=== PATIENT | female | born 1945 | race Caucasian/White ===

== ENCOUNTER 2016-09-27 11:45 | Emergency (ER) | payer MEDICARE, BC ==
[2016-09-27] MEDS ORDERED: IPRATROPIUM/ALBUTEROL (0.5MG/3MG) NEB INH ONE (11:56)
[2016-09-27] MEDS ORDERED: METHYLPREDNISOLONE PF 125MG/VIAL IVP ONE (11:56)
--- NOTE | 2016-09-27 12:05 | Emergency Department Record ---
History of Present Illness - General Chief Complaint: Difficulty Breathing Stated Complaint: CHIDI Time Seen by Provider: 09/27/16 11:55 Source: Patient, Family Mode of Arrival: Wheelchair Limitations: No limitations - History of Present Illness Initial Comments: 70 yo female presents with cough and wheezing today. She has a history of COPD and prior history of PE. She states over the last few weeks she has had good days and bad days regarding her wheezing. Today she feels wheezing and she is short of breath with activity. No fevers. She is on 2 LNC at home. She was diagnosed with a PE in 2014. She is on Coumadin 4mg daily. PCP is Dr Johnston. Her cough is non productive. No pain in the chest. No leg swelling recently. No hemoptysis. MD Complaint: Shortness of breath Onset/Timin -: Days(s) Radiation: Back Consistency: Constant Improves With: Nothing Worsens With: Exertion Associated Symptoms: Denies other symptoms Treatments Prior to Arrival: Bronchodilator Treatment Prior to Arrival Comment:: home breathing tx. - Related Data Home Medications Medication Instructions Recorded Confirmed Last Taken Albuterol Sulfate 1 ml INH DAILY 12/07/13 09/27/16 09/26/16 Albuterol Sulfate [Proair Hfa] 2 puff INH ASDIR 12/07/13 09/27/16 09/26/16 Brovana 2.5 mg PO DAILY 12/07/13 09/27/16 09/26/16 Calcium Carbonate/Vitamin D3 1 tab PO DAILY 12/07/13 09/27/16 09/26/16 [Calcium 600 + Vit D Tablet] Lutein 20 mg PO DAILY 12/07/13 09/27/16 09/26/16 Tiotropium [place] [Spiriva] 1 puff INH DAILY 12/07/13 09/27/16 09/26/16 Atorvastatin Calcium 40 mg PO DAILY 10/13/14 09/27/16 09/26/16 Levothyroxine Sodium [Synthroid] 25 mcg PO DAILY 10/13/14 09/27/16 09/26/16 Ranitidine HCl [Zantac] 75 mg PO QHS PRN 10/13/14 09/27/16 09/26/16 Alendronate Sodium 1 tab PO WEEKLY 11/23/14 09/27/16 09/26/16 Citalopram Hydrobromide 20 mg PO DAILY 11/23/14 09/27/16 09/27/16 [Citalopram HBr] Warfarin Sodium [Coumadin] 4 mg PO DAILY 09/27/16 09/27/16 09/26/16 Previous Rx's Medication Instructions Recorded Amoxicillin 500 mg PO TID #21 capsule 09/27/16 Prednisone [Prednisone 20Mg] 20 mg PO BID #10 tab 09/27/16 Allergies Allergy/AdvReac Type Severity Reaction Status Date / Time regadenoson [From Lexiscan] AdvReac HYPERSENSIT Verified 11/23/14 01:15 IVITY Travel Screening - Travel/Exposure Within Last 30 Days Have you traveled within the last 30 days?: No - Travel/Exposure Within Last Year Have you traveled outside the [place] in the last year?: No - Additonal Travel Details Have you been exposed to anyone with a communicable illness?: No Review of Systems Constitutional: Denies: Chills, Fever, Weakness Eyes: Denies: Eye discharge ENT: Denies: Congestion, Ear pain, Throat pain Respiratory: Reports: Cough, Dyspnea, Wheezes Cardiovascular: Denies: Chest pain, Palpitations, Syncope Endocrine: Denies: Fatigue, Polydipsia, Polyuria Gastrointestinal: Denies: Abdominal pain, Diarrhea, Nausea, Vomiting Genitourinary: Denies: Dysuria, Urgency Musculoskeletal: Denies: Arthralgia, Back pain, Joint swelling, Myalgia, Neck pain Skin: Denies: Bruising, Change in color, Rash Neurological: Denies: Headache, Numbness, Vertigo, Weakness Psychiatric: Denies: Anxiety Hematological/Lymphatic: Denies: Blood Clots, Easy bleeding, Easy bruising, Swollen glands Past Medical History - SOCIAL HISTORY Smoking Status: Former smoker Alcohol Use: None Drug Use: None - RESPIRATORY Hx Respiratory Disorders: Yes Hx Asthma: Yes Hx COPD: Yes Comment:: 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 - CARDIOVASCULAR Hx Cardio Disorders: No - NEURO Hx Neuro Disorders: No - GI Hx GI Disorders: No Hx Obstructive Bowel: Yes - Hx Genitourinary Disorders: No Hx Bladder Problem: Yes - ENDOCRINE Hx Endocrine Disorders: No Hx Diabetes: No Hx Thyroid Disease: Yes - MUSCULOSKELETAL Hx Musculoskeletal Disorders: Yes Hx Arthritis: Yes Hx Osteoporosis: Yes Comment:: leg fx - PSYCH Hx Psych Problems: No - HEMATOLOGY/ONCOLOGY Hx Hematology/Oncology Disorders: Yes Hx Cancer: Yes (Lung) Hx Chemotherapy: Yes Hx Radiation Therapy: Yes Comment:: prophylactic radiation to brain Family Medical History Any Significant Family History?: No Hx Dementia: Grandparents Hx Depression: Mother Hx Heart Disease: Father, Mother, Brother/Sister Hx HTN: Brother/Sister Hx Resp Disorders: Mother Physical Exam - General General Appearance: Alert, Oriented x3, Cooperative, No acute distress - Head Head exam: Atraumatic, Normal inspection - Eye Eye exam: Normal appearance, PERRL. negative: Conjunctival injection, Periorbital swelling - ENT ENT exam: Normal exam, Mucous membranes moist Ear exam: Normal external inspection Nasal Exam: Normal inspection Mouth exam: Normal external inspection Teeth exam: Normal inspection Throat exam: Normal inspection - Neck Neck exam: Normal inspection, Full ROM. negative: Tenderness - Respiratory Respiratory exam: Accessory muscle use, Decreased breath sounds, Prolonged expiratory, Wheezes. negative: Normal lung sounds bilaterally - Cardiovascular Cardiovascular Exam: Normal rhythm, Tachycardia - GI/Abdominal GI/Abdominal exam: Soft. negative: Tenderness - Rectal Rectal exam: Deferred - exam: Deferred - Extremities Extremities exam: Normal inspection, Full ROM, Normal capillary refill. negative: Pedal edema, Tenderness - Back Back exam: Reports: Normal inspection, Full ROM. Denies: Muscle spasm, Rash noted, Tenderness - Neurological Neurological exam: Alert, Normal gait, Oriented X3, Reflexes normal - Psychiatric Psychiatric exam: Normal affect, Normal mood - Skin Skin exam: Dry, Intact, Normal color, Warm Course Vital Signs 09/27/16 11:47 Temperature 98.4 F Pulse Rate 107 H Respiratory 24 Rate Blood Pressure 143/83 Pulse Ox 97 - Reevaluation(s) Reevaluation #1: EKG 11:48am sinus tachycardia at 103, intervals normal, axis normal, ST NS ST depression RT in the room for a breathing treatment 09/27/16 11:59 Reevaluation #2: The labs were reviewed. No acute changes with normal Troponin,BNP, and D-Dimer She is therapeutic on her Coumadin She is feeling greatly improved at this time. 09/27/16 12:53 On examination she is speaking in full sentences, moving air very well. Only minimal residual wheeze. 09/27/16 13:10 09/27/16 13:18 Reevaluation #3: The patient continues to do very well. She feels like she is close to baseline and ready to go home. I encourage longer observation and recheck. CXR is pending. She ambulated to the bathroom well without difficulty 09/27/16 13:56 Reevaluation #4: Repeat enzymes are negative The patient remains very comfortable on her baseline requirements DC home stable. 09/27/16 15:17 Medical Decision Making - Lab Data Result diagrams: 09/27/16 12:05 09/27/16 12:05 Disposition Disposition: Discharge Clinical Impression: COPD exacerbation Disposition: Home, Self-Care Condition: (1) Good Instructions: COPD Exacerbation, Vaccine Specialist (GEN) Additional Instructions: Take the Prednisone twice daily for the next 5 days Take the Amoxicillin three times daily Return if you have fever, short of breath, or any new concerns Antibiotics can effect your Coumadin. You will need to have your levels checked more frequently. Prescriptions: Amoxicillin 500 mg PO TID #21 capsule Prednisone [Prednisone 20Mg] 20 mg PO BID #10 tab Forms: Patient Portal Access Time of Disposition: 15:18
[2016-09-27 12:11] LABS: BASO % 0.6 % (0-6); EOS % 1.9 % (0-6); GRAN % 70.8 % (47-80); HEMATOCRIT 39.1 % (35.0-47.0); HEMOGLOBIN 12.1 gm/dl (11.6-16.0); LYMPH % 15.7 % (16-45); MEAN CELL VOLUME 87.5 fl (81-97); MEAN CORPUSCULAR HEMOGLOBIN 27.1 pg (27-33); MEAN CORPUSCULAR HGB CONC 30.9 g/dl (32-36); MEAN PLATELET VOLUME 9.9 fl (7.4-10.4); PLATELET COUNT 330 K/uL (130-400); RED BLOOD COUNT 4.47 M/uL (3.80-5.40); RED CELL DISTRIBUTION WIDTH 13.9 % (11.5-14.5); WHITE BLOOD COUNT W/O DIFF 6.8 K/uL (4.2-12.2)
[2016-09-27 12:23] LABS: ALB/GLOB RATIO 1.4 (1.1-1.8); ALBUMIN 4.3 gm/dL (3.5-5.0); ALKALINE PHOSPHATASE 99 U/L (38-126); ALT/SGPT 24 U/L (9-52); ANION GAP 6.3 (7-16); AST/SGOT 22 U/L (14-36); BILIRUBIN,TOTAL 0.53 mg/dL (0.2-1.3); BLOOD UREA NITROGEN 10 mg/dL (7-17); CARBON DIOXIDE 27.7 mmol/L (22-30); CREATININE 0.8 mg/dL (0.52-1.04); EST GLOMERULAR FILTRATION RATE > 60 ml/min; GLUCOSE,RANDOM 99 mg/dL (70-110); TOTAL PROTEIN 7.4 gm/dL (6.3-8.2)
[2016-09-27 12:32] LABS: D-DIMER < 0.19 mg/L FEU (0-0.59); INR 3.22; PROTHROMBIN TIME (PATIENT) 36.4 SECONDS (9.5-12.1)
[2016-09-27 12:35] LABS: TROPONIN I < 0.012 ng/mL (0.00-0.034)
[2016-09-27] MEDS ORDERED: AMOXICILLIN 500MG CAPSULE PO ONE (13:58)
--- NOTE | 2016-09-27 15:24 | Emergency Department Record ---
History of Present Illness - General Chief Complaint: Difficulty Breathing Stated Complaint: CHIDI Time Seen by Provider: 09/27/16 11:55 Source: Patient, Family Mode of Arrival: Wheelchair Limitations: No limitations - History of Present Illness Onset/Timin -: Days(s) Radiation: Back Consistency: Constant Improves With: Nothing Worsens With: Exertion Associated Symptoms: Denies other symptoms Treatments Prior to Arrival: Bronchodilator Treatment Prior to Arrival Comment:: home breathing tx. - Related Data Home Medications Medication Instructions Recorded Confirmed Last Taken Albuterol Sulfate 1 ml INH DAILY 12/07/13 09/27/16 09/26/16 Albuterol Sulfate [Proair Hfa] 2 puff INH ASDIR 12/07/13 09/27/16 09/26/16 Brovana 2.5 mg PO DAILY 12/07/13 09/27/16 09/26/16 Calcium Carbonate/Vitamin D3 1 tab PO DAILY 12/07/13 09/27/16 09/26/16 [Calcium 600 + Vit D Tablet] Lutein 20 mg PO DAILY 12/07/13 09/27/16 09/26/16 Tiotropium [place] [Spiriva] 1 puff INH DAILY 12/07/13 09/27/16 09/26/16 Atorvastatin Calcium 40 mg PO DAILY 10/13/14 09/27/16 09/26/16 Levothyroxine Sodium [Synthroid] 25 mcg PO DAILY 10/13/14 09/27/16 09/26/16 Ranitidine HCl [Zantac] 75 mg PO QHS PRN 10/13/14 09/27/16 09/26/16 Alendronate Sodium 1 tab PO WEEKLY 11/23/14 09/27/16 09/26/16 Citalopram Hydrobromide 20 mg PO DAILY 11/23/14 09/27/16 09/27/16 [Citalopram HBr] Warfarin Sodium [Coumadin] 4 mg PO DAILY 09/27/16 09/27/16 09/26/16 Previous Rx's Medication Instructions Recorded Amoxicillin 500 mg PO TID #21 capsule 09/27/16 Amoxicillin 500 mg PO TID #21 capsule 09/27/16 Prednisone [Prednisone 20Mg] 20 mg PO BID #10 tab 09/27/16 Prednisone [Prednisone 20Mg] 20 mg PO BID #10 tab 09/27/16 Allergies Allergy/AdvReac Type Severity Reaction Status Date / Time regadenoson [From Lexiscan] AdvReac HYPERSENSIT Verified 11/23/14 01:15 IVITY Travel Screening - Travel/Exposure Within Last 30 Days Have you traveled within the last 30 days?: No - Travel/Exposure Within Last Year Have you traveled outside the [place] in the last year?: No - Additonal Travel Details Have you been exposed to anyone with a communicable illness?: No Review of Systems Constitutional: Denies: Chills, Fever, Weakness Eyes: Denies: Eye discharge ENT: Denies: Congestion, Ear pain, Throat pain Respiratory: Reports: Cough, Dyspnea, Wheezes Cardiovascular: Denies: Chest pain, Palpitations, Syncope Endocrine: Denies: Fatigue, Polydipsia, Polyuria Gastrointestinal: Denies: Abdominal pain, Diarrhea, Nausea, Vomiting Genitourinary: Denies: Dysuria, Urgency Musculoskeletal: Denies: Arthralgia, Back pain, Joint swelling, Myalgia, Neck pain Skin: Denies: Bruising, Change in color, Rash Neurological: Denies: Headache, Numbness, Vertigo, Weakness Psychiatric: Denies: Anxiety Hematological/Lymphatic: Denies: Blood Clots, Easy bleeding, Easy bruising, Swollen glands Past Medical History - SOCIAL HISTORY Smoking Status: Former smoker Alcohol Use: None Drug Use: None - RESPIRATORY Hx Respiratory Disorders: Yes Hx Asthma: Yes Hx COPD: Yes Comment:: 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 - CARDIOVASCULAR Hx Cardio Disorders: No - NEURO Hx Neuro Disorders: No - GI Hx GI Disorders: No Hx Obstructive Bowel: Yes - Hx Genitourinary Disorders: No Hx Bladder Problem: Yes - ENDOCRINE Hx Endocrine Disorders: No Hx Diabetes: No Hx Thyroid Disease: Yes - MUSCULOSKELETAL Hx Musculoskeletal Disorders: Yes Hx Arthritis: Yes Hx Osteoporosis: Yes Comment:: leg fx - PSYCH Hx Psych Problems: No - HEMATOLOGY/ONCOLOGY Hx Hematology/Oncology Disorders: Yes Hx Cancer: Yes (Lung) Hx Chemotherapy: Yes Hx Radiation Therapy: Yes Comment:: prophylactic radiation to brain Family Medical History Any Significant Family History?: No Hx Dementia: Grandparents Hx Depression: Mother Hx Heart Disease: Father, Mother, Brother/Sister Hx HTN: Brother/Sister Hx Resp Disorders: Mother Physical Exam - General Limitations: No limitations Course Vital Signs 09/27/16 09/27/16 09/27/16 11:47 12:02 12:10 Temperature 98.4 F Pulse Rate 107 H 98 H Pulse Rate [ 91 H Pulse Ox Probe] Respiratory 24 20 20 Rate Blood Pressure 143/83 Blood Pressure 110/66 [Right Arm] Pulse Ox 97 98 98 09/27/16 09/27/16 13:34 14:14 Temperature Pulse Rate Pulse Rate [ 92 H 88 Pulse Ox Probe] Respiratory 16 16 Rate Blood Pressure Blood Pressure 129/82 128/82 [Right Arm] Pulse Ox 98 98 Medical Decision Making - Lab Data Result diagrams: 09/27/16 12:05 09/27/16 12:05 Lab Results 09/27/16 09/27/16 09/27/16 Range/Units 12:05 12:05 12:05 WBC 6.8 (4.2-12.2) K/uL RBC 4.47 (3.80-5.40) M/uL Hgb 12.1 (11.6-16.0) gm/dl Hct 39.1 (35.0-47.0) % MCV 87.5 (81-97) fl MCH 27.1 (27-33) pg MCHC 30.9 L (32-36) g/dl RDW 13.9 (11.5-14.5) % Plt Count 330 (130-400) K/uL MPV 9.9 (7.4-10.4) fl Gran % 70.8 (47-80) % Lymphocytes % 15.7 L (16-45) % Monocytes % 11.0 H (0-9) % Eosinophils % 1.9 (0-6) % Basophils % 0.6 (0-6) % PT 36.4 H (9.5-12.1) SECONDS INR 3.22 APTT 43.30 H (24.5-39.1) SECONDS D-Dimer < 0.19 (0-0.59) mg/L FEU Sodium 137 (136-145) mmol/L Potassium 4.3 (3.5-5.1) mmol/L Chloride 103 (98-107) mmol/L Carbon Dioxide 27.7 (22-30) mmol/L Anion Gap 6.3 L (7-16) BUN 10 (7-17) mg/dL Creatinine 0.8 (0.52-1.04) mg/dL Estimated GFR > 60 ml/min Random Glucose 99 (70-110) mg/dL Calcium 8.9 (8.5-10.1) mg/dL Total Bilirubin 0.53 (0.2-1.3) mg/dL AST 22 (14-36) U/L ALT 24 (9-52) U/L Alkaline Phosphatase 99 (38-126) U/L Troponin I < 0.012 (0.00-0.034) ng/mL NT-Pro-B Natriuret Pep 117.00 (<125) pg/mL Total Protein 7.4 (6.3-8.2) gm/dL Albumin 4.3 (3.5-5.0) gm/dL Globulin 3.1 (1.4-4.8) gm/dL Albumin/Globulin Ratio 1.4 (1.1-1.8) /05/04 Range/Units 14:49 WBC (4.2-12.2) K/uL RBC (3.80-5.40) M/uL Hgb (11.6-16.0) gm/dl Hct (35.0-47.0) % MCV (81-97) fl MCH (27-33) pg MCHC (32-36) g/dl RDW (11.5-14.5) % Plt Count (130-400) K/uL MPV (7.4-10.4) fl Gran % (47-80) % Lymphocytes % (16-45) % Monocytes % (0-9) % Eosinophils % (0-6) % Basophils % (0-6) % PT (9.5-12.1) SECONDS INR APTT (24.5-39.1) SECONDS D-Dimer (0-0.59) mg/L FEU Sodium (136-145) mmol/L Potassium (3.5-5.1) mmol/L Chloride (98-107) mmol/L Carbon Dioxide (22-30) mmol/L Anion Gap (7-16) BUN (7-17) mg/dL Creatinine (0.52-1.04) mg/dL Estimated GFR ml/min Random Glucose (70-110) mg/dL Calcium (8.5-10.1) mg/dL Total Bilirubin (0.2-1.3) mg/dL AST (14-36) U/L ALT (9-52) U/L Alkaline Phosphatase (38-126) U/L Troponin I < 0.012 (0.00-0.034) ng/mL NT-Pro-B Natriuret Pep (<125) pg/mL Total Protein (6.3-8.2) gm/dL Albumin (3.5-5.0) gm/dL Globulin (1.4-4.8) gm/dL Albumin/Globulin Ratio (1.1-1.8) Disposition Disposition: Discharge Clinical Impression: COPD exacerbation Disposition: Home, Self-Care Condition: (1) Good Instructions: COPD Exacerbation, Cheese Supervisor (GEN) Additional Instructions: Take the Prednisone twice daily for the next 5 days Take the Amoxicillin three times daily Return if you have fever, short of breath, or any new concerns Antibiotics can effect your Coumadin. You will need to have your levels checked more frequently. Prescriptions: Amoxicillin 500 mg PO TID #21 capsule Amoxicillin 500 mg PO TID #21 capsule Prednisone [Prednisone 20Mg] 20 mg PO BID #10 tab Prednisone [Prednisone 20Mg] 20 mg PO BID #10 tab Forms: Patient Portal Access
[2016-09-27 15:53] LABS: URINE APPEARANCE CLEAR; URINE BILIRUBIN NEGATIVE (NEGATIVE); URINE BLOOD TRACE-I (NEGATIVE); URINE COLOR YELLOW; URINE GLUCOSE (UA) NEGATIVE (NEGATIVE); URINE KETONE NEGATIVE (NEGATIVE); URINE LEUKOCYTE ESTERASE NEGATIVE (NEGATIVE); URINE NITRITE NEGATIVE (NEGATIVE); URINE PROTEIN NEGATIVE (NEGATIVE); URINE UROBILINOGEN 0.2 E.U./dL (0.20 - 1.00)
[2016-09-27 15:59] LABS: URINE WBC NONE SEEN (0-2/hpf)
[2016-09-27 16:00] LABS: URINE BACTERIA NONE SEEN
== END 2016-09-27 15:54 | disposition home or self-care (01) ==
LOC: ER 11:45
DX: J44.1 Chronic obstructive pulmonary disease with (acute) exacerbation (principal); Z87.891 Personal history of nicotine dependence
CPT/HCPCS: 71020; 80053; 81001; 83880; 84484; 85025; 85379; 85610; 85730; 93005; 93010; 94640; 96374; 99284; J2930

== ENCOUNTER 2016-11-14 21:15 | Emergency (ER) | payer MEDICARE, BC ==
[2016-11-14] MEDS ORDERED: ALBUTEROL SULFATE (0.083%) 2.5 MG/3 ML NEB INH ONE (21:20)
[2016-11-14] MEDS ORDERED: METHYLPREDNISOLONE PF 125MG/VIAL IVP ONE (21:20)
--- NOTE | 2016-11-14 21:25 | Emergency Department Record ---
History of Present Illness - General Chief Complaint: Shortness of breath Stated Complaint: SOB Time Seen by Provider: 11/14/16 21:19 Source: Patient, EMS - History of Present Illness Initial Comments: EMS reports that the patient has had CHIDI for several days. Today she has worsened CHIDI with CHIDI just ambulating in her home. She denies a change in her sputum color, which has remained white. She denies f,c, vomiting, AP, or leg pains/swelling. She has a history of lung cancer, scarring from the radiation to her lungs, COPD, PE. She says, "the usually give me a shot of steroids and antibiotics and send me home." She is on blood thinners. MD Complaint: Shortness of breath - Related Data Home Medications Medication Instructions Recorded Confirmed Last Taken Albuterol Sulfate [Proair Hfa] 2 puff INH ASDIR 12/07/13 11/14/16 09/26/16 Brovana 2.5 mg PO DAILY 12/07/13 11/14/16 09/26/16 Calcium Carbonate/Vitamin D3 1 tab PO DAILY 12/07/13 11/14/16 09/26/16 [Calcium 600 + Vit D Tablet] Lutein 20 mg PO DAILY 12/07/13 11/14/16 09/26/16 Tiotropium [place] [Spiriva] 1 puff INH DAILY 12/07/13 11/14/16 09/26/16 Atorvastatin Calcium 40 mg PO DAILY 10/13/14 11/14/16 09/26/16 Levothyroxine Sodium [Synthroid] 25 mcg PO DAILY 10/13/14 11/14/16 09/26/16 Ranitidine HCl [Zantac] 75 mg PO QHS PRN 10/13/14 11/14/16 09/26/16 Alendronate Sodium 1 tab PO WEEKLY 11/23/14 11/14/16 09/26/16 Citalopram Hydrobromide 20 mg PO DAILY 11/23/14 11/14/16 09/27/16 [Citalopram HBr] Warfarin Sodium [Coumadin] 4 mg PO DAILY 09/27/16 11/14/16 09/26/16 Allergies Allergy/AdvReac Type Severity Reaction Status Date / Time regadenoson [From Lexiscan] AdvReac HYPERSENSIT Verified 07/08/15 01:15 IVITY Review of Systems Reviewed: No additional complaints except as noted below Constitutional: Reports: As per HPI. Denies: Chills, Fever, Malaise, Night sweats, Weakness, Weight change Eyes: Reports: As per HPI. Denies: Eye discharge, Eye pain, Photophobia, Vision change ENT: Reports: As per HPI. Denies: Congestion, Dental pain, Ear pain, Epistaxis , Hearing loss, Throat pain Respiratory: Reports: As per HPI. Denies: Cough, Dyspnea, Hemoptysis, Stridor, Wheezes Cardiovascular: Reports: As per HPI. Denies: Arrhythmia, Chest pain, Dyspnea on exertion, Edema, Murmurs, Orthopnea, Palpitations, Paroxysmal nocturnal dyspnea, Rheumatic Fever, Syncope Endocrine: Reports: As per HPI. Denies: Fatigue, Heat or cold intolerance, Polydipsia, Polyuria Gastrointestinal: Reports: As per HPI. Denies: Abdominal pain, Constipation, Diarrhea, Hematemesis, Hematochezia, Melena, Nausea, Vomiting Genitourinary: Reports: As per HPI. Denies: Abnormal menses, Discharge, Dyspareunia, Dysuria, Frequency, Hematuria, Incontinence, Retention, Urgency Musculoskeletal: Reports: As per HPI. Denies: Arthralgia, Back pain, Gout, Joint swelling, Myalgia, Neck pain Skin: Reports: As per HPI. Denies: Bruising, Change in color, Change in hair/ nails, Lesions, Pruritus, Rash Neurological: Reports: As per HPI. Denies: Abnormal gait, Confusion, Headache, Numbness, Paresthesias, Seizure, Tingling, Tremors, Vertigo, Weakness Psychiatric: Reports: As per HPI. Denies: Anxiety, Auditory hallucinations, Depression, Homicidal thoughts, Suicidal thoughts, Visual hallucinations Hematological/Lymphatic: Reports: As per HPI. 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 - CARDIOVASCULAR Hx Cardio Disorders: No - NEURO Hx Neuro Disorders: No - GI Hx GI Disorders: No Hx Obstructive Bowel: Yes - Hx Genitourinary Disorders: No Hx Bladder Problem: Yes - ENDOCRINE Hx Endocrine Disorders: No Hx Diabetes: No Hx Thyroid Disease: Yes - MUSCULOSKELETAL Hx Musculoskeletal Disorders: Yes Hx Arthritis: Yes Hx Osteoporosis: Yes Comment:: leg fx - PSYCH Hx Psych Problems: No - HEMATOLOGY/ONCOLOGY Hx Hematology/Oncology Disorders: Yes Hx Cancer: Yes (Lung) Hx Chemotherapy: Yes Hx Radiation Therapy: Yes Comment:: prophylactic radiation to brain Family Medical History Hx Dementia: Grandparents Hx Depression: Mother Hx Heart Disease: Father, Mother, Brother/Sister Hx HTN: Brother/Sister Hx Resp Disorders: Mother Physical Exam - General General Appearance: Alert, Oriented x3, Cooperative, Mild distress (speaks full sentences with a trace of breathlessness) - Head Head exam: Normal inspection - Eye Eye exam: Normal appearance, PERRL Pupils: Normal accommodation - ENT ENT exam: Normal exam, Mucous membranes moist, Normal external ear exam, Normal orophraynx, TM's normal bilaterally Ear exam: Normal external inspection. negative: External canal tenderness Nasal Exam: Normal inspection. negative: Discharge, Sinus tenderness Mouth exam: Normal external inspection, Tongue normal Teeth exam: Normal inspection. negative: Dental caries Throat exam: Normal inspection. negative: Tonsillar erythema, Tonsillar exudate - Neck Neck exam: Normal inspection, Full ROM. negative: Lymphadenopathy, Meningismus , Tenderness - Respiratory Respiratory exam: Decreased breath sounds, Prolonged expiratory, Wheezes ( expiratory wheezes bilaterally. ). negative: Respiratory distress - Cardiovascular Cardiovascular Exam: Regular rate, Normal rhythm, Normal heart sounds - GI/Abdominal GI/Abdominal exam: Soft, Normal bowel sounds. negative: Distended, Guarding, Tenderness - Rectal Rectal exam: Deferred - exam: Deferred - Extremities Extremities exam: Normal inspection, Full ROM, Normal capillary refill. negative: Calf tenderness, Pedal edema, Tenderness - Back Back exam: Reports: Normal inspection, Full ROM. Denies: Muscle spasm, Rash noted, Tenderness - Neurological Neurological exam: Alert, Normal gait, Oriented X3, Reflexes normal - Psychiatric Psychiatric exam: Normal affect, Normal mood - Skin Skin exam: Dry, Intact, Normal color, Warm Course - Reevaluation(s) Reevaluation #1: Feeling improved after her albuterol nebulizer here. Awaiting results. Patient is conversing comfortably with her sister. 11/14/16 23:30 Reevaluation #2: Patient states her breathing is better although it is never normal. She states she does NOT want admission but wants to go home. She sent her sister to get her oxygen tank and she will be right back to drive her home. She is requesting a GI cocktail to settle her stomach and then wants to go home. She has oxygen, nebulizers, and medications at home. 11/14/16 23:40 11/14/16 23:41 Medical Decision Making - Management Options MDM Management: No Additional Work-up Planned - Data Complexity MDM Data: Labs Ordered and/or Reviewed, X-Ray Ordered and/or Reviewed (CXR two view: Hyperinflation consistent with COPD, chronic scarring expecially over left hilar region as before, stable changes from August 2016. Per radiologist.), EKG Ordered and/or Reviewed - Lab Data Result diagrams: 11/14/16 21:02 11/14/16 21:02 - EKG Data -: EKG Interpreted by Me EKG: No Acute Changes, Unchanged From Previous (previous of 09-27-16) Disposition Disposition: Discharge Clinical Impression: COPD exacerbation Disposition: Home, Self-Care Condition: (2) Stable Additional Instructions: Home with sister. Continue present meds. Follow up with Dr. Johnston next week as needed. Return if you are worsened before that. Forms: Patient Portal Access
[2016-11-14 21:36] LABS: BASO % 0.4 % (0-6); EOS % 1.1 % (0-6); GRAN % 69.2 % (47-80); HEMATOCRIT 38.2 % (35.0-47.0); LYMPH % 18.5 % (16-45); MEAN CORPUSCULAR HEMOGLOBIN 27.6 pg (27-33); MEAN CORPUSCULAR HGB CONC 31.4 g/dl (32-36); MEAN PLATELET VOLUME 10.3 fl (7.4-10.4); MONO % 10.8 % (0-9); PLATELET COUNT 354 K/uL (130-400); RED BLOOD COUNT 4.34 M/uL (3.80-5.40); RED CELL DISTRIBUTION WIDTH 14.1 % (11.5-14.5); WHITE BLOOD COUNT W/O DIFF 10.3 K/uL (4.2-12.2)
[2016-11-14 21:44] LABS: ANION GAP 6.1 (7-16); BLOOD UREA NITROGEN 10 mg/dL (7-17); CARBON DIOXIDE 28.9 mmol/L (22-30); CREATININE 0.8 mg/dL (0.52-1.04); EST GLOMERULAR FILTRATION RATE > 60 ml/min; GLUCOSE,RANDOM 101 mg/dL (70-110)
[2016-11-14 21:48] LABS: D-DIMER < 0.19 mg/L FEU (0-0.59); INR 3.45
[2016-11-14 21:57] LABS: TROPONIN I < 0.012 ng/mL (0.00-0.034)
[2016-11-14 22:36] LABS: URINE APPEARANCE CLEAR; URINE BILIRUBIN NEGATIVE (NEGATIVE); URINE BLOOD TRACE-I (NEGATIVE); URINE COLOR YELLOW; URINE GLUCOSE (UA) NEGATIVE (NEGATIVE); URINE KETONE NEGATIVE (NEGATIVE); URINE LEUKOCYTE ESTERASE NEGATIVE (NEGATIVE); URINE NITRITE NEGATIVE (NEGATIVE); URINE PROTEIN NEGATIVE (NEGATIVE); URINE UROBILINOGEN 0.2 E.U./dL (0.20 - 1.00)
[2016-11-14 22:49] LABS: URINE EPITHELIAL CELLS 0 - 2 (FEW); URINE WBC 0 - 2 (0-2/hpf)
[2016-11-14] MEDS ORDERED: ONDANSETRON HCL IV 4 MG/2 ML VIAL IVP ONE (22:55)
[2016-11-14] MEDS ORDERED: MAGNESIUM HYDROXIDE/AL HYDROX 30 ML, LIDOCAINE VISC 2% 200 MG PO ONE ×2 (23:39)
--- NOTE | 2016-11-16 15:37 | RADIOLOGY REPORT ---
DATE: 11/14/2016 at 22:06. EXAM: CHEST, TWO VIEWS HISTORY: Shortness of breath. Productive cough. Lung cancer history. TECHNIQUE: Upright PA and lateral views of the chest. COMPARISON: Two-view chest radiographic examination dated 09/27/2016. FINDINGS: The heart is not enlarged. No pulmonary venous hypertension is seen. Prominence of the left hilum is again identified, stable. No new lung parenchymal opacity is seen; nor is there costophrenic angle blunting or pneumothorax. A prominent left pericardial fat pad is again suggested. The lungs are hyperinflated consistent with COPD. There are degenerative changes scattered within the visualized spine and shoulder girdles. IMPRESSION: 1. STABLE RADIOGRAPHIC APPEARANCE OF THE CHEST GIVEN DIFFERENCES IN TECHNIQUE SINCE 09/27/2016. 2. HYPERINFLATION OF THE LUNGS IS REDEMONSTRATED CONSISTENT WITH COPD. REDEMONSTRATION OF MILD PROMINENCE OF THE LEFT HILUM WITH ELEVATION LIKELY RELATING TO SCARRING. JOB NUMBER: [id number] MTDD
== END 2016-11-15 00:01 | disposition home or self-care (01) ==
LOC: ER 21:15
DX: J44.1 Chronic obstructive pulmonary disease with (acute) exacerbation (principal); Z99.81 Dependence on supplemental oxygen; Z87.891 Personal history of nicotine dependence; Z85.118 Personal history of other malignant neoplasm of bronchus and lung
CPT/HCPCS: 99284 ×2; 96374; 96375; 85025; 85730; 85610; 84484; 80048; 81001; 85379; 83880; 71020; 94640; 93005; 93010; J2405; J2930; J7613

== ENCOUNTER 2017-01-02 11:51 | Inpatient (IN) | payer MEDICARE, BC ==
--- NOTE | 2017-01-02 12:22 | Emergency Department Record ---
History of Present Illness - General Chief Complaint: Dizziness Stated Complaint: VOMITING/NOT FELLING WELL Time Seen by Provider: 01/02/17 12:07 Source: Patient Mode of Arrival: Wheelchair Limitations: No limitations - History of Present Illness Initial Comments: 71 yo female presents to ED with a CC of dizziness, nausea, and generalized weakness which began 2 days ago, dizziness improved today where she reports that she was able to ambulate. Patient reports that yesterday she was unable to get out of bed due to her dizziness and weakness symptoms resulting in incontinence in the bed. Patient denies fevers, chills, or recent illness symptoms. Patient also denies focal weakness or change in speech on examination. Patient does report a significant history of COPD that is oxygen dependent, recently stopped prednisone for her symptoms. Onset/Timin -: Days(s) Timing: Unsure Description: Difficulty walking, Off-balance History of Same: No History of Trauma: No Severity: Mild Improves With: Nothing Worsens With: Movement Associated Symptoms: Cough - Best Coma Scale Eye Response: (4) Open spontaneously Motor Response: (6) Obeys commands Verbal Response: (5) Oriented Best Total: 15 - Related Data Home Medications Medication Instructions Recorded Confirmed Last Taken Albuterol Sulfate [Proair Hfa] 2 puff INH ASDIR 12/07/13 01/02/17 09/26/16 Brovana 150 mcg PO DAILY 12/07/13 01/02/17 09/26/16 Calcium Carbonate/Vitamin D3 1 tab PO DAILY 12/07/13 01/02/17 09/26/16 [Calcium 600 + Vit D Tablet] Tiotropium [place] [Spiriva] 1 puff INH DAILY 12/07/13 01/02/17 09/26/16 Atorvastatin Calcium 40 mg PO DAILY 10/13/14 01/02/17 09/26/16 Levothyroxine Sodium [Synthroid] 25 mcg PO DAILY 10/13/14 01/02/17 09/26/16 Ranitidine HCl [Zantac] 75 mg PO QHS PRN 10/13/14 01/02/17 09/26/16 Alendronate Sodium 1 tab PO WEEKLY 11/23/14 01/02/17 09/26/16 Citalopram Hydrobromide 20 mg PO DAILY 11/23/14 01/02/17 09/27/16 [Citalopram HBr] Warfarin Sodium [Coumadin] 4 mg PO DAILY 09/27/16 01/02/17 09/26/16 Acetaminophen 500 mg PO ASDIR 01/02/17 01/02/17 Unknown Albuterol Sulfate 0.083% [Neb] 3 ml NEB .EVERY 4-6 HOURS PRN 01/02/17 01/02/17 Unknown Baclofen 10 mg PO ASDIR 01/02/17 01/02/17 Unknown Solifenacin Succinate [Vesicare] 10 mg PO DAILY 01/02/17 01/02/17 Unknown Tramadol HCl [Ultram] 50 mg PO ASDIR 01/02/17 01/02/17 Unknown Allergies Allergy/AdvReac Type Severity Reaction Status Date / Time regadenoson [From Lexiscan] AdvReac HYPERSENSIT Verified 11/23/14 01:15 IVITY Travel Screening - Travel/Exposure Within Last 30 Days Have you traveled within the last 30 days?: No Review of Systems Constitutional: Denies: Chills, Fever, Malaise, Night sweats Eyes: Denies: Eye discharge, Eye pain ENT: Denies: Congestion, Ear pain, Epistaxis Respiratory: Denies: Cough, Dyspnea Cardiovascular: Denies: Chest pain, Dyspnea on exertion Endocrine: Denies: Fatigue, Heat or cold intolerance Gastrointestinal: Reports: Nausea, Vomiting (x 1). Denies: Abdominal pain Genitourinary: Reports: Incontinence. Denies: Retention Musculoskeletal: Denies: Arthralgia, Back pain, Gout, Joint swelling Skin: Denies: Bruising, Change in color Neurological: Reports: Vertigo. Denies: Abnormal gait, Confusion, Headache, Numbness Psychiatric: Denies: Anxiety Hematological/Lymphatic: Reports: Blood Clots. 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, emphysema - CARDIOVASCULAR Hx Cardio Disorders: Yes Hx Hypertension: Yes Comment:: high cholesterol - NEURO Hx Neuro Disorders: No - GI Hx GI Disorders: No Hx Obstructive Bowel: Yes - Hx Genitourinary Disorders: No Hx Bladder Problem: Yes - ENDOCRINE Hx Endocrine Disorders: No Hx Diabetes: No Hx Thyroid Disease: Yes - MUSCULOSKELETAL Hx Musculoskeletal Disorders: Yes Hx Arthritis: Yes Hx Osteoporosis: Yes - PSYCH Hx Psych Problems: No - HEMATOLOGY/ONCOLOGY Hx Hematology/Oncology Disorders: Yes Hx Cancer: Yes (Lung) Hx Chemotherapy: Yes Hx Radiation Therapy: Yes Comment:: prophylactic radiation to brain Family Medical History Any Significant Family History?: Yes Hx Dementia: Grandparents Hx Depression: Mother Hx Heart Disease: Father, Mother, Brother/Sister Hx HTN: Brother/Sister Hx Resp Disorders: Mother Physical Exam - General General Appearance: Alert, Oriented x3, Cooperative Limitations: No limitations - Head Head exam: Atraumatic, Normocephalic, Normal inspection Head exam detail: negative: Abrasion, Contusion, Huitron's sign, General tenderness, Hematoma, Laceration - Eye Eye exam: Normal appearance. negative: Conjunctival injection, Periorbital swelling, Periorbital tenderness, Scleral icterus - ENT ENT exam: Mucous membranes dry Ear exam: negative: Auricular hematoma, Auricular trauma Nasal Exam: negative: Active bleeding, Discharge, Dried blood, Foreign body Mouth exam: negative: Drooling, Laceration, Muffled voice, Tongue elevation - Neck Neck exam: Normal inspection. negative: Meningismus, Tenderness - Respiratory Respiratory exam: Decreased breath sounds, Wheezes. negative: Respiratory distress, Rhonchi, Stridor - Cardiovascular Cardiovascular Exam: Regular rate, Normal rhythm, Normal heart sounds - GI/Abdominal GI/Abdominal exam: Soft. negative: Rebound, Rigid, Tenderness - Rectal Rectal exam: Deferred - exam: Deferred - Extremities Extremities exam: negative: Calf tenderness, Pedal edema, Tenderness - Back Back exam: Denies: CVA tenderness (R), CVA tenderness (L), Rash noted - Neurological Neurological exam: Alert, CN II-XII intact, Oriented X3. negative: Motor sensory deficit - Psychiatric Psychiatric exam: Normal affect, Normal mood - Skin Skin exam: Normal color. negative: Abrasion Type of lesion: negative: abrasion Course Vital Signs 01/02/17 11:56 Temperature 99.0 F Pulse Rate 95 H Respiratory 22 Rate Blood Pressure 143/77 Pulse Ox 94 L - Reevaluation(s) Reevaluation #1: 01/02/17 12:36 Bladder scan performed, approximately 12 mL retained currently. Given the patient's clinical dehydration, will initiate IVFs in ED and encourage PO fluids to obtain UA sample. Reevaluation #2: 01/02/17 13:14 Labs reviewed, INR 2.80, labs are otherwise grossly unremarkable for an acute process. UA pending. Reevaluation #3: 01/02/17 13:43 CT Brain: Nothing acute, small vessel ischemic change present, 1.0 cm oval lucency to the right parietal bone, recommend outpatient bone scan for further evaluation. NOTE: This finding was discussed with the patient as well as follow-up with bone scan as an outpatient. Patient verbalizes understanding of these instructions. CXR: COPD, chronic changes, nothing acute. 01/02/17 13:57 Reevaluation #4: 01/02/17 13:53 EKG: NSR 65 Normal axis, normal intervals No acute ST-T wave changes No significant change from 11/14/16 Reevaluation #5: 01/02/17 14:35 UA reviewed and appears negative for infection. Patient is eating and drinking fluids currently, symptoms appear improved on re-examination. Will perform ambulation trial to determine her disposition. Bone scan as an outpatient was discussed with both the patient (again) as well as the patient's daughter at the bedside. 01/02/17 14:53 Patient reassessed following ambulation trial, reports that she is more short of breath than usual however her nausea/vomiting/dizziness symptoms are improved. Will admit for observation for COPD exacerbation, solumedrol loading dose given in ED as well. 01/02/17 15:00 Case was discussed with Mariaa ZAMUDIO, will accept patient for admission. Medical Decision Making - Lab Data Result diagrams: 01/02/17 12:32 01/02/17 12:15 Disposition Disposition: Admit Clinical Impression: Vertigo, COPD exacerbation Nausea & vomiting Qualifiers: Vomiting type: unspecified Vomiting Intractability: non-intractable Qualified Code(s): R11.2 - Nausea with vomiting, unspecified Disposition: Still a Patient at [facility] Decision to Admit: Admit from ER Decision to Admit Date: 01/02/17 Decision to Admit Time: 14:54 Condition: (2) Stable Time of Disposition: 14:55 Quality - Quality Measures Quality Measures: N/A - Blood Pressure Screening Does Patient Have Any of the Following: Active Dx of HTN Blood Pressure Classification: Hypertensive Reading Systolic Measurement: 143 Diastolic Measurement: 77 Screening for High Blood Pressure: Patient Exclusion, Hx of HTN [[id number]] First Hypertensive Follow-up Interventions: Referral to alternative/primary care provider.
[2017-01-02 12:41] LABS: HEMATOCRIT 34.9 % (35.0-47.0); HEMOGLOBIN 11.3 gm/dl (11.6-16.0); MEAN CELL VOLUME 88.8 fl (81-97); MEAN CORPUSCULAR HGB CONC 32.4 g/dl (32-36); MEAN PLATELET VOLUME 10.1 fl (7.4-10.4); PLATELET COUNT 237 K/uL (130-400); RED BLOOD COUNT 3.93 M/uL (3.80-5.40); RED CELL DISTRIBUTION WIDTH 13.7 % (11.5-14.5); WHITE BLOOD COUNT W/O DIFF 9.3 K/uL (4.2-12.2)
[2017-01-02 12:44] LABS: MEAN CORPUSCULAR HEMOGLOBIN 28.7 pg (27-33)
[2017-01-02] MEDS ORDERED: 0.9 % SODIUM CHLORIDE 1000ML 500 ML IV SCH (12:45)
[2017-01-02 12:54] LABS: INR 2.8; PROTHROMBIN TIME (PATIENT) 30.6 SECONDS (9.5-12.1)
[2017-01-02 12:55] LABS: LACTIC ACID 0.8 mmol/L (0.7-2.1)
[2017-01-02 13:11] LABS: BLOOD UREA NITROGEN 10 mg/dL (7-17); CREATININE 0.8 mg/dL (0.52-1.04); EST GLOMERULAR FILTRATION RATE > 60 ml/min; GLUCOSE,RANDOM 95 mg/dL (70-110)
[2017-01-02 13:12] LABS: ALB/GLOB RATIO 1.3 (1.1-1.8); ALBUMIN 3.9 gm/dL (3.5-5.0); ALKALINE PHOSPHATASE 68 U/L (38-126); ALT/SGPT 36 U/L (9-52); AST/SGOT 20 U/L (14-36); CREATINE PHOSPHOKINASE 88 U/L (30-135); TOTAL PROTEIN 6.9 gm/dL (6.3-8.2)
[2017-01-02 13:13] LABS: TROPONIN I < 0.012 ng/mL (0.00-0.034)
[2017-01-02 14:11] LABS: URINE APPEARANCE CLEAR; URINE BILIRUBIN NEGATIVE (NEGATIVE); URINE BLOOD MODERATE (NEGATIVE); URINE COLOR YELLOW; URINE GLUCOSE (UA) NEGATIVE (NEGATIVE); URINE KETONE TRACE (NEGATIVE); URINE LEUKOCYTE ESTERASE NEGATIVE (NEGATIVE); URINE NITRITE NEGATIVE (NEGATIVE); URINE PROTEIN NEGATIVE (NEGATIVE); URINE UROBILINOGEN 0.2 E.U./dL (0.20 - 1.00)
[2017-01-02 14:23] LABS: URINE WBC 0 - 2 (0-2/hpf)
[2017-01-02] MEDS ORDERED: METHYLPREDNISOLONE PF 125MG/VIAL IVP ONE (14:52)
[2017-01-02] MEDS ORDERED: ACETAMINOPHEN 500 MG TABLET PO PRN (14:56)
[2017-01-02] MEDS ORDERED: ALBUTEROL SULFATE (0.083%) 2.5 MG/3 ML NEB INH PRN (14:56)
[2017-01-02] MEDS ORDERED: 0.9 % SODIUM CHLORIDE 1000ML 1,000 ML IV PRN (14:56)
[2017-01-02] MEDS ORDERED: ONDANSETRON HCL IV 4 MG/2 ML VIAL IVP PRN (15:00)
[2017-01-02] MEDS: IPRATROPIUM/ALBUTEROL (0.5MG/3MG) NEB INH SCH ×2 (17:09→21:40)
[2017-01-02] MEDS: LEVOFLOXACIN/D5W 750 MG/150 ML BAG IVPB SCH (17:58)
[2017-01-02] MEDS: BROVANA 15 MCG/2 ML INH SCH (23:06)
[2017-01-02] MEDS: DIPHENHYDRAMINE HCL 25 MG CAPSULE PO PRN (23:49)
[2017-01-02] MEDS: ATORVASTATIN 20 MG TABLET PO SCH (23:50)
[2017-01-02] MEDS ORDERED: WARFARIN 1 MG TABLET PO SCH (23:58)
[2017-01-02] MEDS: METHYLPREDNISOLONE SOD 40MG/VIAL IVP SCH (23:59)
[2017-01-03] MEDS: IPRATROPIUM/ALBUTEROL (0.5MG/3MG) NEB INH SCH ×5 (06:08→21:45)
[2017-01-03 06:17] LABS: HEMATOCRIT 31.7 % (35.0-47.0); HEMOGLOBIN 10.2 gm/dl (11.6-16.0); MEAN CELL VOLUME 87.8 fl (81-97); MEAN CORPUSCULAR HGB CONC 32.2 g/dl (32-36); MEAN PLATELET VOLUME 10.2 fl (7.4-10.4); PLATELET COUNT 235 K/uL (130-400); RED BLOOD COUNT 3.61 M/uL (3.80-5.40); RED CELL DISTRIBUTION WIDTH 13.7 % (11.5-14.5); WHITE BLOOD COUNT W/O DIFF 6.6 K/uL (4.2-12.2)
[2017-01-03 06:20] LABS: MEAN CORPUSCULAR HEMOGLOBIN 28.2 pg (27-33)
[2017-01-03] MEDS: METHYLPREDNISOLONE SOD 40MG/VIAL IVP SCH ×3 (06:24→18:24)
[2017-01-03] MEDS: LEVOTHYROXINE SODIUM 25 MCG TABLET PO SCH (06:25)
[2017-01-03 06:26] LABS: INR 2.51; PROTHROMBIN TIME (PATIENT) 27.4 SECONDS (9.5-12.1)
[2017-01-03 06:28] LABS: PLATELET ESTIMATE NORMAL (NORMAL)
--- NOTE | 2017-01-03 07:23 | CT SCAN REPORT ---
EXAM: EMERGENCY HEAD CT HISTORY: WEAKNESS, VERTIGO. TECHNIQUE: Axial CT scan of the head was performed without IV contrast. Comparison: None. Hand dominance: Right. FINDINGS: No definite acute intracranial hemorrhage identified. No focal mass effect or midline shift apparent. No definite acute infarct or intracranial mass lesion is seen. There is moderate generalized atrophy present and there is diffuse deep white matter low attenuation evident, nonspecific, but likely representing some chronic small vessel deep white matter ischemic disease. Moderate membrane thickening in the ethmoids bilaterally and in the right side of the sphenoid sinus. There is opacification of several right mastoid air cells particularly inferiorly as well. There is also a single approximately 9.5 mm oval radiolucent lesion in the right parietal calvarium that appears excentrically to involve the outer table. This does not appear typical for a simple venous ma and is nonspecific. Total body bone scan suggested for further evaluation. IMPRESSION: 1. NO DEFINITE ACUTE INTRACRANIAL HEMORRHAGE OR FOCAL MASS EFFECT EVIDENT. 2. GENERALIZED ATROPHY WITH CHRONIC APPEARING DEEP WHITE MATTER CHANGES. 3. SOME MEMBRANE THICKENING IN THE ETHMOIDS BILATERALLY AND IN THE RIGHT SPHENOID SINUS. OPACIFICATION OF SEVERAL RIGHT MASTOID AIR CELLS WELL. 4. NONSPECIFIC 9.5 MM OVAL RADIOLUCENCY IN THE RIGHT PARIETAL BONE. FOLLOW-UP TOTAL BODY BONE SCAN SUGGESTED. JOB NUMBER: [id number] [facility]
--- NOTE | 2017-01-03 07:31 | RADIOLOGY REPORT ---
EXAM: CHEST, TWO VIEWS HISTORY: SMALL CELL LUNG CANCER. TECHNIQUE: PA and lateral views of the chest were obtained. Comparison: Two view chest 11/14/16. FINDINGS: The heart size is stable. The lungs again appear hyperinflated suggesting COPD. Some upward retraction of the left hilum as before. No definite acute infiltrate is seen and no pleural effusion or pneumothorax evident. Hypertrophic spurring in the spine. IMPRESSION: 1. HYPERINFLATION CONSISTENT WITH COPD BEFORE. 2. UPWARD RETRACTION OF THE LEFT HILUM BEFORE. 3. PROMINENT SPURRING IN THE SPINE AGAIN EVIDENT. JOB NUMBER: [id number] [facility]
[2017-01-03] MEDS ORDERED: METHYLPREDNISOLONE PF 125MG/VIAL IVP SCH (10:00)
[2017-01-03] MEDS ORDERED: PATIENT OWN MED: PO SCH (10:00)
[2017-01-03] MEDS: BROVANA 15 MCG/2 ML INH SCH ×2 (10:07→21:47)
--- NOTE | 2017-01-03 10:30 | History & Physical ---
History of Present Illness - Date of Service Date of Service for History & Physical: 01/03/17 - History of Present Illness Admitting Diagnosis: COPD exacerbation. Vertigo. [place]/vomiting History of Present Illness: 71 y/o female with CC dizziness, nausea and weakness admitted for COPD exacerbation and vertigo. Past medical history includes former smoker, asthma, COPD, PE, emphysema, lung cancer in remission since 2008, high cholesterol, obstructive bowel, hypothyroidism, osteoporosis, arthritis. Patient reports progressive problems with balance and memory problems for the past 2 months. She had not seen PCP for this. For the past 2 days had dizziness , weakness, nausea. Fell twice, was unwitnessed with patient report of LOC at the time. Wears home O2 continuously. One fall incident was associated with urine incontinence and significant weakness that prevented her from being able to change her clothes or get cleaned up for several hours. Denies recent fever, chills, dysuria, previous hx incontinence. Denies chest pain, palpitations. Denies any focal weakness or speech difficulty. She recently stopped steroids due to COPD, unsure if she had been taking antibiotics. 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 Has seen pulmonolgist in the past but not for many years, is unable to recall who she saw. Daughter is in process of getting her established in [place]. Reports PCP had ordered stress test in the past, unsure of when or what the results were. No known cardiac history except for high cholesterol. No known hx CVA or TIA. While in the ED VSS, SPO2 97% on 2L, was afebrile. CMP unremarkable. WBC normal with 86% neutrophils. Cardiac enzymes negative. INR 2.8. TSH 1.0. U/A with moderate blood and trace ketones. She was given a fluid bolus for clinical dehydration with improvement in dizziness. Ambulated to without issue. CXR- COPD, no active process. CT head- no acute intracranial hemorrhage or focal mass effect, generalized atrophy with chronic deep white matter changes, nonspecific 9.5mm oval lucency in the right parietal bone with total body bone scan recommended as outpatient. She was admitted for overnight observation for vertigo and exacerbation COPD. 01/03/17- resting in bed comfortably, + conversational dyspnea which she reports is baseline for her. Has remained afebrile, VSS. Denies B/B dysfunction or further bladder incontinence. Continue to feel weak and is concerned regarding her memory loss. PT has already evaluated and reporting concerns with impaired balance and weakness and right foot drop. PCP: Dr Johnston Travel Screening - Travel/Exposure Within Last 30 Days Have you traveled within the last 30 days?: No - Travel/Exposure Within Last Year Have you traveled outside the [place] in the last year?: No - Additonal Travel Details Have you been exposed to anyone with a communicable illness?: No - Travel Symptoms Symptom Screening: None Review of Systems Constitutional: Denies: Chills, Fever, Malaise, Night sweats Eyes: Denies: Eye discharge, Eye pain ENT: Denies: Congestion, Ear pain, Epistaxis Respiratory: Denies: Cough, Dyspnea Cardiovascular: Denies: Chest pain, Dyspnea on exertion Endocrine: Denies: Fatigue, Heat or cold intolerance Gastrointestinal: Reports: Nausea, Vomiting (x 1). Denies: Abdominal pain Genitourinary: Reports: Incontinence. Denies: Retention Musculoskeletal: Denies: Arthralgia, Back pain, Gout, Joint swelling Skin: Denies: Bruising, Change in color Neurological: Reports: Vertigo. Denies: Abnormal gait, Confusion, Headache, Numbness Psychiatric: Denies: Anxiety Hematological/Lymphatic: Reports: Blood Clots. 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, emphysema - CARDIOVASCULAR Hx Cardio Disorders: Yes Hx Hypertension: Yes Comment:: high cholesterol - NEURO Hx Neuro Disorders: No - GI Hx GI Disorders: No Hx Obstructive Bowel: Yes - Hx Genitourinary Disorders: No Hx Bladder Problem: Yes - ENDOCRINE Hx Endocrine Disorders: No Hx Diabetes: No Hx Thyroid Disease: Yes - MUSCULOSKELETAL Hx Musculoskeletal Disorders: Yes Hx Arthritis: Yes Hx Osteoporosis: Yes - PSYCH Hx Psych Problems: No - HEMATOLOGY/ONCOLOGY Hx Hematology/Oncology Disorders: Yes Hx Cancer: Yes (Lung) Hx Chemotherapy: Yes Hx Radiation Therapy: Yes Comment:: prophylactic radiation to brain Family Medical History Any Significant Family History?: Yes Hx Dementia: Grandparents Hx Depression: Mother Hx Heart Disease: Father, Mother, Brother/Sister Hx HTN: Brother/Sister Hx Resp Disorders: Mother H&P Meds/Allergies - Allergies Allergies: Allergies Allergy/AdvReac Type Severity Reaction Status Date / Time regadenoson [From Lexiscan] AdvReac HYPERSENSIT Verified 01/02/17 17:27 IVITY - Home Medications Home Medications Medication Instructions Recorded Confirmed Last Taken Albuterol Sulfate [Proair Hfa] 2 puff INH ASDIR 12/07/13 01/02/17 09/26/16 Brovana 150 mcg PO DAILY 12/07/13 01/02/17 09/26/16 Calcium Carbonate/Vitamin D3 1 tab PO DAILY 12/07/13 01/02/17 09/26/16 [Calcium 600 + Vit D Tablet] Tiotropium [place] [Spiriva] 1 puff INH DAILY 12/07/13 01/02/17 09/26/16 Atorvastatin Calcium 40 mg PO DAILY 10/13/14 01/02/17 09/26/16 Levothyroxine Sodium [Synthroid] 25 mcg PO DAILY 10/13/14 01/02/17 09/26/16 Ranitidine HCl [Zantac] 75 mg PO QHS PRN 10/13/14 01/02/17 09/26/16 Alendronate Sodium 1 tab PO WEEKLY 11/23/14 01/02/17 09/26/16 Citalopram Hydrobromide 20 mg PO DAILY 11/23/14 01/02/17 09/27/16 [Citalopram HBr] Warfarin Sodium [Coumadin] 4 mg PO DAILY 09/27/16 01/02/17 09/26/16 Acetaminophen 500 mg PO Q8H PRN 01/02/17 01/02/17 Unknown Albuterol Sulfate 0.083% [Neb] 3 ml NEB .EVERY 4-6 HOURS PRN 01/02/17 01/02/17 Unknown Baclofen 10 mg PO ASDIR 01/02/17 01/02/17 Unknown Solifenacin Succinate [Vesicare] 10 mg PO DAILY 01/02/17 01/02/17 Unknown Tramadol HCl [Ultram] 50 mg PO ASDIR 01/02/17 01/02/17 Unknown - Active Medications Active Medications: Current Medications Acetaminophen (Tylenol 500mg Tab) 1,000 mg PO Q6H PRN PRN Reason: PAIN/TEMP Albuterol Sulfate () 2.5 mg INH RESP.Q4H PRN PRN Reason: DIFFICULTY IN BREATHING Albuterol/Ipratropium (Duoneb) 3 ml INH RESP.Q4H.WA [facility] Last Admin: 01/03/17 10:06 Dose: 3 ml Atorvastatin Calcium (Lipitor) 40 mg PO QHS [facility] Last Admin: 01/02/17 23:50 Dose: 40 mg Citalopram Hydrobromide (Celexa) 20 mg PO DAILY ESTRELLA Diphenhydramine HCl (Benadryl Capsule) 50 mg PO QHS PRN PRN Reason: INSOMNIA Last Admin: 01/02/17 23:49 Dose: 50 mg Sodium Chloride () 500 mls @ 0 mls/hr IV .Q0M ESTRELLA PRN Reason: Wide Open Last Infusion: 01/02/17 13:34 Dose: Infused Sodium Chloride () 1,000 mls @ 100 mls/hr IV .Q10H PRN PRN Reason: LARGE VOLUME IV Levofloxacin/Dextrose (Levaquin 750mg Ivpb) 750 mg in 150 mls @ 125 mls/hr IVPB Q24H [facility] Stop: 01/07/17 17:01 Last Infusion: 01/02/17 19:30 Dose: Infused Levothyroxine Sodium (Synthroid) 25 mcg PO DAILYTHY [facility] Last Admin: 01/03/17 06:25 Dose: 25 mcg Methylprednisolone Sodium Succinate (Solu-Medrol) 24 mg IVP Q6HR [facility] Last Admin: 01/03/17 06:24 Dose: 24 mg Ondansetron HCl (Zofran) 4 mg IVP Q6H PRN PRN Reason: NAUSEA Patient Own Med: (Brovana 15 Mcg/2 Ml) 1 each INH BID [facility] Last Admin: 01/03/17 10:07 Dose: 1 each Physical Exam - Vital Signs Vital Signs: Vital Signs - Last 24 Hrs Temp Pulse Pulse Pulse Resp BP Pulse Ox 01/03/17 06:08 56 L 20 97 01/03/17 06:00 99.0 F 56 L 18 112/60 97 01/02/17 23:06 68 20 01/02/17 23:00 99.0 F 72 20 120/58 97 01/02/17 21:40 61 20 97 01/02/17 17:15 93 L 01/02/17 17:13 81 97 H 95 01/02/17 17:09 88 26 H 01/02/17 16:30 79 20 127/59 98 01/02/17 16:26 98.8 F 85 16 142/59 97 - General General Appearance: Alert, Oriented x3, Cooperative Limitations: No limitations - Head Head exam: Atraumatic, Normocephalic, Normal inspection Head exam detail: negative: Abrasion, Contusion, Huitron's sign, General tenderness, Hematoma, Laceration - Eye Eye exam: Normal appearance. negative: Conjunctival injection, Periorbital swelling, Periorbital tenderness, Scleral icterus - ENT ENT exam: Normal exam, Mucous membranes moist Ear exam: negative: Auricular hematoma, Auricular trauma Nasal Exam: negative: Active bleeding, Discharge, Dried blood, Foreign body Mouth exam: negative: Drooling, Laceration, Muffled voice, Tongue elevation - Neck Neck exam: Normal inspection. negative: Meningismus, Tenderness - Respiratory Respiratory exam: Decreased breath sounds, Respiratory distress (conversational) , Rhonchi, Wheezes, Other (multiphonic lung sounds throughout). negative: Stridor - Cardiovascular Cardiovascular Exam: Regular rate, Normal rhythm, Normal heart sounds - GI/Abdominal GI/Abdominal exam: Soft, Normal bowel sounds. negative: Rebound, Rigid, Tenderness - Rectal Rectal exam: Deferred - exam: Deferred - Extremities Extremities exam: negative: Calf tenderness, Pedal edema, Tenderness - Back Back exam: Denies: CVA tenderness (R), CVA tenderness (L), Rash noted - Neurological Neurological exam: Alert, CN II-XII intact, Oriented X3. negative: Motor sensory deficit - Psychiatric Psychiatric exam: Normal affect, Normal mood - Skin Skin exam: Normal color. negative: Abrasion Type of lesion: negative: abrasion Results - Labs Result Diagrams: 01/03/17 06:08 01/02/17 12:15 Labs Last 24 Hours: Laboratory Results - last 24 hr 01/03/17 01/03/17 06:08 06:08 WBC 6.6 RBC 3.61 L Hgb 10.2 L Hct 31.7 L MCV 87.8 MCH 28.2 MCHC 32.2 RDW 13.7 Plt Count 235 MPV 10.2 Neutrophils % 93.0 H Eosinophils % Not Reportable Basophils % Not Reportable Lymphocytes 6.0 L Monocytes 1.0 Platelet Estimate Normal RBC Morphology Normal PT 27.4 H INR 2.51 - Imaging and Cardiology CT scan - head Status: Report reviewed (o acute intracranial hemorrhage or focal mass effect, generalized atrophy with chronic deep white matter changes, nonspecific 9.5mm oval lucency in the right parietal bone with total body bone scan recommended as outpatient) VTE H&P Assessment - Risk for VTE Risk for VTE: Yes Risk Level: Moderate Risk Assessment Date: 01/03/17 Risk Assessment Time: 10:52 VTE Orders Placed or Will Be Placed: Yes Plan - Detailed Diagnosis and Plan (1) COPD exacerbation Current Visit: Yes Status: Acute Base Code: J44.1 - CHRONIC OBSTRUCTIVE PULMONARY DISEASE W (ACUTE) EXACERBATION Comment: 01/03/17- 71 y/o female admitted for 2 day history dizzniess, nausea, generalized weakness. ER work up unremarkable, WBC normal with exception of neutrophils 86% -> 93% this am. CXR, head CT negative for acute process. Was short of breath with ambulation in ED. Cardiac enzymes negative. BNP 807. D-Dimer 0.35. TSH 1.0. VS have remained stable. - urine sent for culture r/o UTI - COPD pathway initiated - Duo NEb q 4 hrs WA and albuterol q 2 hrs PRN - IV solumedrol 5mg/kg QID - Levaquin 500mg QD - PT/OT eval for weakness and falling - Carotid doppler and echo pending - Case management to perform MMSE and/or MOCA, PHQ-9 for cognitive eval - Family and patient concern with her returning home alone due to recent falls and concerns of memory impairment, completing ADLs. (2) Vertigo Current Visit: Yes Status: Acute Base Code: R42 - DIZZINESS AND GIDDINESS Comment: 01/03/17- clinically dehydrated upon arrival to ED. Significant improvement after fluid bolus - continue encouraging PO fluid intake - carotid doppler and echo (3) Nausea & vomiting Current Visit: Yes Status: Acute Qualifiers: Vomiting type: unspecified Vomiting Intractability: non-intractable Qualified Code(s): R11.2 - Nausea with vomiting, unspecified Base Code: R11.2 - NAUSEA WITH VOMITING, UNSPECIFIED Comment: 01/03/17- resolved (4) DVT prophylaxis Current Visit: Yes Status: Acute Base Code: [id number] - Comment: 01/03/17- on Coumadin therapy for hx biat PE, daily INR, pharmD to follow (5) DNR (do not resuscitate) Current Visit: Yes Status: Acute Base Code: Z66 - DO NOT RESUSCITATE Comment: 01/03/17 will remain DNR during this hospitalization Mini mental exam performed at bedside with no obvious cognitive deficits noted. Affect appropriate, STM relatively intact
[2017-01-03] MEDS: CITALOPRAM 20 MG TABLET PO SCH (10:43)
[2017-01-03 11:14] LABS: LDL CHOLESTEROL/MEASURED 92.3 mg/dL (0-100)
--- NOTE | 2017-01-03 12:53 | Rehab Evaluation ---
Patient Information - Patient Information Diagnosis: dizziness,nausea, generalized weakness Ordered Treatment: PT Evaluate and Treat Status: Initial Evaluation History: Detail (The patient present to ED on 01/02/17 with complaints of dizziness, nause and generalized weakness. The patient also had complaints of progressive memory problem over the past 2 months. 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, emphysema PMH - Cardiovascular Hx Cardiovascular Disorders Yes Hx Abnormal EKG No Hx Cardiac Catheterization No Hx Chest Pain No Hx Congestive Heart Failure No Hx Deep Vein Thrombosis No Hx Edema No Hx Heart Attack No Hx Hypertension Yes Hx Hypotension No Hx Irregular Heartbeat No Hx Palpitations No Hx Pacemaker/Defibrillator No Hx Vascular Disease No Comment: high cholesterol PMH - Neuro Hx Neurological Disorders No PMH - GI Hx Gastrointestinal Disorders No Hx Abdominal Pain No Hx Celiac Disease No Hx Crohn's Disease No Hx Diverticulitis No Hx Gastrointestinal Bleed No Hx Gastroesophageal Reflux No Hx Hepatitis/Jaundice No Hx Hiatal Hernia No Hx Irritable Bowel No Hx Liver Disease No Hx Nausea/Vomiting No Hx Obstructive Bowel Yes Hx Pancreatitis No Hx Rectal Bleeding No Hx Ulcer No Hx Weight Loss/Weight Gain No PMH - Hx Genitourinary Disorders No Patient No Hx Bladder Problem Yes Hx Dialysis No Hx Kidney Stones No Hx Renal Disease No Hx Urinary Tract Infection No PMH - Endocrine Hx Endocrine Disorders No Hx Diabetes No Hx Thyroid Disease Yes PMH - Musculoskeletal Hx Musculoskeletal Disorders Yes Hx Arthritis Yes Hx Back Injury No Hx Fibromyalgia No Hx Gout No Hx Musculoskeletal Disease No Hx Osteoporosis Yes PMH - Psych Hx Psychiatric Problems No Hx Anxiety Yes Hx Behavior Problems No Hx Depression Yes Hx Emotional Abuse No Hx Sexual Abuse No Hx Suicide Attempt No PMH - Hematology/Oncology Hx Hematology/Oncology Yes Disorders Hx Anemia No Hx Blood Disorders No Hx Bruising No Hx Cancer Yes: Lung Hx Chemotherapy Yes Hx Radiation Therapy Yes Hx Clotting Problems Yes: PE Hx Sickle Cell Disease No Hx Unexplained Bleeding No Hx Blood Transfusion Reaction No Comment: prophylactic radiation to brain Premorbid Status: Detail (The patient reports she was independent with ambulation without device, completing all housework and ADL's independently.) Social History: Detail (The patient lives alone in a one story home with 3 steps with to a deck and one additional step to enter the house. The stairs on the deck have one railing. The patient's bathroom is a regular tub/shower combination and a standard toilet. The patient's bathroom does not have grab bars. The patient reports she takes a shower on her good days. The patient has no medical equipment.) Precautions: [place], Fall - Time With Patient Total Time Spent With Patient (Min): 35 Treatment Procedures: Detail (Initial Evaluation.) Subjective Information - Subjective Information Per Patient (The patient denies pain but states she is anxious over recent memory loss and difficulty in completing her financial tasks. The patient reports she has fallen recently and does not recall why she fell.) Objective Data - Mental Status Patient Orientation: Oriented x3 (The patient was oriented and followed simple commands.) - Visual Perception Appears within normal limits for therapeutic activities - ROM Not within normal limits (The patient had limited L LE dorsiflexion to aproximately -25 degrees, (limitation is from an old injury per her report). All other LE AROM is WFL. Refer to OT evaluation for UE AROM.) - Strength/Tone Not within normal limits (The patient's L LE strength is 0/5 in dorsiflexors ( no active dorsiflexion is noted), plantar flexors 3+/5, hamstrings 4-/5, quadriceps 4/5, hip flexors 4-/5, hip abductors and adductors 4/5. The patient' s R LE strength throughout is generally 4 to 4+/5. Refer to OT note for UE strength.) - Bed Mobility Independent (The patient was independent with supine to and from sit transfer.) - Transfers Independent (The patient was independent/supervision with sit to stand transfer. Supervision due to balance deficits.) - Balance Balance Sitting: Good Balance Standing: Poor (The patient scored 17/28 using the Tinetti Balance Assessment Tool which is in the high risk for fallig category. The patient exhibited increased postural sway with Romberg position and decreased posterior equilibrium responses.) - Gait Detail (The patient ambulated without device with CG of 1 for safety and 2 L of O2 a distance of 22 feet x 1. The patient's gait pattern was characterized by L foot drop, decreased heel strike L LE, decreased LE push off and decreased stride length on the left. The patient ambulated with slow careful steps bilaterally.) Therapy Assessment - Therapy Assessment Detail (The patient exhibits decreased balance, decreased LE strength, contact gaurding with ambulation due to balance deficits and numerous gait deviations due to L foot drop and L ankle ROM deficits. The patient refused to use an assistive device when PT recommended a walker. The patient was also reluctant to participate in ongoing PT stating " all they had me do before in PT was ride a bike and that did not help." PT emphasized the importance of ongoing rehab services to improve balance and safety of gait. Feel the patient is a good candidate for Home Health OT and PT or subacute rehabilitation to improve balance and strength, improve safety with mobility and OT to assess cognitive deficits and ADL safety as well as equipment needs.) Problem List - Problem List Physical Therapy Problem List: Detail (1)Decreased balance as measured by the Tinetti Balance Assessment Tool. 2) Decreased LE strength. 3) Numerous gait deviations due to L foot drop and balance deficits. 4) L ankle ROM decifits 5) CG /supervision with mobility 6) Numerous recent falls) Goals - Goals Physical Therapy Goals: 1) Improve the patient's balance as measured using Tinetti Balance Tool by 3 to 4 points. 2) The patient will ambulate independently with appropriate assistive device community distances. 3) Increase LE strength 1/3 muscle grade. 4) Improve L dorsiflexion by 5 to 10 degrees Prognosis - Prognosis Good Plan - Plan Physical Therapy Plan: PT 1 to 2 times a day M- until discharge from [facility] for gait training, balance and LE strengthening exercises.
--- NOTE | 2017-01-03 15:33 | Rehab Evaluation ---
Patient Information - Patient Information Diagnosis: dizziness,nausea, generalized weakness Ordered Treatment: OT Evaluate and Treat Status: Initial Evaluation History: Detail (The patient presented to ED on 01/02/17 with complaints of dizziness, nausea and generalized weakness. The patient also had complaints of progressive memory problem over the past 2 months. 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, emphysema PMH - Cardiovascular Hx Cardiovascular Disorders Yes Hx Abnormal EKG No Hx Cardiac Catheterization No Hx Chest Pain No Hx Congestive Heart Failure No Hx Deep Vein Thrombosis No Hx Edema No Hx Heart Attack No Hx Hypertension Yes Hx Hypotension No Hx Irregular Heartbeat No Hx Palpitations No Hx Pacemaker/Defibrillator No Hx Vascular Disease No Comment: high cholesterol PMH - Neuro Hx Neurological Disorders No PMH - GI Hx Gastrointestinal Disorders No Hx Abdominal Pain No Hx Celiac Disease No Hx Crohn's Disease No Hx Diverticulitis No Hx Gastrointestinal Bleed No Hx Gastroesophageal Reflux No Hx Hepatitis/Jaundice No Hx Hiatal Hernia No Hx Irritable Bowel No Hx Liver Disease No Hx Nausea/Vomiting No Hx Obstructive Bowel Yes Hx Pancreatitis No Hx Rectal Bleeding No Hx Ulcer No Hx Weight Loss/Weight Gain No PMH - Hx Genitourinary Disorders No Patient No Hx Bladder Problem Yes Hx Dialysis No Hx Kidney Stones No Hx Renal Disease No Hx Urinary Tract Infection No PMH - Endocrine Hx Endocrine Disorders No Hx Diabetes No Hx Thyroid Disease Yes PMH - Musculoskeletal Hx Musculoskeletal Disorders Yes Hx Arthritis Yes Hx Back Injury No Hx Fibromyalgia No Hx Gout No Hx Musculoskeletal Disease No Hx Osteoporosis Yes PMH - Psych Hx Psychiatric Problems No Hx Anxiety Yes Hx Behavior Problems No Hx Depression Yes Hx Emotional Abuse No Hx Sexual Abuse No Hx Suicide Attempt No PMH - Hematology/Oncology Hx Hematology/Oncology Yes Disorders Hx Anemia No Hx Blood Disorders No Hx Bruising No Hx Cancer Yes: Lung Hx Chemotherapy Yes Hx Radiation Therapy Yes Hx Clotting Problems Yes: PE Hx Sickle Cell Disease No Hx Unexplained Bleeding No Hx Blood Transfusion Reaction No Comment: prophylactic radiation to brain Premorbid Status: Detail (The patient reports she was independent with ambulation without device, completing all housework and ADL's independently.) Social History: Detail (The patient lives alone in a one story home with 3 steps from a deck and one additional step to enter the house. The stairs on the deck have one railing. The patient's bathroom is a regular tub/shower combination with curtain enclosure and fixed shower head. Pt has a standard toilet. The patient's bathroom does not have grab bars and she's been using towel rack to hold onto while in shower. The patient reports she takes a shower on her "good days." Other then the occassional "good day" pt washes hair in kitchen sink and sponge bathes. She would like to shower but is fearful. She has no tub bench. The patient has no medical equipment. Pt has supportive daughter and granddaughter but both do not live close. Daughter lives in [place] and granddaughter lives in [place].) Precautions: [place], Fall - Time With Patient Total Time Spent With Patient (Min): 30 (PT present during eval) Treatment Procedures: Detail (Eval low OT) Objective Data - Mental Status Patient Orientation: Oriented x3 (Pt did think she was 69 and was suprised to learn she was 71 years old.) - Visual Perception Appears within normal limits for therapeutic activities - ROM Within normal limits (BUE's. Pt does report that LUE is painful when initiating movements but able to achieve WNL ROM.) - Strength/Tone Within normal limits (Pt is grossly 4 to 4+/5 BUE shld flex, ext, abd, add; elbow flex and ext.) - Coordination Appears within normal limits for therapeutic activities - Bed Mobility Independent - Balance Balance Sitting: Good - Sensation Intact - ADL's/IADL's Detail (Pt reports she was Ind w/ all ADLs [employer]. She was ind. w/ grocery shopping and driving although she does not drive at night. Laundry is on the first floor. Pt has portable O2 tank and is currently on 2L O2. Pt would really like to shower but is practicing unsafe techniques by using towel rack for support in shower. She amb w/in room without device. Up with nsg to BR.) Therapy Assessment - Therapy Assessment Detail (Feel Pt would benefit from further OT services to address decreased safety at home with showering. She would benefit from tub bench, hand held shower head, and grab bars in shower for increased safety while showering. Pt needs further education on OT equipment and home modifications. Further OT at sub acute rehab or home OT recommended.) Patient Education - Patient Education Barriers To Learning: None Problem List - Problem List Physical Therapy Problem List: Detail (1)Decreased balance as measured by the Tinetti Balance Assessment Tool. 2) Decreased LE strength. 3) Numerous gait deviations due to L foot drop and balance deficits. 4) L ankle ROM decifits 5) CG /supervision with mobility 6) Numerous recent falls) Occupational Therapy Problem List: Detail (1. Decreased knowledge of home modifications and equipment 2. Decreased ind. with ADLs such as showering 3. Decreased balance and safety with showering) Goals - Goals Physical Therapy Goals: 1) Improve the patient's balance as measured using Tinetti Balance Tool by 3 to 4 points. 2) The patient will ambulate independently with appropriate assistive device community distances. 3) Increase LE strength 1/3 muscle grade. 4) Improve L dorsiflexion by 5 to 10 degrees Occupational Therapy Goals: 1. Pt to be ind w/ showering. 2. Pt to verbalize 2 home modifications to increase safety with showering Prognosis - Prognosis Good Plan - Plan Physical Therapy Plan: PT 1 to 2 times a day M-F until discharge from [facility] for gait training, balance and LE strengthening exercises. Occupational Therapy Plan: Recommend sub acute rehab or home OT. OT to treat 2- 4x a week M-F while pt remains at [facility] for equipment education and BUE strengthening ex's.
--- NOTE | 2017-01-03 16:00 | Rehab Evaluation ---
Patient Information - Patient Information Diagnosis: dizziness,nausea, generalized weakness Ordered Treatment: OT Evaluate and Treat Status: Initial Evaluation History: Detail (The patient presented to ED on 01/02/17 with complaints of dizziness, nausea and generalized weakness. The patient also had complaints of progressive memory problem over the past 2 months. 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, emphysema PMH - Cardiovascular Hx Cardiovascular Disorders Yes Hx Abnormal EKG No Hx Cardiac Catheterization No Hx Chest Pain No Hx Congestive Heart Failure No Hx Deep Vein Thrombosis No Hx Edema No Hx Heart Attack No Hx Hypertension Yes Hx Hypotension No Hx Irregular Heartbeat No Hx Palpitations No Hx Pacemaker/Defibrillator No Hx Vascular Disease No Comment: high cholesterol PMH - Neuro Hx Neurological Disorders No PMH - GI Hx Gastrointestinal Disorders No Hx Abdominal Pain No Hx Celiac Disease No Hx Crohn's Disease No Hx Diverticulitis No Hx Gastrointestinal Bleed No Hx Gastroesophageal Reflux No Hx Hepatitis/Jaundice No Hx Hiatal Hernia No Hx Irritable Bowel No Hx Liver Disease No Hx Nausea/Vomiting No Hx Obstructive Bowel Yes Hx Pancreatitis No Hx Rectal Bleeding No Hx Ulcer No Hx Weight Loss/Weight Gain No PMH - Hx Genitourinary Disorders No Patient No Hx Bladder Problem Yes Hx Dialysis No Hx Kidney Stones No Hx Renal Disease No Hx Urinary Tract Infection No PMH - Endocrine Hx Endocrine Disorders No Hx Diabetes No Hx Thyroid Disease Yes PMH - Musculoskeletal Hx Musculoskeletal Disorders Yes Hx Arthritis Yes Hx Back Injury No Hx Fibromyalgia No Hx Gout No Hx Musculoskeletal Disease No Hx Osteoporosis Yes PMH - Psych Hx Psychiatric Problems No Hx Anxiety Yes Hx Behavior Problems No Hx Depression Yes Hx Emotional Abuse No Hx Sexual Abuse No Hx Suicide Attempt No PMH - Hematology/Oncology Hx Hematology/Oncology Yes Disorders Hx Anemia No Hx Blood Disorders No Hx Bruising No Hx Cancer Yes: Lung Hx Chemotherapy Yes Hx Radiation Therapy Yes Hx Clotting Problems Yes: PE Hx Sickle Cell Disease No Hx Unexplained Bleeding No Hx Blood Transfusion Reaction No Comment: prophylactic radiation to brain Premorbid Status: Detail (The patient reports she was independent with ambulation without device, completing all housework and ADL's independently.) Social History: Detail (The patient lives alone in a one story home with 3 steps from a deck and one additional step to enter the house. The stairs on the deck have one railing. The patient's bathroom is a regular tub/shower combination with curtain enclosure and fixed shower head. Pt has a standard toilet. The patient's bathroom does not have grab bars and she's been using towel rack to hold onto while in shower. The patient reports she takes a shower on her "good days." Other then the occassional "good day" pt washes hair in kitchen sink and sponge bathes. She would like to shower but is fearful. She has no tub bench. The patient has no medical equipment. Pt has supportive daughter and granddaughter but both do not live close. Daughter lives in [place] and granddaughter lives in [place].) Precautions: [place], Fall - Time With Patient Total Time Spent With Patient (Min): 30 Treatment Procedures: Detail (OT Eval low) Objective Data - Mental Status Patient Orientation: Oriented x3 - Visual Perception Appears within normal limits for therapeutic activities - ROM Within normal limits (BUE's. Pt does report that LUE is painful when initiating movements but able to achieve WNL ROM.) - Strength/Tone Within normal limits (Pt is grossly 4 to 4+/5 BUE shld flex, ext, abd, add; elbow flex and ext.) - Coordination Appears within normal limits for therapeutic activities - Bed Mobility Independent - Balance Balance Sitting: Good - Sensation Intact - ADL's/IADL's Detail (Pt reports she was Ind w/ all ADLs [employer]. She was ind. w/ grocery shopping and driving although she does not drive at night. Laundry is on the first floor. Pt has portable O2 tank and is currently on 2L O2. Pt would really like to shower but is practicing unsafe techniques by using towel rack for support in shower. She amb w/in room without device. Up with nsg to BR.) Therapy Assessment - Therapy Assessment Detail (Feel Pt would benefit from further OT services to address decreased safety at home with showering. She would benefit from tub bench, hand held shower head, and grab bars in shower for increased safety while showering. Pt needs further education on OT equipment and home modifications. Further OT at sub acute rehab or home OT recommended.)) Problem List - Problem List Physical Therapy Problem List: Detail (1)Decreased balance as measured by the Tinetti Balance Assessment Tool. 2) Decreased LE strength. 3) Numerous gait deviations due to L foot drop and balance deficits. 4) L ankle ROM decifits 5) CG /supervision with mobility 6) Numerous recent falls) Occupational Therapy Problem List: Detail (1. Decreased knowledge of home modifications and equipment 2. Decreased ind. with ADLs such as showering 3. Decreased balance and safety with showering) Goals - Goals Physical Therapy Goals: 1) Improve the patient's balance as measured using Tinetti Balance Tool by 3 to 4 points. 2) The patient will ambulate independently with appropriate assistive device community distances. 3) Increase LE strength 1/3 muscle grade. 4) Improve L dorsiflexion by 5 to 10 degrees Occupational Therapy Goals: 1. Pt to be ind w/ showering. 2. Pt to verbalize 2 home modifications to increase safety with showering Prognosis - Prognosis Good Plan - Plan Physical Therapy Plan: PT 1 to 2 times a day M-F until discharge from [facility] for gait training, balance and LE strengthening exercises. Occupational Therapy Plan: Recommend sub acute rehab or home OT. OT to treat 2- 4x a week M-F while pt remains at [facility] for equipment education and BUE strengthening ex's.
[2017-01-03] MEDS: LEVOFLOXACIN/D5W 750 MG/150 ML BAG IVPB SCH (18:24)
[2017-01-03] MEDS: ATORVASTATIN 20 MG TABLET PO SCH (21:38)
[2017-01-03] MEDS: DIPHENHYDRAMINE HCL 25 MG CAPSULE PO PRN (22:20)
[2017-01-04] MEDS: METHYLPREDNISOLONE SOD 40MG/VIAL IVP SCH ×3 (00:17→21:18)
[2017-01-04] MEDS: IPRATROPIUM/ALBUTEROL (0.5MG/3MG) NEB INH SCH ×5 (05:50→21:50)
[2017-01-04] MEDS: LEVOTHYROXINE SODIUM 25 MCG TABLET PO SCH (06:13)
[2017-01-04 06:31] LABS: HEMATOCRIT 33.6 % (35.0-47.0); HEMOGLOBIN 10.9 gm/dl (11.6-16.0); MEAN CELL VOLUME 88.7 fl (81-97); MEAN CORPUSCULAR HGB CONC 32.4 g/dl (32-36); MEAN PLATELET VOLUME 10.4 fl (7.4-10.4); PLATELET COUNT 262 K/uL (130-400); RED BLOOD COUNT 3.79 M/uL (3.80-5.40); RED CELL DISTRIBUTION WIDTH 14.1 % (11.5-14.5); WHITE BLOOD COUNT W/O DIFF 14.1 K/uL (4.2-12.2)
[2017-01-04 06:39] LABS: MEAN CORPUSCULAR HEMOGLOBIN 28.7 pg (27-33); PROTHROMBIN TIME (PATIENT) 32.8 SECONDS (9.5-12.1)
[2017-01-04 06:41] LABS: ALB/GLOB RATIO 1.2 (1.1-1.8); ALBUMIN 3.5 gm/dL (3.5-5.0); ALKALINE PHOSPHATASE 55 U/L (38-126); ALT/SGPT 31 U/L (9-52); ANION GAP 6.5 (7-16); AST/SGOT 21 U/L (14-36); BILIRUBIN,TOTAL 0.47 mg/dL (0.2-1.3); BLOOD UREA NITROGEN 12 mg/dL (7-17); CARBON DIOXIDE 23.5 mmol/L (22-30); CREATININE 0.7 mg/dL (0.52-1.04); EST GLOMERULAR FILTRATION RATE > 60 ml/min; GLUCOSE,RANDOM 132 mg/dL (70-110); TOTAL PROTEIN 6.5 gm/dL (6.3-8.2)
[2017-01-04 06:50] LABS: HYPOCHROMIA 1+; PLATELET ESTIMATE NORMAL (NORMAL)
[2017-01-04] MEDS: CITALOPRAM 20 MG TABLET PO SCH (09:02)
[2017-01-04] MEDS: BROVANA 15 MCG/2 ML INH SCH ×2 (09:33→21:50)
[2017-01-04] MEDS: VESICARE PO SCH (11:05)
--- NOTE | 2017-01-04 11:07 | Physician Progress Note ---
Subjective - Date Date of Physician Progress Note: 01/04/17 - Subjective Subjective Comment: No new nursing concerns. Patient continues to report balance impairment, feels weak. Respiratory status at baseline per patient. Has remained afebile. Denies dysuria, chills. Tolerating antibiotics without issue. No incontinence episodes. Family meeting with Nohemi Jiang, and patient who agree her discharging home alone at this point is unsafe due to balance issues and acute onset of falling with weakness prior to admit. Daughter reports monthly visits to ED for pumonary issues for the past 3 months with a notable decline in her overall health since September of this year. Objective - Vital Signs Vital Signs: Vital Signs - Last 24 Hrs Temp Pulse Pulse Pulse Resp BP Pulse Ox 01/04/17 09:34 83 17 95 01/04/17 06:00 98.8 F 76 20 115/58 98 01/04/17 05:50 67 20 99 01/03/17 21:45 93 H 22 97 01/03/17 21:30 99.5 F 78 24 115/58 98 01/03/17 21:00 78 22 01/03/17 18:13 74 21 99 01/03/17 14:29 75 17 99 01/03/17 13:14 71 105/50 97 - General General Appearance: Alert, Oriented x3, Cooperative Limitations: No limitations - Head Head exam: Atraumatic, Normocephalic, Normal inspection Head exam detail: negative: Abrasion, Contusion, Huitron's sign, General tenderness, Hematoma, Laceration - Eye Eye exam: Normal appearance. negative: Conjunctival injection, Periorbital swelling, Periorbital tenderness, Scleral icterus - ENT ENT exam: Normal exam, Mucous membranes moist Ear exam: negative: Auricular hematoma, Auricular trauma Nasal Exam: negative: Active bleeding, Discharge, Dried blood, Foreign body Mouth exam: negative: Drooling, Laceration, Muffled voice, Tongue elevation - Neck Neck exam: Normal inspection. negative: Meningismus, Tenderness - Respiratory Respiratory exam: Decreased breath sounds, Respiratory distress (conversational) , Rhonchi, Wheezes, Other (multiphonic lung sounds throughout). negative: Stridor - Cardiovascular Cardiovascular Exam: Regular rate, Normal rhythm, Normal heart sounds - GI/Abdominal GI/Abdominal exam: Soft, Normal bowel sounds. negative: Rebound, Rigid, Tenderness - Rectal Rectal exam: Deferred - exam: Deferred - Extremities Extremities exam: Other (left foot drop). negative: Calf tenderness, Pedal edema, Tenderness - Back Back exam: Denies: CVA tenderness (R), CVA tenderness (L), Rash noted - Neurological Neurological exam: Alert, CN II-XII intact, Oriented X3. negative: Motor sensory deficit - Psychiatric Psychiatric exam: Normal affect, Normal mood - Skin Skin exam: Normal color. negative: Abrasion Type of lesion: negative: abrasion Assessment and Plan - Assessment and Plan (1) COPD exacerbation Current Visit: Yes Status: Acute Base Code: J44.1 - CHRONIC OBSTRUCTIVE PULMONARY DISEASE W (ACUTE) EXACERBATION Comment: 01/04/17- 71 y/o female admitted for 2 day history dizzniess, nausea, generalized weakness. ER work up unremarkable, WBC normal with exception of neutrophils 86% -> 93% this am. CXR, head CT negative for acute process. Was short of breath with ambulation in ED. Cardiac enzymes negative. BNP 807. D-Dimer 0.35. TSH 1.0. VS have remained stable. Likely etiology infectious vs. progessive COPD with overall decline in health and increasing frequency of ER visits for pulmonary issues over the past 3 months - urine sent for culture r/o UTI (pending) - COPD pathway initiated - Duo NEb q 4 hrs WA and albuterol q 2 hrs PRN - IV solumedrol 5mg/kg QID- will initiate wean. 24mg BID x 2 days, then QD x 2 days, then DC. Patient reports intolerance of oral steroids - Levaquin 500mg QD- will transition to oral for remainder of course - PT/OT eval for weakness and falling - Carotid doppler negative for significant stenosis bilat - echo complete with results pending - Family and patient concern with her returning home alone due to recent falls and concerns of memory impairment, completing ADLs. - will benefit from continue PT/OT towards goal of a safe discharge (2) Vertigo Current Visit: Yes Status: Acute Base Code: R42 - DIZZINESS AND GIDDINESS Comment: 01/04/17- clinically dehydrated upon arrival to ED. Significant improvement after fluid bolus. No further complaint - continue encouraging PO fluid intake - carotid doppler and echo (3) Nausea & vomiting Current Visit: Yes Status: Acute Qualifiers: Vomiting type: unspecified Vomiting Intractability: non-intractable Qualified Code(s): R11.2 - Nausea with vomiting, unspecified Base Code: R11.2 - NAUSEA WITH VOMITING, UNSPECIFIED Comment: 01/03/17- resolved (4) Depression Current Visit: Yes Status: Acute Base Code: F32.9 - MAJOR DEPRESSIVE DISORDER, SINGLE EPISODE, UNSPECIFIED Comment: 01/04/19- PHQ-9 complete 01/03, results . Will benefit from increase Celexa dose as soon as Levaquin course is complete as potential QT interval prologation with concomittent use (5) DVT prophylaxis Current Visit: Yes Status: Acute Base Code: [id number] - Comment: 01/04/17- on Coumadin therapy for hx biat PE, daily INR, pharmD to follow (6) DNR (do not resuscitate) Current Visit: Yes Status: Acute Base Code: Z66 - DO NOT RESUSCITATE Comment: 01/04/17 will remain DNR during this hospitalization Mini mental exam performed at bedside with no obvious cognitive deficits noted. Affect appropriate, STM relatively intact Results - Labs Result Diagrams: 01/04/17 06:15 01/04/17 06:15 Labs Last 24 Hours: Laboratory Results - last 24 hr 01/03/17 01/04/17 01/04/17 06:05 06:15 06:15 WBC 14.1 H RBC 3.79 L Hgb 10.9 L Hct 33.6 L MCV 88.7 MCH 28.7 MCHC 32.4 RDW 14.1 Plt Count 262 MPV 10.4 Neutrophils % 95.0 H Band Neutrophils % 2.0 Eosinophils % Not Reportable Basophils % Not Reportable Lymphocytes 2.0 L Monocytes 1.0 Platelet Estimate Normal Hypochromasia 1+ PT 32.8 H INR 3.00 Sodium Potassium Chloride Carbon Dioxide Anion Gap BUN Creatinine Estimated GFR Random Glucose Calcium Total Bilirubin AST ALT Alkaline Phosphatase Total Protein Albumin Globulin Albumin/Globulin Ratio Triglycerides 57 Cholesterol 176 LDL Cholesterol Measurd 92.3 VLDL Cholesterol 11 HDL Cholesterol 56 01/04/17 06:15 WBC RBC Hgb Hct MCV MCH MCHC RDW Plt Count MPV Neutrophils % Band Neutrophils % Eosinophils % Basophils % Lymphocytes Monocytes Platelet Estimate Hypochromasia PT INR Sodium 138 Potassium 3.9 Chloride 108 H Carbon Dioxide 23.5 Anion Gap 6.5 L BUN 12 Creatinine 0.7 Estimated GFR > 60 Random Glucose 132 H Calcium 8.5 Total Bilirubin 0.47 AST 21 ALT 31 Alkaline Phosphatase 55 Total Protein 6.5 Albumin 3.5 Globulin 3.0 Albumin/Globulin Ratio 1.2 Triglycerides Cholesterol LDL Cholesterol Measurd VLDL Cholesterol HDL Cholesterol DVT/PE Assessment - Risk for VTE Risk for VTE: No Risk Level: Moderate Risk Assessment Date: 01/03/17 Risk Assessment Time: 10:52 VTE Orders Placed or Will Be Placed: Yes - Active Medicaitons Current Medications: Current Medications Acetaminophen (Tylenol 500mg Tab) 1,000 mg PO Q6H PRN PRN Reason: PAIN/TEMP Albuterol Sulfate () 2.5 mg INH RESP.Q4H PRN PRN Reason: DIFFICULTY IN BREATHING Albuterol/Ipratropium (Duoneb) 3 ml INH RESP.Q4H.[facility] Last Admin: 01/04/17 09:32 Dose: 3 ml Atorvastatin Calcium (Lipitor) 40 mg PO QHS [facility] Last Admin: 01/03/17 21:38 Dose: 40 mg Citalopram Hydrobromide (Celexa) 20 mg PO DAILY [facility] Last Admin: 01/04/17 09:02 Dose: 20 mg Diphenhydramine HCl (Benadryl Capsule) 50 mg PO QHS PRN PRN Reason: INSOMNIA Last Admin: 01/03/17 22:20 Dose: 50 mg Sodium Chloride () 500 mls @ 0 mls/hr IV .Q0M [facility] PRN Reason: Wide Open Last Infusion: 01/02/17 13:34 Dose: Infused Levofloxacin/Dextrose (Levaquin 750mg Ivpb) 750 mg in 150 mls @ 125 mls/hr IVPB Q24H [facility] Stop: 01/07/17 17:01 Last Infusion: 01/03/17 20:17 Dose: Infused Levothyroxine Sodium (Synthroid) 25 mcg PO DAILYTHY [facility] Last Admin: 01/04/17 06:13 Dose: 25 mcg Methylprednisolone Sodium Succinate (Solu-Medrol) 24 mg IVP Q6HR [facility] Last Admin: 01/04/17 06:13 Dose: 24 mg Non-Formulary (Vesicare) 10 PO DAILY [facility] Ondansetron HCl (Zofran) 4 mg IVP Q6H PRN PRN Reason: NAUSEA Patient Own Med: (Brovana 15 Mcg/2 Ml) 1 each INH BID [facility] Last Admin: 01/04/17 09:33 Dose: 1 each AMI Plan - Labs Result Diagrams: 01/04/17 06:15 01/04/17 06:15
[2017-01-04] MEDS: ATORVASTATIN 20 MG TABLET PO SCH (21:18)
[2017-01-04] MEDS: DIPHENHYDRAMINE HCL 25 MG CAPSULE PO PRN (21:46)
[2017-01-05] MEDS: IPRATROPIUM/ALBUTEROL (0.5MG/3MG) NEB INH SCH ×5 (06:00→22:23)
[2017-01-05] MEDS: LEVOFLOXACIN 500 MG TABLET PO SCH (06:10)
[2017-01-05] MEDS: LEVOTHYROXINE SODIUM 25 MCG TABLET PO SCH (06:10)
[2017-01-05 06:18] LABS: INR 2.5; PROTHROMBIN TIME (PATIENT) 27.2 SECONDS (9.5-12.1)
[2017-01-05] MEDS: VESICARE PO SCH (09:38)
[2017-01-05] MEDS: METHYLPREDNISOLONE SOD 40MG/VIAL IVP SCH ×2 (09:40→21:36)
[2017-01-05] MEDS: CITALOPRAM 20 MG TABLET PO SCH ×2 (09:42→17:26)
[2017-01-05] MEDS: BROVANA 15 MCG/2 ML INH SCH ×2 (09:53→22:23)
--- NOTE | 2017-01-05 15:28 | Physician Progress Note ---
Subjective - Date Date of Physician Progress Note: 01/05/17 - Subjective Subjective Comment: No new nursing concerns. Patient did have a shower today. Balance still a concern Objective - Vital Signs Vital Signs: Vital Signs - Last 24 Hrs Temp Pulse Pulse Pulse Resp BP Pulse Ox 01/05/17 14:29 95 01/05/17 14:00 91 H 21 93 L 01/05/17 13:13 98 F 96 H 18 139/71 97 01/05/17 09:55 91 H 19 97 01/05/17 06:00 98.5 F 79 75 18 124/78 97 01/04/17 21:50 77 22 96 01/04/17 21:39 98.4 F 80 18 136/67 97 01/04/17 21:00 80 18 01/04/17 17:44 87 17 95 - General General Appearance: Alert, Oriented x3, Cooperative Limitations: No limitations - Head Head exam: Atraumatic, Normocephalic, Normal inspection Head exam detail: negative: Abrasion, Contusion, Huitron's sign, General tenderness, Hematoma, Laceration - Eye Eye exam: Normal appearance. negative: Conjunctival injection, Periorbital swelling, Periorbital tenderness, Scleral icterus - ENT ENT exam: Normal exam, Mucous membranes moist Ear exam: negative: Auricular hematoma, Auricular trauma Nasal Exam: negative: Active bleeding, Discharge, Dried blood, Foreign body Mouth exam: negative: Drooling, Laceration, Muffled voice, Tongue elevation - Neck Neck exam: Normal inspection. negative: Meningismus, Tenderness - Respiratory Respiratory exam: Decreased breath sounds, Respiratory distress (conversational) , Rhonchi, Wheezes, Other (multiphonic lung sounds throughout). negative: Stridor - Cardiovascular Cardiovascular Exam: Regular rate, Normal rhythm, Normal heart sounds - GI/Abdominal GI/Abdominal exam: Soft, Normal bowel sounds. negative: Rebound, Rigid, Tenderness - Rectal Rectal exam: Deferred - exam: Deferred - Extremities Extremities exam: Other (left foot drop). negative: Calf tenderness, Pedal edema, Tenderness - Back Back exam: Denies: CVA tenderness (R), CVA tenderness (L), Rash noted - Neurological Neurological exam: Alert, CN II-XII intact, Oriented X3. negative: Motor sensory deficit - Psychiatric Psychiatric exam: Normal affect, Normal mood - Skin Skin exam: Normal color. negative: Abrasion Type of lesion: negative: abrasion Assessment and Plan - Assessment and Plan (1) COPD exacerbation Current Visit: Yes Status: Acute Base Code: J44.1 - CHRONIC OBSTRUCTIVE PULMONARY DISEASE W (ACUTE) EXACERBATION Comment: - 71 y/o female admitted for 2 day history dizzniess, nausea, generalized weakness. ER work up unremarkable, WBC normal with exception of neutrophils 86% -> 93% this am. CXR, head CT negative for acute process. Was short of breath with ambulation in ED. Cardiac enzymes negative. BNP 807. D-Dimer 0.35. TSH 1.0. VS have remained stable. Likely etiology infectious vs. progessive COPD with overall decline in health and increasing frequency of ER visits for pulmonary issues over the past 3 months - urine sent for culture r/o UTI (pending) - COPD pathway initiated - Duo NEb q 4 hrs WA and albuterol q 2 hrs PRN - IV solumedrol 5mg/kg QID- will initiate wean. 24mg BID x 2 days, then QD x 2 days, then DC. Patient reports intolerance of oral steroids - Levaquin 500mg QD- will transition to oral for remainder of course - PT/OT eval for weakness and falling - Carotid doppler negative for significant stenosis bilat - echo complete with results pending - Family and patient concern with her returning home alone due to recent falls and concerns of memory impairment, completing ADLs. - will benefit from continue PT/OT towards goal of a safe discharge (2) Vertigo Current Visit: Yes Status: Acute Base Code: R42 - DIZZINESS AND GIDDINESS Comment: 01/05/17- clinically dehydrated upon arrival to ED. Significant improvement after fluid bolus. No further complaint - continue encouraging PO fluid intake - carotid doppler and echo (3) Nausea & vomiting Current Visit: Yes Status: Acute Qualifiers: Vomiting type: unspecified Vomiting Intractability: non-intractable Qualified Code(s): R11.2 - Nausea with vomiting, unspecified Base Code: R11.2 - NAUSEA WITH VOMITING, UNSPECIFIED Comment: 01/05/17- resolved (4) Depression Current Visit: Yes Status: Acute Base Code: F32.9 - MAJOR DEPRESSIVE DISORDER, SINGLE EPISODE, UNSPECIFIED Comment: 01/05/19- PHQ-9 complete 01/03, results . Will benefit from increase Celexa dose as soon as Levaquin course is complete as potential QT interval prologation with concomittent use (5) DVT prophylaxis Current Visit: Yes Status: Acute Base Code: [id number] - Comment: 01/05/17- on Coumadin therapy for hx biat PE, daily INR, pharmD to follow (6) DNR (do not resuscitate) Current Visit: Yes Status: Acute Base Code: Z66 - DO NOT RESUSCITATE Comment: 01/05/17 will remain DNR during this hospitalization Mini mental exam performed at bedside with no obvious cognitive deficits noted. Affect appropriate, STM relatively intact Results - Labs Result Diagrams: 01/04/17 06:15 01/04/17 06:15 Labs Last 24 Hours: Laboratory Results - last 24 hr 01/05/17 05:55 PT 27.2 H INR 2.50 DVT/PE Assessment - Risk for VTE Risk for VTE: No Risk Level: Moderate Risk Assessment Date: 01/03/17 Risk Assessment Time: 10:52 VTE Orders Placed or Will Be Placed: Yes - Active Medicaitons Current Medications: Current Medications Acetaminophen (Tylenol 500mg Tab) 1,000 mg PO Q6H PRN PRN Reason: PAIN/TEMP Albuterol Sulfate () 2.5 mg INH RESP.Q4H PRN PRN Reason: DIFFICULTY IN BREATHING Albuterol/Ipratropium (Duoneb) 3 ml INH RESP.Q4H.[facility] Last Admin: 01/05/17 14:18 Dose: 3 ml Atorvastatin Calcium (Lipitor) 40 mg PO QHS [facility] Last Admin: 01/04/17 21:18 Dose: 40 mg Citalopram Hydrobromide (Celexa) 20 mg PO DAILY [facility] Last Admin: 01/05/17 09:42 Dose: 20 mg Diphenhydramine HCl (Benadryl Capsule) 50 mg PO QHS PRN PRN Reason: INSOMNIA Last Admin: 01/04/17 21:46 Dose: 50 mg Sodium Chloride () 500 mls @ 0 mls/hr IV .Q0M [facility] PRN Reason: Wide Open Last Infusion: 01/02/17 13:34 Dose: [facility]: 01/10/17 06:00 Last Admin: 01/05/17 06:10 Dose: 500 mg Levothyroxine Sodium (Synthroid) 25 mcg PO DAILYTHY [facility] Last Admin: 01/05/17 06:10 Dose: 25 mcg Methylprednisolone Sodium Succinate (Solu-Medrol) 24 mg IVP BID [facility] Last Admin: 01/05/17 09:40 Dose: 24 mg Non-Formulary (Vesicare) 10 PO DAILY [facility] Last Admin: 01/05/17 09:38 Dose: Not Given Ondansetron HCl (Zofran) 4 mg IVP Q6H PRN PRN Reason: NAUSEA Patient Own Med: (Brovana 15 Mcg/2 Ml) 1 each INH BID [facility] Last Admin: 01/05/17 09:53 Dose: 1 each AMI Plan - Labs Result Diagrams: 01/04/17 06:15 01/04/17 06:15
[2017-01-05] MEDS: ATORVASTATIN 20 MG TABLET PO SCH (21:36)
[2017-01-05] MEDS: DIPHENHYDRAMINE HCL 25 MG CAPSULE PO PRN (21:37)
[2017-01-06] MEDS: IPRATROPIUM/ALBUTEROL (0.5MG/3MG) NEB INH SCH ×2 (06:10→10:20)
[2017-01-06] MEDS: LEVOTHYROXINE SODIUM 25 MCG TABLET PO SCH (06:19)
[2017-01-06] MEDS: LEVOFLOXACIN 500 MG TABLET PO SCH (06:19)
[2017-01-06 07:12] LABS: INR 2.18; PROTHROMBIN TIME (PATIENT) 23.7 SECONDS (9.5-12.1)
--- NOTE | 2017-01-06 08:14 | US CAROTID DOPPLER REPORT ---
EXAM: EMERGENCY BILATERAL CAROTID DOPPLER ULTRASOUND OF THE NECK HISTORY: DIZZINESS, WEAKNESS, FALLING. TECHNIQUE: Hope scale, color Doppler and spectral analysis Doppler evaluation of the bilateral carotid arteries was performed. Comparison: None. FINDINGS: 3 Vessel Right Peak Systolic/ End Diastolic Velocities Left Peak Systolic/ End Diastolic Velocities Proximal Common Carotid Artery 89.2 cm/s/11.5 cm/s 95.7 cm/s/8.9 cm/s Mid Common Carotid Artery 64.7 cm/s/12.0 cm/s 81.4 cm/s/11.5 cm/s Distal Common Carotid Artery 50.5 cm/s/8.6 cm/s 65.8 cm/s/10.9 cm/s Proximal Internal Carotid Artery 46.2 cm/s/6.9 cm/s 72.4 cm/s/9.8 cm/s Mid Internal Carotid Artery 51.7 cm/s/9.5 cm/s 64.7 cm/s/10.9 cm/s Distal Internal Carotid Artery 72.4 cm/s/16.4 cm/s 79.0 cm/s/19.7 cm/s Carotid Bulb 49.8 cm/s/8.5 cm/s 51.4 cm/s/10.4 cm/s Proximal External Carotid Artery 122.6 cm/s/11.1 cm/s 117.7 cm/s/7.9 cm/s d d d Right Flow Left Flow Vertebral Artery Antegrade Antegrade The right ICA/CCA peak systolic velocity ratio is 1.1. The left ICA/CCA peak systolic velocity ratio is 1.0. On review of the images themselves, there is some mild calcified plaque seen in the region of the distal common carotid and at the bulb extending into the proximal right ICA. No appreciable significant stenosis identified associated with this. On the left, slightly more prominent calcified plaque is seen in the distal common carotid extending into the bulb and along the proximal aspect of both the ICA and ECA, but again no significant stenosis identified associated with this. IMPRESSION: 1. SOME ATHEROMATOUS PLAQUE SEEN BILATERALLY, LEFT GREATER THAN RIGHT, BUT NO APPRECIABLE ASSOCIATED SIGNIFICANT STENOSIS EVIDENT. 2. PEAK SYSTOLIC WELL END DIASTOLIC VELOCITIES AND PEAKS SYSTOLIC RATIOS BILATERALLY WERE ALL NON-ELEVATED. ANTEGRADE FLOW IN BOTH VERTEBRALS. JOB [facility]BER: [id number] [facility]
[2017-01-06] MEDS: BROVANA 15 MCG/2 ML INH SCH (10:20)
[2017-01-06] MEDS: METHYLPREDNISOLONE SOD 40MG/VIAL IVP SCH (10:32)
[2017-01-06] MEDS: VESICARE PO SCH ×2 (10:36→10:38)
[2017-01-06] MEDS: CITALOPRAM 20 MG TABLET PO SCH (10:36)
--- NOTE | 2017-01-06 11:53 | Physical Therapy Tx Note ---
Physical Therapy Tx Note - Treatment Note Tolerated: Good Total Time Spent With Patient: 45 Physical Therapy Tx Note: Detail (The patient was sitting in a chair without O2 when PT arrived. The patient stated she felt great and was anxious to get out of her room. The patient put on pajama pants independently in a seated position and stood without support to pull pants up. The patient put on sock and shoes independently. The patient ambulated without device 300 feet plus x 2 with 2 L of O2 with supervision for safety. The patient's gait pattern was steady with occasional foot drop. The patient completed the following LE strengthening exercises : seated hip marching, LAQ, hip adductor squeezes and ankle pumps all x 10 reps, red theraband hip abduction x 10 reps, passive calf stretch x 2 reps x 20 seconds, balance exercises: standing with varying bases of support and standing on blue cushion. The patient was independent with toilet transfers. The patient ambulated 50 feet without O2 per her request. O2 sat dropped to 87 and returned to 92 within 30 seconds with pursed lip breathing techniques. The patient's physical status has improved greatly since 01/03/17.) Physical Therapy Problem List: Detail (1)Decreased balance as measured by the Tinetti Balance Assessment Tool. 2) Decreased LE strength. 3) Numerous gait deviations due to L foot drop and balance deficits. 4) L ankle ROM decifits 5) CG /supervision with mobility 6) Numerous recent falls) Physical Therapy Goals: 1) Improve the patient's balance as measured using Tinetti Balance Tool by 3 to 4 points. 2) The patient will ambulate independently with appropriate assistive device community distances. 3) Increase LE strength 1/3 muscle grade. 4) Improve L dorsiflexion by 5 to 10 degrees Physical Therapy Plan: PT 1 to 2 times a day M- until discharge from [facility] for gait training, balance and LE strengthening exercises.
--- NOTE | 2017-01-06 11:59 | Discharge Summary ---
Providers Discharge Summary Date: 01/06/17 Date of admission: 01/02/17 16:01 Expected Date of Discharge: 01/06/17 Attending physician: SHIRLENE ZALDIVAR Primary care physician: EDSON SKINNER D.O. Physical Exam - Vital Signs Vital Signs: Vital Signs - Last 24 Hrs Temp Pulse Pulse Pulse Resp BP Pulse Ox 01/06/17 10:22 87 20 96 01/06/17 06:10 65 20 95 01/06/17 06:00 99.0 F 78 20 124/64 95 01/05/17 22:23 71 20 97 01/05/17 21:00 96 H 24 01/05/17 20:11 98.5 F 96 H 24 150/74 97 01/05/17 18:06 85 21 95 01/05/17 14:29 95 01/05/17 14:00 91 H 21 93 L 01/05/17 13:13 98 F 96 H 18 139/71 97 - General General Appearance: Alert, Oriented x3, Cooperative Limitations: No limitations - Head Head exam: Atraumatic, Normocephalic, Normal inspection Head exam detail: negative: Abrasion, Contusion, Huitron's sign, General tenderness, Hematoma, Laceration - Eye Eye exam: Normal appearance. negative: Conjunctival injection, Periorbital swelling, Periorbital tenderness, Scleral icterus - ENT ENT exam: Normal exam, Mucous membranes moist Ear exam: negative: Auricular hematoma, Auricular trauma Nasal Exam: negative: Active bleeding, Discharge, Dried blood, Foreign body Mouth exam: negative: Drooling, Laceration, Muffled voice, Tongue elevation - Neck Neck exam: Normal inspection. negative: Meningismus, Tenderness - Respiratory Respiratory exam: Decreased breath sounds, Respiratory distress (conversational) , Rhonchi, Wheezes, Other (multiphonic lung sounds throughout). negative: Stridor - Cardiovascular Cardiovascular Exam: Regular rate, Normal rhythm, Normal heart sounds - GI/Abdominal GI/Abdominal exam: Soft, Normal bowel sounds. negative: Rebound, Rigid, Tenderness - Rectal Rectal exam: Deferred - exam: Deferred - Extremities Extremities exam: Other (left foot drop). negative: Calf tenderness, Pedal edema, Tenderness - Back Back exam: Denies: CVA tenderness (R), CVA tenderness (L), Rash noted - Neurological Neurological exam: Alert, CN II-XII intact, Oriented X3. negative: Motor sensory deficit - Psychiatric Psychiatric exam: Normal affect, Normal mood - Skin Skin exam: Normal color. negative: Abrasion Type of lesion: negative: abrasion Hospitalization - Hospitalization Admission Diagnosis: COPD exacerbation. Vertigo. [place]asea/vomiting - Problem List/Discharge Diagnosis (1) COPD exacerbation Current Visit: Yes Status: Acute Base Code: J44.1 - CHRONIC OBSTRUCTIVE PULMONARY DISEASE W (ACUTE) EXACERBATION Comment: 01/06/17- 71 y/o female admitted for 2 day history dizzniess, nausea, generalized weakness. ER work up unremarkable, WBC normal with exception of neutrophils 86% -> 93% this am. CXR, head CT negative for acute process. Was short of breath with ambulation in ED. Cardiac enzymes negative. BNP 807. D-Dimer 0.35. TSH 1.0. VS have remained stable. Likely etiology infectious vs. progessive COPD with overall decline in health and increasing frequency of ER visits for pulmonary issues over the past 3 months. Urine culture still pending but is continuing on PO Levaquin for COPD exacerbation. Hospital course uncomplicated. Carotid dopplers negative for significant plaques or stenosis bilat. Will benefit from Swing Bed admission for further PT/OT for strength and balance training for same discharge home to [facility] - IV solumedrol 5mg/kg QID- will initiate wean. 24mg BID x 2 days, then QD x 2 days, then DC. Patient reports intolerance of oral steroids - Levaquin 500mg QD- will transition to oral for remainder of course - PT/OT eval for weakness and fallingt - echo complete with results pending (2) Vertigo Current Visit: Yes Status: Acute Base Code: R42 - DIZZINESS AND GIDDINESS Comment: - clinically dehydrated upon arrival to ED. Significant improvement after fluid bolus. No further complaint - continue encouraging PO fluid intake (3) Nausea & vomiting Current Visit: Yes Status: Acute Discharge Diagnosis: Vomiting type: unspecified Vomiting Intractability: non-intractable Qualified Code(s): R11.2 - Nausea with vomiting, unspecified Base Code: R11.2 - NAUSEA WITH VOMITING, UNSPECIFIED Comment: 01/06/17- resolved (4) Depression Current Visit: Yes Status: Acute Base Code: F32.9 - MAJOR DEPRESSIVE DISORDER, SINGLE EPISODE, UNSPECIFIED Comment: 01/06/19- PHQ-9 complete 01/03, results . Will benefit from increase Celexa dose as soon as Levaquin course is complete as potential QT interval prologation with concomittent use (5) DVT prophylaxis Current Visit: Yes Status: Acute Base Code: [id number] - Comment: 01/05/17- on Coumadin therapy for hx biat PE, daily INR, pharmD to follow (6) DNR (do not resuscitate) Current Visit: Yes Status: Acute Base Code: Z66 - DO NOT RESUSCITATE Comment: 01/06/17 will remain DNR during this hospitalization Mini mental exam performed at bedside with no obvious cognitive deficits noted. Affect appropriate, STM relatively intact - Hospitalization Course Disposition: Moved to Swing Bed Hospital Course: 71 y/o female with CC dizziness, nausea and weakness admitted for COPD exacerbation and vertigo. Past medical history includes former smoker, asthma, COPD, PE, emphysema, lung cancer in remission since 2008, high cholesterol, obstructive bowel, hypothyroidism, osteoporosis, arthritis. Patient reports progressive problems with balance and memory problems for the past 2 months. She had not seen PCP for this. For the past 2 days had dizziness , weakness, nausea. Fell twice, was unwitnessed with patient report of LOC at the time. Wears home O2 continuously. One fall incident was associated with urine incontinence and significant weakness that prevented her from being able to change her clothes or get cleaned up for several hours. Denies recent fever, chills, dysuria, previous hx incontinence. Denies chest pain, palpitations. Denies any focal weakness or speech difficulty. She recently stopped steroids due to COPD, unsure if she had been taking antibiotics. No known psychology fellow. Has seen pulmonolgist in the past but not for many years, is unable to recall who she saw. Daughter is in process of getting her established in [place]. Reports PCP had ordered stress test in the past, unsure of when or what the results were. No known cardiac history except for high cholesterol. No known hx CVA or TIA. While in the ED VSS, SPO2 97% on 2L, was afebrile. CMP unremarkable. WBC normal with 86% neutrophils. Cardiac enzymes negative. INR 2.8. TSH 1.0. U/A with moderate blood and trace ketones. She was given a fluid bolus for clinical dehydration with improvement in dizziness. Ambulated to without issue. CXR- COPD, no active process. CT head- no acute intracranial hemorrhage or focal mass effect, generalized atrophy with chronic deep white matter changes, nonspecific 9.5mm oval lucency in the right parietal bone with total body bone scan recommended as outpatient. She was admitted for overnight observation for vertigo and exacerbation COPD. 01/03/17- resting in bed comfortably, + conversational dyspnea which she reports is baseline for her. Has remained afebrile, VSS. Denies B/B dysfunction or further bladder incontinence. Continue to feel weak and is concerned regarding her memory loss. PT has already evaluated and reporting concerns with impaired balance and weakness and right foot drop. PCP: Dr Skinner Procedures: Imaging and X-Rays 01/03/17 10:16 ARTERIAL DOPPLER CAROTID LOREN [US] Stat Cardiology Procedures 01/03/17 10:16 Echo W/CF & Cardiac Doppler NOW Abnormal Labs: Abnormal Lab Results 01/03/17 01/03/17 01/04/17 Range/Units 06:08 06:08 06:15 WBC (4.2-12.2) K/uL RBC 3.61 L (3.80-5.40) M/uL Hgb 10.2 L (11.6-16.0) gm/dl Hct 31.7 L (35.0-47.0) % Neutrophils % 93.0 H (47-80) % Lymphocytes 6.0 L (16-45) % PT 27.4 H 32.8 H (9.5-12.1) SECONDS Chloride (98-107) mmol/L Anion Gap (7-16) Random Glucose (70-110) mg/dL 01/04/17 01/04/17 01/05/17 Range/Units 06:15 06:15 05:55 WBC 14.1 H (4.2-12.2) K/uL RBC 3.79 L (3.80-5.40) M/uL Hgb 10.9 L (11.6-16.0) gm/dl Hct 33.6 L (35.0-47.0) % Neutrophils % 95.0 H (47-80) % Lymphocytes 2.0 L (16-45) % PT 27.2 H (9.5-12.1) SECONDS Chloride 108 H (98-107) mmol/L Anion Gap 6.5 L (7-16) Random Glucose 132 H (70-110) mg/dL 01/06/17 Range/Units 06:57 WBC (4.2-12.2) K/uL RBC (3.80-5.40) M/uL Hgb (11.6-16.0) gm/dl Hct (35.0-47.0) % Neutrophils % (47-80) % Lymphocytes (16-45) % PT 23.7 H (9.5-12.1) SECONDS Chloride (98-107) mmol/L Anion Gap (7-16) Random Glucose (70-110) mg/dL Condition at Discharge: (2) Stable Discharge Medications - Discharge Medications Home Medications: Ambulatory Orders Albuterol Sulfate [Proair Hfa] 2 puff INH ASDIR 12/07/13 [Last Taken 09/26/16] Brovana 150 mcg PO DAILY 12/07/13 [Last Taken 09/26/16] Calcium Carbonate/Vitamin D3 [Calcium 600 + Vit D Tablet] 1 tab PO DAILY [Last Taken 09/26/16] Tiotropium [place] [Spiriva] 1 puff INH DAILY 12/07/13 [Last Taken 09/26/16] Atorvastatin Calcium 40 mg PO DAILY 10/13/14 [Last Taken 09/26/16] Levothyroxine Sodium [Synthroid] 25 mcg PO DAILY 10/13/14 [Last Taken 09/26/16] Ranitidine HCl [Zantac] 75 mg PO QHS PRN 10/13/14 [Last Taken 09/26/16] Alendronate Sodium 1 tab PO WEEKLY 11/23/14 [Last Taken 09/26/16] Citalopram Hydrobromide [Citalopram HBr] 20 mg PO DAILY 11/23/14 [Last Taken 05/04] Warfarin Sodium [Coumadin] 4 mg PO DAILY 09/27/16 [Last Taken 09/26/16] Acetaminophen 500 mg PO Q8H PRN 01/02/17 [Last Taken Unknown] Albuterol Sulfate 0.083% [Neb] 3 ml NEB .EVERY 4-6 HOURS PRN 01/02/17 [Last Taken Unknown] Baclofen 10 mg PO ASDIR 01/02/17 [Last Taken Unknown] Solifenacin Succinate [Vesicare] 10 mg PO DAILY 01/02/17 [Last Taken Unknown] Tramadol HCl [Ultram] 50 mg PO ASDIR 01/02/17 [Last Taken Unknown] Acetaminophen [Tylenol 500Mg Tab] 1,000 mg PO Q6H PRN 01/06/17 [Last Taken Unknown] Albuterol Sulfate 0.083% [Neb] 2.5 mg INH RESP.Q4H PRN neb 01/06/17 [Last Taken Unknown] Citalopram Hydrobromide [Celexa] 20 mg PO DAILY 01/06/17 [Last Taken Unknown] Levofloxacin [Levaquin] 500 mg PO DAILYFLUOR #5 01/06/17 [Last Taken Unknown] Levothyroxine Sodium [Synthroid] 25 mcg PO DAILYTHY tab 01/06/17 [Last Taken Unknown] Discharge Plan - Discharge Instructions Activity at Discharge: As Per Physical Therapy Diet at Discharge: Regular Diet
[2017-01-06] MEDS ORDERED: RANITIDINE HCL 150 MG TABLET PO PRN (13:05)
[2017-01-06] MEDS ORDERED: BACLOFEN 10 MG TABLET PO PRN (13:08)
[2017-01-06] MEDS ORDERED: PATIENT OWN MED: MC SCH (13:15)
[2017-01-06] MEDS ORDERED: WARFARIN 1 MG TABLET PO SCH (16:00)
[2017-01-07] MEDS ORDERED: TIOTROPIUM BROMIDE 5 CAPSULES INH SCH (06:00)
[2017-01-07] MEDS ORDERED: METHYLPREDNISOLONE SOD 40MG/VIAL IVP SCH (10:00)
[2017-01-07] MEDS ORDERED: CALCIUM CARB/VITAMIN D 500MG/200IU PO SCH (10:00)
--- NOTE | 2017-01-13 14:36 | Physician Progress Note ---
Subjective - Date Date of Progress Note: 01/13/17 - Admitting Diagnosis Diagnosis: COPD exacerbation. Vertigo. [place]/vomiting - Subjective Nursing Care Plan Problem List Activity Intolerance Start: 01/02/17 17: 06 Freq: Status: Discharge Created 01/02/17 17:06 ANAYELI (Rec: 01/02/17 17:06 ANAYELI [id number]) Edit Status 01/06/17 15:17 SAF (Rec: 01/06/17 15:17 SAF [id number]) Active=>Discharge Knowledge Deficit Start: 01/02/17 17: 06 Freq: Status: Discharge Created 01/02/17 17:06 ANAYELI (Rec: 01/02/17 17:06 ANAYELI [id number]) Edit Status 01/06/17 15:17 SAF (Rec: 01/06/17 15:17 SAF [id number]) Active=>Discharge Knowledge Deficit: COPD Start: 01/02/17 17: 08 Freq: Status: Discharge Created 01/02/17 17:08 ANAYELI (Rec: 01/02/17 17:08 ANAYELI [id number]) Edit Status 01/06/17 15:17 SAF (Rec: 01/06/17 15:17 SAF [id number]) Active=>Discharge Pain Start: 01/02/17 17: 06 Freq: Status: Discharge Created 01/02/17 17:06 ANAYELI (Rec: 01/02/17 17:06 ANAYELI [id number]) Edit Status 01/06/17 15:17 SAF (Rec: 01/06/17 15:17 SAF [id number]) Active=>Discharge Subjective: 01/13/17- Patient states she feels her breathing has been better like she is back to her baseline. Says the oxygen with activity seems to be the biggest difference. She says she has some cough and wheezing but feels like this is at her baseline. Overall she has been doing very well in PT/OT. Independent with most ADL's now. She is scheduled for bone scan tomorrow at [facility] for the parietal lucency found on CT head while inpatient. Feels like she might be ready to discharge to her daughter's house this week. also, last night she used nare on her legs to remove leg hair and didn't do a good job washing it off. now has rash on b/l lower extremities. does not itch or burn. General - Continence Bowel Pattern: Normal for Patient Bladder Pattern: Frequency Urinary Incontinence: Urge Meds/Allergies - Allergies Allergies Allergy/AdvReac Type Severity Reaction Status Date / Time regadenoson [From Lexiscan] AdvReac HYPERSENSIT Verified 01/02/17 17:27 IVITY Objective - General General Appearance: Alert, Oriented x3, Cooperative Limitations: No limitations - Head Head exam: Normal inspection Head exam detail: negative: Abrasion, Contusion, Huitron's sign, General tenderness, Hematoma, Laceration - Eye Eye exam: Normal appearance - ENT ENT exam: Normal exam, Mucous membranes moist Ear exam: negative: Auricular hematoma, Auricular trauma Nasal Exam: negative: Active bleeding, Discharge, Dried blood, Foreign body Mouth exam: negative: Drooling, Laceration, Muffled voice, Tongue elevation - Neck Neck exam: Normal inspection - Respiratory Respiratory exam: Other (multiphonic lung sounds) - Cardiovascular Cardiovascular Exam: Regular rate, Normal rhythm, Normal heart sounds - GI/Abdominal GI/Abdominal exam: Soft, Normal bowel sounds. negative: Tenderness - Rectal Rectal exam: Deferred - exam: Deferred - Extremities Extremities exam: Normal inspection. negative: Calf tenderness, Pedal edema - Back Back exam: Reports: Normal inspection - Neurological Neurological exam: Alert, CN II-XII intact, Oriented X3. negative: Motor sensory deficit - Psychiatric Psychiatric exam: Normal affect, Normal mood - Skin Skin exam: Normal color, Rash (chemical dermatitis b/l lower extremities). negative: Abrasion Type of lesion: negative: abrasion H&P Results - Labs Result Diagrams: 01/04/17 06:15 01/04/17 06:15 Plan - Swing Bed Certification Initial Certification Due: 01/03/17 14 Day Re-Cert Due: 01/17/17 44 Day Re-Cert Due: 02/16/17 74 Day Re-Cert Due: 03/18/17 - Detailed Diagnosis and Plan (1) Generalized weakness Status: Acute Base Code: R53.1 - WEAKNESS Comment: 01/13/17-improving. patient was deconditioned due to hospitalization for COPD exacerbation. she is back to baseline for COPD. doing well on supplemental oxygen. -will have her continue to work with PT/OT m-f -SW to help with discharge planning. may consider home health that offers pulmonary rehab. (2) Bone lesion Status: Acute Base Code: M89.9 - DISORDER OF BONE, UNSPECIFIED Comment: 01/13- CT head done while in patient noted a lucency of the parietal bone and recommended total body bone scan. SHe has remote history of lung cancer -total body bone scan ordered and will be completed 01/14/17 at [facility] (3) Hypoxemia requiring supplemental oxygen Status: Acute Base Code: R09.02 - HYPOXEMIA; Z99.81 - DEPENDENCE ON SUPPLEMENTAL OXYGEN Comment: 01/13/17- stable -doing well with supplemental oxygen with activity. (4) DNR (do not resuscitate) Status: Acute Base Code: Z66 - DO NOT RESUSCITATE Comment: 01/13/17- will remain DNR during this hospitalization
== END 2017-01-06 12:15 | disposition swing bed (61) | DRG 192 ==
LOC: ER 11:51 → MEDSURG 16:01 → OBSVTOIN 01-03 18:30 → INTOOBSV 01-03 18:30
PROVIDERS: ADMIT Family Medicine; ATTEND Family Medicine
DX: J44.1 Chronic obstructive pulmonary disease with (acute) exacerbation (principal); R42 Dizziness and giddiness; R11.2 Nausea with vomiting, unspecified; Z66 Do not resuscitate; Z85.118 Personal history of other malignant neoplasm of bronchus and lung; E78.00 Pure hypercholesterolemia, unspecified; M81.0 Age-related osteoporosis without current pathological fracture; F32.9 Major depressive disorder, single episode, unspecified; E03.9 Hypothyroidism, unspecified
CPT/HCPCS: 99285 ×2; 96374; 96361; 82550; 83605; 85610 ×2; 82553; 84484; 80053; 81001; 84443; 80061; 85379; 85027 ×2; 83880; 71020; 93880; 70450; 94640 ×4; 94761 ×2; 93005; 93306; 93010; G0378 ×8; J1956 ×2; G8990; G8991; G8987; G8988; G8989; 94760; 97110; 97165; 97530; 99223; 99233; 99239; J2920; J2930; J7030

== ENCOUNTER 2017-01-06 12:17 | Inpatient (IN) | payer MEDICARE, BC ==
--- NOTE | 2017-01-06 12:37 | History & Physical ---
History of Present Illness - Date Date of Service for History & Physical: 02/03/17 - History of Present Illness Admitting Diagnosis: COPD exacerbation. Vertigo. Nuasea/vomiting History of Present Illness: 71 y/o female admitted to [facility] 01/02-01/06 for COPD exacerbation, acute onset weakness, falling, LOC. Past medical history includes former smoker, asthma, COPD, PE, emphysema, lung cancer in remission since 2008, high cholesterol, obstructive bowel, hypothyroidism, osteoporosis, arthritis. Hospital course relatively uncomplicated. Treated empirically for COPD exacerbation and pyruia. VS remained stable during admission. Had carotid dopplers and echocardiogram done due to falling and dizziness with patient complaint of progressive memory problems for the past 2 months. Carotid dopplers negative for significant stenosis or plaques. Echo complete, awaiting results. CT head in ED showed lucency on skull with recommendations to complete bone scan as an outpatient, Patient requests this be done during Swing admission due to concerns of imbalance, history of dizziness and history of lung cancer. Case management completed mini mental and PHQ-9. No cognitive deficits noted but did score high on depression scale (19/30). Lives alone in a 1 story home. Will benefit from 1-2 hours of therapy in hopes of continuing recovery at daughter's house at time of discharge after goals are met. Laboratory Results WBC 14.1 K/uL (4.2-12.2) H 01/04/17 06:15 RBC 3.79 M/uL (3.80-5.40) L 01/04/17 06:15 Hgb 10.9 gm/dl (11.6-16.0) L 01/04/17 06:15 Hct 33.6 % (35.0-47.0) L 01/04/17 06:15 MCV 88.7 fl (81-97) 01/04/17 06:15 MCH 28.7 pg (27-33) 01/04/17 06:15 MCHC 32.4 g/dl (32-36) 01/04/17 06:15 RDW 14.1 % (11.5-14.5) 01/04/17 06:15 Plt Count 262 K/uL (130-400) 01/04/17 06:15 MPV 10.4 fl (7.4-10.4) 01/04/17 06:15 Neutrophils % 95.0 % (47-80) H 01/04/17 06:15 Band Neutrophils % 2.0 % (0-5) 01/04/17 06:15 Eosinophils % Not Reportable 01/04/17 06:15 Basophils % Not Reportable 01/04/17 06:15 Lymphocytes 2.0 % (16-45) L 01/04/17 06:15 Monocytes 1.0 % (0-9) 01/04/17 06:15 Platelet Estimate Normal (NORMAL) 01/04/17 06:15 RBC Morphology Normal 01/03/17 06:08 Hypochromasia 1+ 01/04/17 06:15 PT 23.7 SECONDS (9.5-12.1) H 01/06/17 06:57 INR 2.18 01/06/17 06:57 D-Dimer 0.35 mg/L FEU (0-0.59) 01/02/17 13:15 Sodium 138 mmol/L (136-145) 01/04/17 06:15 Potassium 3.9 mmol/L (3.5-5.1) 01/04/17 06:15 Chloride 108 mmol/L (98-107) H 01/04/17 06:15 Carbon Dioxide 23.5 mmol/L (22-30) 01/04/17 06:15 Anion Gap 6.5 (7-16) L 01/04/17 06:15 BUN 12 mg/dL (7-17) 01/04/17 06:15 Creatinine 0.7 mg/dL (0.52-1.04) 01/04/17 06:15 Estimated GFR > 60 ml/min 01/04/17 06:15 Random Glucose 132 mg/dL (70-110) H 01/04/17 06:15 Lactic Acid 0.8 mmol/L (0.7-2.1) 01/02/17 12:15 Calcium 8.5 mg/dL (8.5-10.1) 01/04/17 06:15 Total Bilirubin 0.47 mg/dL (0.2-1.3) 01/04/17 06:15 AST 21 U/L (14-36) 01/04/17 06:15 ALT 31 U/L (9-52) 01/04/17 06:15 Alkaline Phosphatase 55 U/L (38-126) 01/04/17 06:15 Creatine Kinase 88 U/L (30-135) 01/02/17 12:15 CK-MB (CK-2) 1.0 ug/L (0-6) 01/02/17 12:15 Troponin I < 0.012 ng/mL (0.00-0.034) 01/02/17 12:15 NT-Pro-B Natriuret Pep 807.00 pg/mL (<125) H 01/02/17 13:15 Total Protein 6.5 gm/dL (6.3-8.2) 01/04/17 06:15 Albumin 3.5 gm/dL (3.5-5.0) 01/04/17 06:15 Globulin 3.0 gm/dL (1.4-4.8) 01/04/17 06:15 Albumin/Globulin Ratio 1.2 (1.1-1.8) 01/04/17 06:15 Triglycerides 57 mg/dL (30-200) 01/03/17 06:05 Cholesterol 176 mg/dL (0-200) 01/03/17 06:05 LDL Cholesterol [place] 92.3 mg/dL (0-100) 01/03/17 06:05 VLDL Cholesterol 11 mg/dL (10.00-40.00) 01/03/17 06:05 HDL Cholesterol 56 mg/dL (40-60) 01/03/17 06:05 TSH 1.00 uIU/ml (0.465-4.68) 01/02/17 12:32 Urine Color Yellow 01/02/17 12:20 Urine Appearance Clear 01/02/17 12:20 Urine pH 6.0 (5.0-8.0) 01/02/17 12:20 Ur Specific [place] 1.025 (1.002-1.030) 01/02/17 12:20 Urine Protein Negative (NEGATIVE) 01/02/17 12:20 Urine Glucose (UA) Negative (NEGATIVE) 01/02/17 12:20 Urine Ketones Trace (NEGATIVE) H 01/02/17 12:20 Urine Blood Moderate (NEGATIVE) 01/02/17 12:20 Urine Nitrite Negative (NEGATIVE) 01/02/17 12:20 Urine Bilirubin Negative (NEGATIVE) 01/02/17 12:20 Urine Urobilinogen 0.2 E.U./dL (0.20 - 1.00) 01/02/17 12:20 Ur Leukocyte Esterase Negative (NEGATIVE) 01/02/17 12:20 Urine RBC 3 - 6 (NONE SEEN) 01/02/17 12:20 Urine WBC 0 - 2 (0-2/hpf) 01/02/17 12:20 Ur Epithelial Cells 3 - 6 (FEW) 01/02/17 12:20 PCP: Dr Johnston General - Communication Preferred Language?: [place] Pastry Chef Required: No - Continence Bowel Pattern: Normal for Patient Bladder Pattern: Frequency Urinary Incontinence: Urge - Nutrition Screening Poor oral intake > 1 week: No Unplanned weight loss in specified time frame: No Nutrition Support via tube feedings or parenteral nutrition: No Pressure Ulcer: No Significantly underweight define as BMI <18.5 kg/m2: No Albumin <2.5mg/dL: No Persistent nausea/vomiting/diarrhea >3 days: No Difficulty chewing/swallowing/mouth sores: No Admitting Diagnosis: Yes Nutrition Risk Score: Low Risk Review of Systems Constitutional: Denies: Chills, Fever, Malaise, Night sweats Eyes: Denies: Eye discharge, Eye pain ENT: Denies: Congestion, Ear pain, Epistaxis Respiratory: Denies: Cough, Dyspnea Cardiovascular: Denies: Chest pain, Dyspnea on exertion Endocrine: Denies: Fatigue, Heat or cold intolerance Gastrointestinal: Reports: Nausea, Vomiting (x 1). Denies: Abdominal pain Genitourinary: Reports: Incontinence. Denies: Retention Musculoskeletal: Denies: Arthralgia, Back pain, Gout, Joint swelling Skin: Denies: Bruising, Change in color Neurological: Reports: Vertigo. Denies: Abnormal gait, Confusion, Headache, Numbness Psychiatric: Denies: Anxiety Hematological/Lymphatic: Reports: Blood Clots. Denies: Anemia Past Medical History - SOCIAL HISTORY Smoking Status: Former smoker Alcohol Use: None - SURGICAL HISTORY Past Surgical History: right salpingo-oopherectomy. T and A. bowel surgery r/ t obstruction. repair left lower leg fracture. bladder sling. cataract removal - RESPIRATORY Hx Respiratory Disorders: Yes Hx Asthma: Yes Hx COPD: Yes Hx Pulmonary Embolism: Yes Comment:: 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, emphysema - CARDIOVASCULAR Hx Cardio Disorders: Yes Hx Hypertension: Yes Comment:: high cholesterol - NEURO Hx Neuro Disorders: No - GI Hx GI Disorders: No Hx Obstructive Bowel: Yes - Hx Genitourinary Disorders: No Hx Bladder Problem: Yes - ENDOCRINE Hx Endocrine Disorders: No Hx Diabetes: No Hx Thyroid Disease: Yes - MUSCULOSKELETAL Hx Musculoskeletal Disorders: Yes Hx Arthritis: Yes Hx Osteoporosis: Yes - PSYCH Hx Psych Problems: No - HEMATOLOGY/ONCOLOGY Hx Hematology/Oncology Disorders: Yes Hx Cancer: Yes (Lung) Hx Chemotherapy: Yes Hx Radiation Therapy: Yes Comment:: prophylactic radiation to brain Family Medical History Any Significant Family History?: Yes Hx Dementia: Grandparents Hx Depression: Mother Hx Heart Disease: Father, Mother, Brother/Sister Hx HTN: Brother/Sister Hx Resp Disorders: Mother H&P Meds/Allergies - Allergies Allergies: Allergies Allergy/AdvReac Type Severity Reaction Status Date / Time regadenoson [From Lexiscan] AdvReac HYPERSENSIT Verified 01/02/17 17:27 IVITY - Home Medications Previous Rx's Medication Instructions Recorded Acetaminophen [Tylenol 500Mg Tab] 1,000 mg PO Q6H PRN 01/06/17 Albuterol Sulfate 0.083% [Neb] 2.5 mg INH RESP.Q4H PRN neb 01/06/17 Citalopram Hydrobromide [Celexa] 20 mg PO DAILY 01/06/17 Levothyroxine Sodium [Synthroid] 25 mcg PO DAILYTHY tab 01/06/17 Guaifenesin [Mucinex] 600 mg PO BID #60 01/18/17 Warfarin Sodium [Coumadin] 3 mg PO SuTh #30 01/18/17 - Active Medications Active Medications: Current Medications Acetaminophen (Tylenol 500mg Tab) 1,000 mg PO Q6H PRN PRN Reason: PAIN/TEMP Albuterol Sulfate () 2.5 mg INH RESP.Q4H PRN PRN Reason: DIFFICULTY IN BREATHING Albuterol/Ipratropium (Duoneb) 3 ml INH RESP.Q4H.WA [facility] Last Admin: 01/06/17 10:20 Dose: 3 ml Atorvastatin Calcium (Lipitor) 40 mg PO QHS ESTRELLA Last Admin: 01/05/17 21:36 Dose: 40 mg Citalopram Hydrobromide (Celexa) 20 mg PO DAILY [facility] Last Admin: 01/06/17 10:36 Dose: 20 mg Diphenhydramine HCl (Benadryl Capsule) 50 mg PO QHS PRN PRN Reason: INSOMNIA Last Admin: 01/05/17 21:37 Dose: 50 mg Sodium Chloride () 500 mls @ 0 mls/hr IV .Q0M [facility] PRN Reason: Wide Open Last Infusion: 01/02/17 13:34 Dose: Infused Levofloxacin (Levaquin Tab) 500 mg PO DAILYFLUOR ESTRELLA Stop: 01/10/17 06:00 Last Admin: 01/06/17 06:19 Dose: 500 mg Levothyroxine Sodium (Synthroid) 25 mcg PO DAILYTHY [facility] Last Admin: 01/06/17 06:19 Dose: 25 mcg Methylprednisolone Sodium Succinate (Solu-Medrol) 24 mg IVP BID [facility] Last Admin: 01/06/17 10:32 Dose: 24 mg Non-Formulary (Vesicare) 10 PO DAILY [facility] Last Admin: 01/06/17 10:38 Dose: Not Given Ondansetron HCl (Zofran) 4 mg IVP Q6H PRN PRN Reason: NAUSEA Patient Own Med: (Brovana 15 Mcg/2 Ml) 1 each INH BID [facility] Last Admin: 01/06/17 10:20 Dose: 1 each Physical Exam - Vital Signs Vital Signs: Vital Signs - Last 24 Hrs Temp Pulse Pulse Pulse Resp BP Pulse Ox 01/06/17 10:22 87 20 96 01/06/17 06:10 65 20 95 01/06/17 06:00 99.0 F 78 20 124/64 95 01/05/17 22:23 71 20 97 01/05/17 21:00 96 H 24 01/05/17 20:11 98.5 F 96 H 24 150/74 97 01/05/17 18:06 85 21 95 01/05/17 14:29 95 01/05/17 14:00 91 H 21 93 L 01/05/17 13:13 98 F 96 H 18 139/71 97 - General General Appearance: Alert, Oriented x3, Cooperative Limitations: No limitations - Head Head exam: Normal inspection - Eye Eye exam: Normal appearance - ENT ENT exam: Normal exam, Mucous membranes moist - Neck Neck exam: Normal inspection - Respiratory Respiratory exam: Other (multiphonic lung sounds) - Cardiovascular Cardiovascular Exam: Regular rate, Normal rhythm, Normal heart sounds - GI/Abdominal GI/Abdominal exam: Soft, Normal bowel sounds. negative: Tenderness - Extremities Extremities exam: Normal inspection. negative: Calf tenderness, Pedal edema - Back Back exam: Reports: Normal inspection - Psychiatric Psychiatric exam: Normal affect, Normal mood H&P Results - Labs Labs Last 24 Hours: Laboratory Results - last 24 hr 01/06/17 06:57 PT 23.7 H INR 2.18 Plan - Swing Bed Certification Initial Certification Due: 01/06/17 14 Day Re-Cert Due: 01/20/17 44 Day Re-Cert Due: 02/19/17 74 Day Re-Cert Due: 03/21/17 - Detailed Diagnosis and Plan (1) DNR (do not resuscitate) Status: Acute Base Code: Z66 - DO NOT RESUSCITATE Comment: 01/18/17- remained DNR during this hospitalization (2) Depression Status: Acute Base Code: F32.9 - MAJOR DEPRESSIVE DISORDER, SINGLE EPISODE, UNSPECIFIED Comment: 01/06/19- PHQ-9 complete 01/03, results . Will benefit from increase Celexa dose as soon as Levaquin course is complete as potential QT interval prologation with concomittent use (3) Generalized weakness Status: Acute Base Code: R53.1 - WEAKNESS Comment: 01/18/17- patient was deconditioned due to hospitalization for COPD exacerbation. she is now back to baseline for COPD. doing well on supplemental oxygen & home pulmonary medications -will have her continue to work with PT/OT until d/c. Patient not interested in home health therapy services aside from nursing to assist w/ PT/INR draws. - Patient will follow up with her primary physician on 01/27 as schedule. she agree's to return sooner if needed (4) Nausea & vomiting Status: Acute Qualifiers: Qualifiers: unspecified Qualifiers: non-intractable Qualifiers: [id number] Qualifiers: [id number] Base Code: R11.2 - NAUSEA WITH VOMITING, UNSPECIFIED Comment: 01/06/17- resolved (5) COPD exacerbation Status: Acute Base Code: J44.1 - CHRONIC OBSTRUCTIVE PULMONARY DISEASE W ( ACUTE) EXACERBATION Comment: 01/18/17- Continue Brovana, Spiriva home dose and supplemental oxygen (6) DVT prophylaxis Status: Acute Base Code: [id number] - Comment: 01/06/17- on Coumadin therapy for hx biat PE, QOD INR, pharmD to follow
[2017-01-06] MEDS ORDERED: RANITIDINE HCL 150 MG TABLET PO PRN (13:48)
[2017-01-06] MEDS ORDERED: BACLOFEN 10 MG TABLET PO PRN (13:52)
[2017-01-06] MEDS: ATORVASTATIN 20 MG TABLET PO SCH (21:24)
[2017-01-06] MEDS: WARFARIN 1 MG TABLET PO SCH (21:25)
[2017-01-06] MEDS: BROVANA 15 MCG INH SCH (21:41)
[2017-01-07] MEDS ORDERED: ACETAMINOPHEN 500 MG TABLET PO PRN (02:00)
[2017-01-07] MEDS: ALBUTEROL HFA 8 GM INHALER INH PRN (06:04)
[2017-01-07] MEDS: TIOTROPIUM BROMIDE 5 CAPSULES INH SCH (06:05)
[2017-01-07] MEDS: LEVOFLOXACIN 500 MG TABLET PO SCH (06:09)
[2017-01-07] MEDS: LEVOTHYROXINE SODIUM 25 MCG TABLET PO SCH (06:09)
[2017-01-07] MEDS: BROVANA 15 MCG INH SCH ×2 (09:16→21:43)
[2017-01-07] MEDS ORDERED: VESICARE 10 MG PO SCH (10:00)
--- NOTE | 2017-01-07 10:19 | Rehab Evaluation ---
Patient Information - Patient Information Diagnosis: generalized weakness, COPD exacerbation Ordered Treatment: OT Evaluate and Treat Status: Initial Evaluation Surgery: No History: Detail (Pt reports she has a 6 month history of losing her balance, hand shakiness and blackouts.) Past Medical/Surgical Hx: PAST MEDICAL/SURGICAL HISTORY Past Surgical History right salpingo-oopherectomy T and A bowel surgery r/t obstruction repair left lower leg fracture bladder sling cataract removal PMH - Respiratory Hx Respiratory Disorders Yes Hx Asthma Yes Hx Bronchitis No Hx Chronic Obstructive Yes Pulmonary Disease (COPD) Hx Dyspnea Yes Hx Pneumonia Yes Hx Pulmonary Embolism Yes Hx Sleep Apnea No Hx Tuberculosis No Hx of CPAP No Comment: 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, emphysema PMH - Cardiovascular Hx Cardiovascular Disorders Yes Hx Abnormal EKG No Hx Cardiac Catheterization No Hx Chest Pain No Hx Congestive Heart Failure No Hx Deep Vein Thrombosis No Hx Edema No Hx Heart Attack No Hx Hypertension Yes Hx Hypotension No Hx Irregular Heartbeat No Hx Palpitations No Hx Pacemaker/Defibrillator No Hx Vascular Disease No Comment: high cholesterol PMH - Neuro Hx Neurological Disorders No Hx Seizures No PMH - GI Hx Gastrointestinal Disorders No Hx Abdominal Pain No Hx Celiac Disease No Hx Crohn's Disease No Hx Diverticulitis No Hx Gastrointestinal Bleed No Hx Gastroesophageal Reflux No Hx Hepatitis/Jaundice No Hx Hiatal Hernia No Hx Irritable Bowel No Hx Liver Disease No Hx Nausea/Vomiting No Hx Obstructive Bowel Yes Hx Pancreatitis No Hx Rectal Bleeding No Hx Ulcer No Hx Weight Loss/Weight Gain No PMH - Hx Genitourinary Disorders No Hx Bladder Problem Yes Hx Dialysis No Hx Kidney Stones No Hx Renal Disease No Hx Urinary Tract Infection No PMH - Endocrine Hx Endocrine Disorders No Hx Diabetes No Hx Thyroid Disease Yes PMH - Musculoskeletal Hx Musculoskeletal Disorders Yes Hx Arthritis Yes Hx Back Injury No Hx Fibromyalgia No Hx Gout No Hx Musculoskeletal Disease No Hx Osteoporosis Yes Comment: leg fx PMH - Psych Hx Psychiatric Problems No Hx Anxiety Yes Hx Behavior Problems No Hx Depression Yes Hx Emotional Abuse No Hx Sexual Abuse No Hx Suicide Attempt No PMH - Hematology/Oncology Hx Hematology/Oncology Yes Disorders Hx Anemia No Hx Blood Disorders No Hx Bruising No Hx Cancer Yes: Lung Hx Chemotherapy Yes Hx Radiation Therapy Yes Hx Clotting Problems Yes: PE Hx Sickle Cell Disease No Hx Unexplained Bleeding No Hx Blood Transfusion Reaction No Comment: prophylactic radiation to brain Premorbid Status: Detail (Pt lives alone currently but is planning to discharge to her daughters house in [place]. Her daughter has a 2 story house (she will stay on the first floor), 2 steps with a hand railing at the entrance, a shower which is located on the second floor (she will be sponge bathing), and a standard height toilet. She ambulates without an assistive device and does not want to use one, she uses oxygen at home (constant at night, as needed during the day). Pt reports she did minimal home mgmt, meal prep and laundry prior to admission.) Precautions: [place], Fall - Time With Patient Total Time Spent With Patient (Min): 40 Treatment Procedures: Detail (OT eval low complexity) Subjective Information - Subjective Information Per Patient Objective Data - Pain Pain Present: No - Mental Status Patient Orientation: Oriented x3 (Pt reports she has difficulty with word finding and completing her finances at times. She was oriented and able to appropriately participate in evaluation.) - Visual Perception Appears within normal limits for therapeutic activities - ROM Within normal limits (Will UE AROM WNL although she reports "bursitis" at times in left shoulder.) - Strength/Tone Within normal limits (Will UE MMT 4+/5 throughout, pt reports decreased UE endurance.) - Coordination Appears within normal limits for therapeutic activities (Per observation, coordination appears WNL. Pt reports will hand shakiness at times which impaires her writing and fine motor activities.) - Bed Mobility Independent (Ind with supine to sit and sit to supine.) - Transfers Independent (Ind with sit to stand from EOB, toilet and chair height.) - Balance Balance Sitting: Good Balance Standing: Fair - Sensation Intact - Gait Detail (Pt ambulating in room with 2 liters of oxygen and SBA.) - ADL's/IADL's Detail (Pt able to complete total body dressing with significant increase in shortness of breath, she was Ind with toileting. She has completed showering with assist from nursing.) Therapy Assessment - Therapy Assessment Detail (Pt presents with decreased overall endurance needed for safe and Ind ADLs/IADLs, c/o decreased cognition, c/o decrease UE strength/endurance and coordination.) Problem List - Problem List Occupational Therapy Problem List: Detail (1. Decreased Ind with showering/ sponge bathing 2. Decreased UE and overall endurance needed for safe and Ind ADLs/IADLs 3. Decreased cognition/word finding/finance mgmt.) Goals - Goals Occupational Therapy Goals: 1. Pt will be safe and Ind with showering/sponge bathing. 2. Pt will demonstrate modified breathing techniques and improve endurance to allow safe ADLs. 3. Pt will participate in cognitive retraining to allow Ind with simple household financial mgmt. Prognosis - Prognosis Good Plan - Plan Occupational Therapy Plan: OT 2-4 days per week to address self cares, functional mobility, endurance, breathing techniques, cognition.
[2017-01-07] MEDS: METHYLPREDNISOLONE PF 125MG/VIAL IVP SCH (10:36)
[2017-01-07] MEDS: CALCIUM CARB/VITAMIN D 500MG/200IU PO SCH (10:37)
[2017-01-07] MEDS: CITALOPRAM 20 MG TABLET PO SCH (10:37)
[2017-01-07] MEDS: VESICARE 10 MG PO PRN (13:32)
--- NOTE | 2017-01-07 16:53 | Rehab Evaluation ---
Patient Information - Patient Information Diagnosis: generalized weakness, COPD exacerbation Ordered Treatment: OT Evaluate and Treat Status: Initial Evaluation Surgery: No History: Detail (Pt reports she has a 6 month history of losing her balance, hand shakiness and blackouts.) Past Medical/Surgical Hx: PAST MEDICAL/SURGICAL HISTORY Past Surgical History right salpingo-oopherectomy T and A bowel surgery r/t obstruction repair left lower leg fracture bladder sling cataract removal PMH - Respiratory Hx Respiratory Disorders Yes Hx Asthma Yes Hx Bronchitis No Hx Chronic Obstructive Yes Pulmonary Disease (COPD) Hx Dyspnea Yes Hx Pneumonia Yes Hx Pulmonary Embolism Yes Hx Sleep Apnea No Hx Tuberculosis No Hx of CPAP No Comment: 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, emphysema PMH - Cardiovascular Hx Cardiovascular Disorders Yes Hx Abnormal EKG No Hx Cardiac Catheterization No Hx Chest Pain No Hx Congestive Heart Failure No Hx Deep Vein Thrombosis No Hx Edema No Hx Heart Attack No Hx Hypertension Yes Hx Hypotension No Hx Irregular Heartbeat No Hx Palpitations No Hx Pacemaker/Defibrillator No Hx Vascular Disease No Comment: high cholesterol PMH - Neuro Hx Neurological Disorders No Hx Seizures No PMH - GI Hx Gastrointestinal Disorders No Hx Abdominal Pain No Hx Celiac Disease No Hx Crohn's Disease No Hx Diverticulitis No Hx Gastrointestinal Bleed No Hx Gastroesophageal Reflux No Hx Hepatitis/Jaundice No Hx Hiatal Hernia No Hx Irritable Bowel No Hx Liver Disease No Hx Nausea/Vomiting No Hx Obstructive Bowel Yes Hx Pancreatitis No Hx Rectal Bleeding No Hx Ulcer No Hx Weight Loss/Weight Gain No PMH - Hx Genitourinary Disorders No Hx Bladder Problem Yes Hx Dialysis No Hx Kidney Stones No Hx Renal Disease No Hx Urinary Tract Infection No PMH - Endocrine Hx Endocrine Disorders No Hx Diabetes No Hx Thyroid Disease Yes PMH - Musculoskeletal Hx Musculoskeletal Disorders Yes Hx Arthritis Yes Hx Back Injury No Hx Fibromyalgia No Hx Gout No Hx Musculoskeletal Disease No Hx Osteoporosis Yes Comment: leg fx PMH - Psych Hx Psychiatric Problems No Hx Anxiety Yes Hx Behavior Problems No Hx Depression Yes Hx Emotional Abuse No Hx Sexual Abuse No Hx Suicide Attempt No PMH - Hematology/Oncology Hx Hematology/Oncology Yes Disorders Hx Anemia No Hx Blood Disorders No Hx Bruising No Hx Cancer Yes: Lung Hx Chemotherapy Yes Hx Radiation Therapy Yes Hx Clotting Problems Yes: PE Hx Sickle Cell Disease No Hx Unexplained Bleeding No Hx Blood Transfusion Reaction No Comment: prophylactic radiation to brain Premorbid Status: Detail (Pt lives alone currently but is planning to discharge to her daughters house in [place]. Her daughter has a 2 story house (she will stay on the first floor), 2 steps with a hand railing at the entrance, a shower which is located on the second floor (she will be sponge bathing), and a standard height toilet. She ambulates without an assistive device and does not want to use one, she uses oxygen at home (constant at night, as needed during the day). Pt reports she did minimal home mgmt, meal prep and laundry prior to admission.) Precautions: [place], Fall - Time With Patient Total Time Spent With Patient (Min): 30 Treatment Procedures: Detail (Initial Evaluation.) Subjective Information - Subjective Information Per Patient (The patient had complaints of L knee pain. The patient reported she did not feel that good today.) Objective Data - Mental Status Patient Orientation: Oriented x3 - Visual Perception Appears within normal limits for therapeutic activities - ROM Not within normal limits (The patient has limited L LE dorsiflexion to prox -20 degrees.( Limitation is from an old injury). All other LE AROM is WFL. Refer to OT note for UE AROM.) - Strength/Tone Not within normal limits (The patient's L LE strength was 0/5 in dorsiflexors , ( however the patient uses toe extensors to acheive partial dorisflexion and toe clearance during ambulation), plantar flexors 4-/5, hip flexors 4-/5, hip abductors and adductors 4/5, hip extensors 4/5, quadriceps 4/5 and hamstrings 4- /5. The patient's R LE strength is generally 4+ to 5/5. Refer to OT note for UE strength.) - Bed Mobility Independent (The patient is independent with supine to and from sit transfer, rolling and scooting up in bed.) - Transfers Independent (The patient is independent with sit to and from stand transfer and toilet transfer.) - Balance Balance Sitting: Good Balance Standing: Fair (The patient's balance using the Tinetti Assessment Tool was 21/28 which is the moderate for risk for fall category.) - Gait Detail (The patient ambulates without device or pushing O2 a distance of 300 feet plus with supervision for safety. The patient's O2 sat. level with 2 L of O2 remains in the 90's. The patient's foot drop and stagger steps are present with fatigue. The patient ambulated on 3 steps with railing with 2 L of O2 and supervision for safety. The patient used step to pattern going descending stairs and a reciprocal gait pattern ascending stairs. The patient at times is able to ambulate short distances without O2 with O2 sat. level dropping to as low as 85. The patient is able to reach baseline in the 90's with pursed lip breathing techniques.) Therapy Assessment - Therapy Assessment Detail (The patient's gait pattern and ability to complete sustained physical activities has improved since she was an inpatient. The patient contiues to present with decreased balance and L LE strength. The patient's gait pattern continues to become unsteady at times with fatigue.) Problem List - Problem List Physical Therapy Problem List: Detail (1) Decreased balance as measured by the Tinetti Balance Asessment Tool. 2) Decreased L LE strength 3) Unsteady gait pattern with fatigue 4) L ankle ROM deficits 5) Numerous recent falls 6) Decreased ablity to complete sustained physical activity.) Occupational Therapy Problem List: Detail (1. Decreased Ind with showering/ sponge bathing 2. Decreased UE and overall endurance needed for safe and Ind ADLs/IADLs 3. Decreased cognition/word finding/finance mgmt.) Goals - Goals Physical Therapy Goals: 1) Improve the patient's balance as measured using the Tinetti Balance Tool by 3 to 4 points. 2) Increase LE strength 1/3 muscle grade to increase stability of gait pattern. 3) Improve L dorsiflexion by 5 to 10 degrees. 4) The patient will ambulate community distances with safe gait pattern ie: minimal L foot drop even with fatigue. 5) Patient will be independent with safety awareness for fall prevention in a home environment. Occupational Therapy Goals: 1. Pt will be safe and Ind with showering/sponge bathing. 2. Pt will demonstrate modified breathing techniques and improve endurance to allow safe ADLs. 3. Pt will participate in cognitive retraining to allow Ind with simple household financial mgmt. Prognosis - Prognosis Good Plan - Plan Physical Therapy Plan: PT 1-2 times a day M-F for balance and strengthening exercises, L ankle stretching exercises, gait training. Occupational Therapy Plan: OT 2-4 days per week to address self cares, functional mobility, endurance, breathing techniques, cognition.
[2017-01-07] MEDS: ATORVASTATIN 20 MG TABLET PO SCH (21:24)
[2017-01-07] MEDS: DIPHENHYDRAMINE HCL 25 MG CAPSULE PO PRN (21:25)
[2017-01-07] MEDS: WARFARIN 1 MG TABLET PO SCH (21:26)
[2017-01-08] MEDS: TIOTROPIUM BROMIDE 5 CAPSULES INH SCH (06:01)
[2017-01-08 06:08] LABS: INR 1.71; PROTHROMBIN TIME (PATIENT) 18.6 SECONDS (9.5-12.1)
[2017-01-08] MEDS: LEVOFLOXACIN 500 MG TABLET PO SCH (06:08)
[2017-01-08] MEDS: LEVOTHYROXINE SODIUM 25 MCG TABLET PO SCH (06:08)
[2017-01-08] MEDS: VESICARE 10 MG PO PRN (06:10)
[2017-01-08] MEDS ORDERED: ONDANSETRON 4 MG ODT TABLET SL PRN (10:18)
[2017-01-08] MEDS: BROVANA 15 MCG INH SCH ×2 (10:19→22:41)
--- NOTE | 2017-01-08 10:31 | Occupational Therapy Tx Note ---
Occupational Therapy Tx Note - Treatment Note Tolerated: Fair Total Time Spent With Patient: 30 (ADL) Occupational Therapy Treatment Note: Detail (S: Pt reports not feeling well today, nauseated. O: Sit to stand and amb to bathroom Indly. Completed toileting and doffed shirt, bra, shorts, slippers and underpants Indly in sitting and standing. Pt completed partial shower in sitting and standing. Dried self and donned bra, underpants, shorts, shirt and socks Indly. Pt was very short of breath throughout entire treatment and required continuous cues to perform pursed lip breathing. Treatment completed with 2 liters of oxygen on. A: Pt was Ind with dressing and partial showering, very short of breath and required ongoing cues for breathing techniques.) Occupational Therapy Problem List: Detail (1. Decreased Ind with showering/ sponge bathing 2. Decreased UE and overall endurance needed for safe and Ind ADLs/IADLs 3. Decreased cognition/word finding/finance mgmt.) Occupational Therapy Goals: 1. Pt will be safe and Ind with showering/sponge bathing. 2. Pt will demonstrate modified breathing techniques and improve endurance to allow safe ADLs. 3. Pt will participate in cognitive retraining to allow Ind with simple household financial mgmt. Prognosis: Good Occupational Therapy Plan: OT 2-4 days per week to address self cares, functional mobility, endurance, breathing techniques, cognition.
[2017-01-08] MEDS: METHYLPREDNISOLONE PF 125MG/VIAL IVP SCH (11:12)
[2017-01-08] MEDS: CALCIUM CARB/VITAMIN D 500MG/200IU PO SCH (11:13)
[2017-01-08] MEDS: CITALOPRAM 20 MG TABLET PO SCH (11:13)
--- NOTE | 2017-01-08 14:58 | Physical Therapy Tx Note ---
Physical Therapy Tx Note - Treatment Note Tolerated: Good Total Time Spent With Patient: 35 Physical Therapy Tx Note: Detail (Patient states doing good this afternoon. Patient transferred sit to and from stand SBA x1. Patient ambulated 360 feet x2 with 2L oxygen SBA x1. Patient performed the following exercises x10 reps each: seated marching, LAQ, hamstring curls with red theraband, seated heel raises, seated toe raises, glut squeezes, abdominal isometrics, seated hip abduction with red theraband, and isometric hip adduction. Patient transferred sit to and from stand SBA x1. Patient performed the following balance exercises x30 seconds each: feet together, feet together with looking up and down, feet together with looking side to side, feet together with eyes closed, feet together with pertubations, and tandem stance. Patient tolerated treatment well. Patient displays decreased balance with stride stance, feet together with pertuabtions, and feet together with eyes closed, and ambulation. Patient states thinks that she has a short left leg and that causes her decreased balance with ambulation. Patient was left seated on edge of bed with call light within reach.) Physical Therapy Problem List: Detail (1) Decreased balance as measured by the Tinetti Balance Asessment Tool. 2) Decreased L LE strength 3) Unsteady gait pattern with fatigue 4) L ankle ROM deficits 5) Numerous recent falls 6) Decreased ablity to complete sustained physical activity.) Physical Therapy Goals: 1) Improve the patient's balance as measured using the Tinetti Balance Tool by 3 to 4 points. 2) Increase LE strength 1/3 muscle grade to increase stability of gait pattern. 3) Improve L dorsiflexion by 5 to 10 degrees. 4) The patient will ambulate community distances with safe gait pattern ie: minimal L foot drop even with fatigue. 5) Patient will be independent with safety awareness for fall prevention in a home environment. Prognosis: Good Physical Therapy Plan: PT 1-2 times a day M-F for balance and strengthening exercises, L ankle stretching exercises, gait training.
[2017-01-08] MEDS: DIPHENHYDRAMINE HCL 25 MG CAPSULE PO PRN (22:56)
[2017-01-08] MEDS: WARFARIN 1 MG TABLET PO SCH (22:56)
[2017-01-08] MEDS: ATORVASTATIN 20 MG TABLET PO SCH (22:56)
[2017-01-08] MEDS: GUAIFENESIN 600 MG TABCR PO SCH (22:56)
[2017-01-09] MEDS: TIOTROPIUM BROMIDE 5 CAPSULES INH SCH (05:52)
[2017-01-09] MEDS: LEVOFLOXACIN 500 MG TABLET PO SCH (06:50)
[2017-01-09] MEDS: LEVOTHYROXINE SODIUM 25 MCG TABLET PO SCH (06:50)
[2017-01-09] MEDS: CITALOPRAM 20 MG TABLET PO SCH (09:30)
[2017-01-09] MEDS: CALCIUM CARB/VITAMIN D 500MG/200IU PO SCH (09:30)
[2017-01-09] MEDS: GUAIFENESIN 600 MG TABCR PO SCH ×2 (09:30→21:41)
[2017-01-09] MEDS: BROVANA 15 MCG INH SCH ×2 (10:05→21:33)
--- NOTE | 2017-01-09 12:56 | Physical Therapy Tx Note ---
Physical Therapy Tx Note - Treatment Note Tolerated: Fair Total Time Spent With Patient: 20 Physical Therapy Tx Note: Detail (Patient states tired today. Patient transferred sit to and from stand SBA x1. Patient ambulated 558 feet SBA x1. Patient performed the following exercises x10 reps each: seated marching, LAQ, seated heel raises, seated toe raises, glut squeezes, and abdominal isometrics. Patient displays decreased alertness with ambulation. Patient perseverated on needing to work on getting up from the floor and from a kneeling position. Patient easily distractable with exercises. Patient was left seated on edge of bed with call light within reach. Nursing was notified of patients presentation during treatment.) Physical Therapy Problem List: Detail (1) Decreased balance as measured by the Tinetti Balance Asessment Tool. 2) Decreased L LE strength 3) Unsteady gait pattern with fatigue 4) L ankle ROM deficits 5) Numerous recent falls 6) Decreased ablity to complete sustained physical activity.) Physical Therapy Goals: 1) Improve the patient's balance as measured using the Tinetti Balance Tool by 3 to 4 points. 2) Increase LE strength 1/3 muscle grade to increase stability of gait pattern. 3) Improve L dorsiflexion by 5 to 10 degrees. 4) The patient will ambulate community distances with safe gait pattern ie: minimal L foot drop even with fatigue. 5) Patient will be independent with safety awareness for fall prevention in a home environment. Prognosis: Good Physical Therapy Plan: PT 1-2 times a day M-F for balance and strengthening exercises, L ankle stretching exercises, gait training.
--- NOTE | 2017-01-09 16:52 | Physical Therapy Tx Note ---
Physical Therapy Tx Note - Treatment Note Tolerated: Good Total Time Spent With Patient: 35 Physical Therapy Tx Note: Detail (Patient states feeling better this afternoon. Patient states doesn't remember much from this morning. Patient transferred sit to and from stand CGA x1. Patient ambulated 558 feet CGA x1. Patient performed the following exercises x10 reps each: red theraband 4-way ankle, hamstring curls with red theraband, LAQ, standing hip flexion, standing hip abduction, and standing hip extension. Patient tolerated treatment well. Patient displays decreased strength and endurance with exercises. Patient required several seated rest breaks with standing hip flexion, hip abduction, and hip extension. Patient reports fatigued after treatment. Patient was left seated in chair with call light within reach.) Physical Therapy Problem List: Detail (1) Decreased balance as measured by the Tinetti Balance Asessment Tool. 2) Decreased L LE strength 3) Unsteady gait pattern with fatigue 4) L ankle ROM deficits 5) Numerous recent falls 6) Decreased ablity to complete sustained physical activity.) Physical Therapy Goals: 1) Improve the patient's balance as measured using the Tinetti Balance Tool by 3 to 4 points. 2) Increase LE strength 1/3 muscle grade to increase stability of gait pattern. 3) Improve L dorsiflexion by 5 to 10 degrees. 4) The patient will ambulate community distances with safe gait pattern ie: minimal L foot drop even with fatigue. 5) Patient will be independent with safety awareness for fall prevention in a home environment. Prognosis: Good Physical Therapy Plan: PT 1-2 times a day M-F for balance and strengthening exercises, L ankle stretching exercises, gait training.
[2017-01-09] MEDS: ATORVASTATIN 20 MG TABLET PO SCH (21:41)
[2017-01-09] MEDS: WARFARIN 1 MG TABLET PO SCH (21:42)
[2017-01-10] MEDS: LEVOFLOXACIN 500 MG TABLET PO SCH (06:09)
[2017-01-10] MEDS: LEVOTHYROXINE SODIUM 25 MCG TABLET PO SCH (06:09)
[2017-01-10 06:23] LABS: INR 2.02
[2017-01-10] MEDS: TIOTROPIUM BROMIDE 5 CAPSULES INH SCH (08:26)
[2017-01-10] MEDS: BROVANA 15 MCG INH SCH ×3 (08:27→21:06)
--- NOTE | 2017-01-10 09:48 | Occupational Therapy Tx Note ---
Occupational Therapy Tx Note - Treatment Note Occupational Therapy Treatment Note: Detail (Pt refusing OT this morning, reports her stomach is upset.) Occupational Therapy Problem List: Detail (1. Decreased Ind with showering/ sponge bathing 2. Decreased UE and overall endurance needed for safe and Ind ADLs/IADLs 3. Decreased cognition/word finding/finance mgmt.) Occupational Therapy Goals: 1. Pt will be safe and Ind with showering/sponge bathing. 2. Pt will demonstrate modified breathing techniques and improve endurance to allow safe ADLs. 3. Pt will participate in cognitive retraining to allow Ind with simple household financial mgmt. Occupational Therapy Plan: OT 2-4 days per week to address self cares, functional mobility, endurance, breathing techniques, cognition.
[2017-01-10] MEDS: CITALOPRAM 20 MG TABLET PO SCH (11:29)
[2017-01-10] MEDS: CALCIUM CARB/VITAMIN D 500MG/200IU PO SCH (11:29)
[2017-01-10] MEDS: VESICARE 10 MG PO PRN (11:30)
[2017-01-10] MEDS: GUAIFENESIN 600 MG TABCR PO SCH ×2 (11:31→22:39)
--- NOTE | 2017-01-10 14:35 | Physical Therapy Tx Note ---
Physical Therapy Tx Note - Treatment Note Total Time Spent With Patient: 45 Physical Therapy Tx Note: Detail (The patient ambulated without O2 and no assistive device 300 feet plus with O2 saturation level monitored ( remained in the 90's). The patient ambulated on 3 steps with use of one railing, reciprocal gait pattern. The patient required mod PA of 1 to complete floor transfer. The patient was instructed in a HEP of LE exercises including: seated calf stretch with red T-band, red T-band hip abduction, hamstring curls, LAQ, marching, ankle pumps all x 10 reps.) Physical Therapy Problem List: Detail (1) Decreased balance as measured by the Tinetti Balance Asessment Tool. 2) Decreased L LE strength 3) Unsteady gait pattern with fatigue 4) L ankle ROM deficits 5) Numerous recent falls 6) Decreased ablity to complete sustained physical activity.) Physical Therapy Goals: 1) Improve the patient's balance as measured using the Tinetti Balance Tool by 3 to 4 points. 2) Increase LE strength 1/3 muscle grade to increase stability of gait pattern. 3) Improve L dorsiflexion by 5 to 10 degrees. 4) The patient will ambulate community distances with safe gait pattern ie: minimal L foot drop even with fatigue. 5) Patient will be independent with safety awareness for fall prevention in a home environment. 6 ) The patient will acheive a floor transfer independently with use of object to pull up on. Physical Therapy Plan: PT 1-2 times a day M-F for balance and strengthening exercises, L ankle stretching exercises, gait training.
[2017-01-10] MEDS: ATORVASTATIN 20 MG TABLET PO SCH (22:38)
[2017-01-10] MEDS: WARFARIN 1 MG TABLET PO SCH (22:38)
[2017-01-11] MEDS: LEVOTHYROXINE SODIUM 25 MCG TABLET PO SCH (07:11)
[2017-01-11] MEDS: BROVANA 15 MCG INH SCH ×3 (08:04→21:06)
[2017-01-11] MEDS: TIOTROPIUM BROMIDE 5 CAPSULES INH SCH (08:04)
[2017-01-11] MEDS: GUAIFENESIN 600 MG TABCR PO SCH ×2 (11:45→22:33)
[2017-01-11] MEDS: CALCIUM CARB/VITAMIN D 500MG/200IU PO SCH (11:45)
[2017-01-11] MEDS: CITALOPRAM 20 MG TABLET PO SCH (11:45)
[2017-01-11] MEDS: WARFARIN 1 MG TABLET PO SCH (22:33)
[2017-01-11] MEDS: ATORVASTATIN 20 MG TABLET PO SCH (22:33)
[2017-01-12] MEDS: LEVOTHYROXINE SODIUM 25 MCG TABLET PO SCH (06:13)
[2017-01-12 06:30] LABS: INR 1.76; PROTHROMBIN TIME (PATIENT) 19.1 SECONDS (9.5-12.1)
[2017-01-12] MEDS: BROVANA 15 MCG INH SCH ×2 (09:24→21:00)
[2017-01-12] MEDS: TIOTROPIUM BROMIDE 5 CAPSULES INH SCH (09:24)
[2017-01-12] MEDS: CALCIUM CARB/VITAMIN D 500MG/200IU PO SCH (09:54)
[2017-01-12] MEDS: CITALOPRAM 20 MG TABLET PO SCH (09:54)
[2017-01-12] MEDS: GUAIFENESIN 600 MG TABCR PO SCH ×2 (09:54→21:57)
[2017-01-12] MEDS: ATORVASTATIN 20 MG TABLET PO SCH (21:56)
[2017-01-12] MEDS: WARFARIN 1 MG TABLET PO SCH (21:56)
[2017-01-13] MEDS: LEVOTHYROXINE SODIUM 25 MCG TABLET PO SCH (06:03)
[2017-01-13] MEDS: TIOTROPIUM BROMIDE 5 CAPSULES INH SCH (09:23)
[2017-01-13] MEDS: BROVANA 15 MCG INH SCH ×2 (09:23→21:06)
[2017-01-13] MEDS: CALCIUM CARB/VITAMIN D 500MG/200IU PO SCH (10:31)
[2017-01-13] MEDS: GUAIFENESIN 600 MG TABCR PO SCH ×2 (10:31→21:35)
[2017-01-13] MEDS: CITALOPRAM 20 MG TABLET PO SCH (10:31)
--- NOTE | 2017-01-13 10:59 | Occupational Therapy Tx Note ---
Occupational Therapy Tx Note - Treatment Note Tolerated: Good Total Time Spent With Patient: 45 (ADL) Occupational Therapy Treatment Note: Detail (S: Pt up in room, ready for shower. O: Pt amb to bathroom and completed toileting Indly. Doffed all clothing Indly. Pt completed total body showering in standing using grab bar as needed. Pt dried self Indly. Donned bra, underpants, shirt and pants Indly. Pt completed hair care Indly. All ADLs completed with oxygen on except during part of showering. A: Pt Ind with showering in standing, Ind with total body dressing, Ind with functional mobility in room, short of breath during ADLs.) Occupational Therapy Problem List: Detail (1. Decreased Ind with showering/ sponge bathing 2. Decreased UE and overall endurance needed for safe and Ind ADLs/IADLs 3. Decreased cognition/word finding/finance mgmt.) Occupational Therapy Goals: 1. Pt will be safe and Ind with showering/sponge bathing. 2. Pt will demonstrate modified breathing techniques and improve endurance to allow safe ADLs. 3. Pt will participate in cognitive retraining to allow Ind with simple household financial mgmt. Prognosis: Good Occupational Therapy Plan: OT 2-4 days per week to address self cares, functional mobility, endurance, breathing techniques, cognition.
--- NOTE | 2017-01-13 14:29 | Physical Therapy Tx Note ---
Physical Therapy Tx Note - Treatment Note Tolerated: Good Total Time Spent With Patient: 35 Physical Therapy Tx Note: Detail (Patient states doing good this afternoon. Patient transferred sit to and from stand SBA x1. Patient ambulated 355.5 feet with 2L portable oxygen SBA x1. Patient performed the following exercises x10 reps each: seated marching, LAQ, seated hamstring curls with red theraband, 4- way ankle with red theraband, and seated hip abduction with red theraband. Patient ambulated 95.5 feet with 2L [place] oxygen SBA x1. Patient transferred sit to and from stand independently. Patient ambulated 260 feet with 2L portable oxygen SBA x1. Patient tolerated treatment well. Patient displays decreased strength and endurance with hamstring curls with theraband, LAQ, and 4-ankle with theraband. Patient displays improved balance with ambulation. Patient was left seated on edge of bed with call light within reach.) Physical Therapy Problem List: Detail (1) Decreased balance as measured by the Tinetti Balance Asessment Tool. 2) Decreased L LE strength 3) Unsteady gait pattern with fatigue 4) L ankle ROM deficits 5) Numerous recent falls 6) Decreased ablity to complete sustained physical activity.) Physical Therapy Goals: 1) Improve the patient's balance as measured using the Tinetti Balance Tool by 3 to 4 points. 2) Increase LE strength 1/3 muscle grade to increase stability of gait pattern. 3) Improve L dorsiflexion by 5 to 10 degrees. 4) The patient will ambulate community distances with safe gait pattern ie: minimal L foot drop even with fatigue. 5) Patient will be independent with safety awareness for fall prevention in a home environment. 6 ) The patient will acheive a floor transfer independently with use of object to pull up on. Prognosis: Good Physical Therapy Plan: PT 1-2 times a day M-F for balance and strengthening exercises, L ankle stretching exercises, gait training.
--- NOTE | 2017-01-13 15:29 | Physician Progress Note ---
Subjective - Date Date of Progress Note: 01/13/17 - Admitting Diagnosis Diagnosis: Generalized weakness. COPD exacerbation - Subjective Nursing Care Plan Problem List Activity Intolerance (Swing Bed) Start: 01/06/17 19: 50 Freq: Status: Active Created 01/06/17 19:50 SAF (Rec: 01/06/17 19:50 SAF [id number]) Knowledge Deficit (Swing Bed) Start: 01/06/17 19: 50 Freq: Status: Active Created 01/06/17 19:50 SAF (Rec: 01/06/17 19:50 SAF [id number]) Knowledge Deficit: COPD Start: 01/06/17 15: 47 Freq: Status: Active Created 01/06/17 15:47 SAF (Rec: 01/06/17 15:47 SAF [id number]) Pain (Swing Bed) Start: 01/06/17 19: 50 Freq: Status: Active Created 01/06/17 19:50 SAF (Rec: 01/06/17 19:50 SAF [id number]) Subjective: 01/13/17- Patient states her breathing has been better like she is back to her baseline. Says the oxygen with activity seems to be the biggest difference. She says she has some cough and wheezing but feels like this is at her baseline. Overall she has been doing very well in pt/ot. Independent with most ADL's now. She is scheduled for bone scan tomorrow at [facility] for the parietal lucency found on CT head while inpatient. Feels like she might be ready to discharge to her [facility] house this week. Also, last night she used Mccurdy hair removal on her legs and didn't do a good job washing it off. She now has a rash on b/l lower extremities that is not painful or itching. General - Cognitive Patterns Speech: Normal Thought Process: Intact Thought Content: Normal - Communication Select best description of speech pattern: Clear Speech Ability to express ideas and wants: Understood Understanding verbal content: Understands - Mood and Behavior Patterns Appearance: Well Groomed Mood: Normal Attitude: Cooperative Motor Activity: Calm Affect: Appropriate Hallucinations: Denies - Physical Functioning Activity Level: Up as tolerated Turning: Self ad norman ROM Ability: Within Normal Limits Assistive Devices: None Ambulation Ability: Independent Bed Mobility: Independent Transfer Ability: Independent Bathing Ability: Independent Personal Hygiene: Independent Dressing Ability: Independent Eating (Feeding) Ability: Independent Toileting Ability: Independent Administer Own Medication: Independent - Continence Bowel Pattern: Normal for Patient Bladder Pattern: Normal Meds/Allergies - Allergies Allergies Allergy/AdvReac Type Severity Reaction Status Date / Time regadenoson [From [facility]] AdvReac HYPERSENSIT Verified 01/02/17 17:27 IVITY - Active Medications Current Medications Acetaminophen (Tylenol 500mg Tab) 1,000 mg PO Q8H PRN PRN Reason: Pain - General Last Admin: 01/07/17 02:08 Dose: 1,000 mg Albuterol Sulfate (Ventolin Hfa) 2 puff INH RESP.Q6H PRN PRN Reason: Wheezing Last Admin: 01/07/17 06:04 Dose: 2 puff Atorvastatin Calcium (Lipitor) 40 mg PO QHS [facility] Last Admin: 01/12/17 21:56 Dose: 40 mg Baclofen (Lioresal) 10 mg PO TID PRN PRN Reason: MUSCLE SPASMS Last Admin: 01/10/17 11:29 Dose: 10 mg Calcium/Vitamin D (Calcium 500+D Tablet) 1 tab PO DAILY [facility] Last Admin: 01/13/17 10:31 Dose: 1 tab Citalopram Hydrobromide (Celexa) 20 mg PO DAILY [facility] Last Admin: 01/13/17 10:31 Dose: 20 mg Diphenhydramine HCl (Benadryl Capsule) 50 mg PO QHS PRN PRN Reason: INSOMNIA Last Admin: 01/08/17 22:56 Dose: 50 mg Guaifenesin (Mucinex) 600 mg PO BID [facility] Last Admin: 01/13/17 10:31 Dose: 600 mg Levothyroxine Sodium (Synthroid) 25 mcg PO DAILYTHY [facility] Last Admin: 01/13/17 06:03 Dose: 25 mcg Ondansetron HCl (Zofran Odt) 4 mg SL Q8H PRN PRN Reason: NAUSEA/VOMITING Last Admin: 01/08/17 10:20 Dose: 4 mg Patient Own Med: (Brovana 15 Mcg) 1 each INH BID [facility] Last Admin: 01/13/17 09:23 Dose: 1 each Patient Own Med: Vesicare 10 Mg ( Solifenacin) 1 each PO DAILY PRN PRN Reason: bladder spasms Last Admin: 01/10/17 11:30 Dose: 1 each Ranitidine HCl (Zantac) 75 mg PO DAILY PRN PRN Reason: INDIGESTION Last Admin: 01/06/17 19:39 Dose: 75 mg Tiotropium [place] (Spiriva) 1 cap INH RESP.DAILY ESTRELLA Last Admin: 01/13/17 09:23 Dose: 1 cap Warfarin Sodium (Coumadin) 4 mg PO MoTuWeFrSa ESTRELLA Warfarin Sodium (Coumadin) 3 mg PO SuTh ESTRELLA Objective - Vital Signs Vital Signs: Vital Signs - Last 24 Hrs Temp Pulse Pulse Resp BP BP BP 01/13/17 11:25 99.4 F 129/58 01/13/17 08:00 99.4 F 18 129/58 01/12/17 21:00 69 16 01/12/17 20:00 99.5 F 69 22 133/71 Pulse Ox 01/13/17 11:25 01/13/17 08:00 97 01/12/17 21:00 100 01/12/17 20:00 99 - General General Appearance: Alert, Oriented x3, Cooperative, No acute distress - Head Head exam: Normal inspection - Eye Eye exam: Normal appearance, PERRL - ENT ENT exam: Normal exam, Mucous membranes moist, Normal external ear exam, Normal orophraynx, TM's normal bilaterally - Neck Neck exam: Normal inspection, Full ROM. negative: Tenderness - Respiratory Respiratory exam: Wheezes (few scattered wheezes). negative: Normal lung sounds bilaterally, Accessory muscle use, Decreased breath sounds - Cardiovascular Cardiovascular Exam: Regular rate, Normal rhythm, Normal heart sounds - GI/Abdominal GI/Abdominal exam: Soft, Normal bowel sounds. negative: Tenderness - Extremities Extremities exam: Normal inspection, Full ROM, Normal capillary refill. negative: Tenderness - Skin Skin exam: Rash (b/l lower extermities with irritant dermatitis) Discharge Potential - Discharge Needs Discharge Needs Comment: Home to Family member Plan - Swing Bed Certification Initial Certification Due: 01/06/17 14 Day Re-Cert Due: 01/20/17 44 Day Re-Cert Due: 02/19/17 74 Day Re-Cert Due: 03/21/17 - Detailed Diagnosis and Plan (1) Generalized weakness Current Visit: No Status: Acute Base Code: R53.1 - WEAKNESS Comment: -improving. patient was deconditioned due to hospitalization for COPD exacerbation. she is back to baseline for COPD. doing well on supplemental oxygen. -will have her continue to work with PT/OT m-f -ANGELICA to help with discharge planning. may consider home health that offers pulmonary rehab. (2) Bone lesion Current Visit: No Status: Acute Base Code: M89.9 - DISORDER OF BONE, UNSPECIFIED Comment: 01/13/17- CT head done while in patient noted a lucency of the parietal bone and recommended total body bone scan. SHe has remote history of lung cancer -total body bone scan ordered and will be completed 01/14/17 at [facility] (3) Hypoxemia requiring supplemental oxygen Current Visit: No Status: Acute Base Code: R09.02 - HYPOXEMIA; Z99.81 - DEPENDENCE ON SUPPLEMENTAL OXYGEN Comment: 01/13/17- stable -doing well with supplemental oxygen with activity. (4) DNR (do not resuscitate) Current Visit: No Status: Acute Base Code: Z66 - DO NOT RESUSCITATE Comment: 01/13/17- will remain DNR during this hospitalization
[2017-01-13] MEDS: ALBUTEROL HFA 8 GM INHALER INH PRN (17:54)
[2017-01-13] MEDS: WARFARIN 1 MG TABLET PO SCH (21:35)
[2017-01-13] MEDS: ATORVASTATIN 20 MG TABLET PO SCH (21:35)
[2017-01-14] MEDS: VESICARE 10 MG PO PRN (06:23)
[2017-01-14] MEDS: LEVOTHYROXINE SODIUM 25 MCG TABLET PO SCH (06:23)
[2017-01-14 06:46] LABS: INR 2.06; PROTHROMBIN TIME (PATIENT) 22.4 SECONDS (9.5-12.1)
[2017-01-14] MEDS: BROVANA 15 MCG INH SCH ×3 (07:37→21:03)
[2017-01-14] MEDS: TIOTROPIUM BROMIDE 5 CAPSULES INH SCH (07:37)
[2017-01-14] MEDS: GUAIFENESIN 600 MG TABCR PO SCH ×3 (08:23→21:35)
[2017-01-14] MEDS: CALCIUM CARB/VITAMIN D 500MG/200IU PO SCH ×2 (08:23→09:12)
[2017-01-14] MEDS: CITALOPRAM 20 MG TABLET PO SCH ×2 (08:23→09:12)
--- NOTE | 2017-01-14 11:51 | Occupational Therapy Tx Note ---
Occupational Therapy Tx Note - Treatment Note Occupational Therapy Treatment Note: Detail (Unable to complete OT today as patient was at an appt outside of the hospital.) Occupational Therapy Problem List: Detail (1. Decreased Ind with showering/ sponge bathing 2. Decreased UE and overall endurance needed for safe and Ind ADLs/IADLs 3. Decreased cognition/word finding/finance mgmt.) Occupational Therapy Goals: 1. Pt will be safe and Ind with showering/sponge bathing. 2. Pt will demonstrate modified breathing techniques and improve endurance to allow safe ADLs. 3. Pt will participate in cognitive retraining to allow Ind with simple household financial mgmt. Occupational Therapy Plan: OT 2-4 days per week to address self cares, functional mobility, endurance, breathing techniques, cognition.
[2017-01-14] MEDS: ALBUTEROL HFA 8 GM INHALER INH PRN (19:29)
[2017-01-14] MEDS: DIPHENHYDRAMINE HCL 25 MG CAPSULE PO PRN (21:35)
[2017-01-14] MEDS: ATORVASTATIN 20 MG TABLET PO SCH (21:35)
[2017-01-14] MEDS: WARFARIN 1 MG TABLET PO SCH (21:35)
[2017-01-15] MEDS: LEVOTHYROXINE SODIUM 25 MCG TABLET PO SCH (06:41)
[2017-01-15] MEDS: TIOTROPIUM BROMIDE 5 CAPSULES INH SCH (09:16)
[2017-01-15] MEDS: BROVANA 15 MCG INH SCH ×2 (09:16→21:49)
[2017-01-15] MEDS: GUAIFENESIN 600 MG TABCR PO SCH ×2 (09:40→22:36)
[2017-01-15] MEDS: CALCIUM CARB/VITAMIN D 500MG/200IU PO SCH (09:40)
[2017-01-15] MEDS: CITALOPRAM 20 MG TABLET PO SCH (09:40)
--- NOTE | 2017-01-15 13:40 | Physical Therapy Tx Note ---
Physical Therapy Tx Note - Treatment Note Tolerated: Good Total Time Spent With Patient: 20 Physical Therapy Tx Note: Detail (The patient ambulated without device 300 feet plus without O2. O2 sat level remained stable in the 90's. The patient completed floor transfer x3 with supervision for safety. The patient used the pushing up into a chair technique. The patient was instructed in quad strengthening included mini squats and sit to stand without use of hands.) Physical Therapy Problem List: Detail (1) Decreased balance as measured by the Tinetti Balance Asessment Tool. 2) Decreased L LE strength 3) Unsteady gait pattern with fatigue 4) L ankle ROM deficits 5) Numerous recent falls 6) Decreased ablity to complete sustained physical activity.) Physical Therapy Goals: 1) Improve the patient's balance as measured using the Tinetti Balance Tool by 3 to 4 points. 2) Increase LE strength 1/3 muscle grade to increase stability of gait pattern. 3) Improve L dorsiflexion by 5 to 10 degrees. 4) The patient will ambulate community distances with safe gait pattern ie: minimal L foot drop even with fatigue. 5) Patient will be independent with safety awareness for fall prevention in a home environment. 6 ) The patient will acheive a floor transfer independently with use of object to pull up on. Physical Therapy Plan: PT 1-2 times a day M-F for balance and strengthening exercises, L ankle stretching exercises, gait training.
--- NOTE | 2017-01-15 14:34 | Occupational Therapy Tx Note ---
Occupational Therapy Tx Note - Treatment Note Tolerated: Good Total Time Spent With Patient: 35 Occupational Therapy Treatment Note: Detail (S: Pt. stated she's been having cognitive difficulties ever since she had chemo treatment. Concerns include: word finding, STM (especially names), and ability to manage finances. O: Pt. scored 24/30 on [employer] cognitive screening (pt. has college level educ.), with difficulty in areas of STM and auditory processing. Pt. answered 3/3 time management questions correctly. Pt. answered 0/5 money management/complex math questions correctly using paper/pencil, with moderate auditory environmental distractions. Pt. educ. provided in cognitive compensatory strategies (i.e. writing, using calculator with a large screen/buttons to increase visibility, decreasing distractions, etc). Pt. is able to independently initiate cognitive compensatory strategies, and states she uses many of the options we discussed at home already. Also discussed cognitive activity options to practice skills ( such as memory games, word puzzles, etc.). A: Pt. demo. decreased cognitive attention and mild to moderate difficulty with functional math skills. Pt. may benefit from a speech therapy cognitive evaluation or further cognitive retraining/compensatory strategies to improve Ind with household financial mgt. P: Cont. OT tx during business hours until d/c. Assess pt.'s ability to use a calculator.) Occupational Therapy Problem List: Detail (1. Decreased Ind with showering/ sponge bathing 2. Decreased UE and overall endurance needed for safe and Ind ADLs/IADLs 3. Decreased cognition/word finding/finance mgmt.) Occupational Therapy Goals: 1. Pt will be safe and Ind with showering/sponge bathing. 2. Pt will demonstrate modified breathing techniques and improve endurance to allow safe ADLs. 3. Pt will participate in cognitive retraining to allow Ind with simple household financial mgmt. Prognosis: Moderate Occupational Therapy Plan: OT 2-4 days per week to address self cares, functional mobility, endurance, breathing techniques, cognition.
[2017-01-15] MEDS: DIPHENHYDRAMINE HCL 25 MG CAPSULE PO PRN (22:35)
[2017-01-15] MEDS: ATORVASTATIN 20 MG TABLET PO SCH (22:36)
[2017-01-15] MEDS: WARFARIN 1 MG TABLET PO SCH (22:37)
[2017-01-16] MEDS: LEVOTHYROXINE SODIUM 25 MCG TABLET PO SCH (06:09)
[2017-01-16] MEDS: TIOTROPIUM BROMIDE 5 CAPSULES INH SCH (06:16)
--- NOTE | 2017-01-16 06:55 | Discharge Summary ---
Providers Discharge Summary Date: 01/17/17 Date of admission: 01/06/17 12:17 Expected Date of Discharge: 01/17/17 Attending physician: SHIRLENE ZALDIVAR Primary care physician: EDSON SKINNER D.O. Physical Exam - Vital Signs Vital Signs: Vital Signs - Last 24 Hrs Temp Pulse Pulse Resp BP Pulse Ox 01/16/17 06:16 77 21 77 L 01/15/17 21:53 70 15 98 01/15/17 20:00 98.5 F 67 18 125/59 99 01/15/17 09:20 82 15 01/15/17 09:18 78 15 94 L 01/15/17 08:00 99 F 71 18 113/53 97 - General General Appearance: Alert, Oriented x3, Cooperative, No acute distress - Head Head exam: Normal inspection - Eye Eye exam: Normal appearance, PERRL - ENT ENT exam: Normal exam, Mucous membranes moist, Normal external ear exam, Normal orophraynx, TM's normal bilaterally - Neck Neck exam: Normal inspection, Full ROM. negative: Tenderness - Respiratory Respiratory exam: Wheezes (few scattered wheezes). negative: Normal lung sounds bilaterally, Accessory muscle use, Decreased breath sounds - Cardiovascular Cardiovascular Exam: Regular rate, Normal rhythm, Normal heart sounds - GI/Abdominal GI/Abdominal exam: Soft, Normal bowel sounds. negative: Tenderness - Extremities Extremities exam: Normal inspection, Full ROM, Normal capillary refill. negative: Tenderness - Skin Skin exam: Rash (b/l lower extermities with irritant dermatitis) Hospitalization - Hospitalization Admission Diagnosis: Generalized weakness. COPD exacerbation - Problem List (1) Generalized weakness Current Visit: No Status: Acute Base Code: R53.1 - WEAKNESS Comment: - patient was deconditioned due to hospitalization for COPD exacerbation. she is now back to baseline for COPD. doing well on supplemental oxygen & home pulmonary medications -will have her continue to work with PT/OT until d/c. Patient not interested in home health therapy services aside from nursing to assist w/ PT/INR draws. - Patient will follow up with her primary physician on 01/27 as schedule. she agree's to return sooner if needed (2) COPD exacerbation Current Visit: No Status: Acute Base Code: J44.1 - CHRONIC OBSTRUCTIVE PULMONARY DISEASE W (ACUTE) EXACERBATION Comment: 01/18/17- Continue Brovana, Spiriva home dose and supplemental oxygen (3) DNR (do not resuscitate) Current Visit: No Status: Acute Base Code: Z66 - DO NOT RESUSCITATE Comment: 01/18/17- remained DNR during this hospitalization - Hospitalization Course Disposition: Home Health Service Hospital Course: 71 y/o female admitted to [facility] 01/02-01/06 for COPD exacerbation, acute onset weakness, falling, LOC. Past medical history includes former smoker, asthma, COPD, PE, emphysema, lung cancer in remission since 2008, high cholesterol, obstructive bowel, hypothyroidism, osteoporosis, arthritis. Hospital course relatively uncomplicated. Treated empirically for COPD exacerbation and pyruia. VS remained stable during admission. Had carotid dopplers and echocardiogram done due to falling and dizziness with patient complaint of progressive memory problems for the past 2 months. Carotid dopplers negative for significant stenosis or plaques. Echo complete, awaiting results. CT head in ED showed lucency on skull with recommendations to complete bone scan as an outpatient, Patient requests this be done during Swing admission due to concerns of imbalance, history of dizziness and history of lung cancer. Case management completed mini mental and PHQ-9. No cognitive deficits noted but did score high on depression scale (19/30). Lives alone in a 1 story home. Will benefit from 1-2 hours of therapy in hopes of continuing recovery at daughter's house at time of discharge after goals are met. 01/13: 01/13/17- Patient states her breathing has been better like she is back to her baseline. Says the oxygen with activity seems to be the biggest difference. She says she has some cough and wheezing but feels like this is at her baseline. Overall she has been doing very well in pt/ot. Independent with most ADL's now. She is scheduled for bone scan tomorrow at [facility] for the parietal lucency found on CT head while inpatient. Feels like she might be ready to discharge to her duaghter's house this week. Also, last night she used Mccurdy hair removal on her legs and didn't do a good job washing it off. She now has a rash on b/l lower extremities that is not painful or itching. 01/16/17: Patient sitting up in bed comfortably. States she feels well. normal po intake and GI/ function. Feeling well from a pulmonary stand point. denies any worsening sob. No cp, fever, chills, abd pain, n or vomiting. Patient had bone scan yesterday. Bone scan- normal study. 01/18- feeling well this morning. states she's looking forward to going home. no concerns at this time. requesting refill of coumadin 3 mg for and sundays. Abnormal Labs: Abnormal Lab Results 01/08/17 01/10/17 01/12/17 Range/Units 05:56 06:05 05:40 PT 18.6 H 22.0 H 19.1 H (9.5-12.1) SECONDS 01/14/17 Range/Units 06:25 PT 22.4 H (9.5-12.1) SECONDS Condition at Discharge: (2) Stable Discharge Medications - Discharge Medications Prescriptions: Guaifenesin [Mucinex] 600 mg PO BID #60 Warfarin Sodium [Coumadin] 3 mg PO SuTh #30 Home Medications: Ambulatory Orders Albuterol Sulfate [Proair Hfa] 2 puff INH ASDIR 12/07/13 [Last Taken 09/26/16] Brovana 150 mcg PO DAILY 12/07/13 [Last Taken 09/26/16] Calcium Carbonate/Vitamin D3 [Calcium 600 + Vit D Tablet] 1 tab PO DAILY [Last Taken 09/26/16] Tiotropium Masterson [Spiriva] 1 puff INH DAILY 12/07/13 [Last Taken 09/26/16] Atorvastatin Calcium 40 mg PO DAILY 10/13/14 [Last Taken 09/26/16] Levothyroxine Sodium [Synthroid] 25 mcg PO DAILY 10/13/14 [Last Taken 09/26/16] Ranitidine HCl [Zantac] 75 mg PO QHS PRN 10/13/14 [Last Taken 09/26/16] Alendronate Sodium 1 tab PO WEEKLY 11/23/14 [Last Taken 09/26/16] Citalopram Hydrobromide [Citalopram HBr] 20 mg PO DAILY 11/23/14 [Last Taken 05/04] Warfarin Sodium [Coumadin] 4 mg PO DAILY 09/27/16 [Last Taken 09/26/16] Acetaminophen 500 mg PO Q8H PRN 01/02/17 [Last Taken Unknown] Albuterol Sulfate 0.083% [Neb] 3 ml NEB .EVERY 4-6 HOURS PRN 01/02/17 [Last Taken Unknown] Baclofen 10 mg PO ASDIR 01/02/17 [Last Taken Unknown] Solifenacin Succinate [Vesicare] 10 mg PO DAILY 01/02/17 [Last Taken Unknown] Tramadol HCl [Ultram] 50 mg PO ASDIR 01/02/17 [Last Taken Unknown] Acetaminophen [Tylenol 500Mg Tab] 1,000 mg PO Q6H PRN 01/06/17 [Last Taken Unknown] Albuterol Sulfate 0.083% [Neb] 2.5 mg INH RESP.Q4H PRN neb 01/06/17 [Last Taken Unknown] Citalopram Hydrobromide [Celexa] 20 mg PO DAILY 01/06/17 [Last Taken Unknown] Levothyroxine Sodium [Synthroid] 25 mcg PO DAILYTHY tab 01/06/17 [Last Taken Unknown] Guaifenesin [Mucinex] 600 mg PO BID #60 01/18/17 [Last Taken Unknown] Warfarin Sodium [Coumadin] 3 mg PO SuTh #30 01/18/17 [Last Taken Unknown] Discharge Plan - Discharge Instructions Activity at Discharge: As Per Physical Therapy, Increase Activity as Tolerated Diet at Discharge: Regular Diet Additional Instructions: Follow up appt with Dr. Skinner FridayJan 27, at 1:30. Continue home medications. Fill prescriptions. Return sooner re any new or worsening symptoms.
[2017-01-16 08:41] LABS: INR 2.24; PROTHROMBIN TIME (PATIENT) 24.4 SECONDS (9.5-12.1)
[2017-01-16] MEDS: BROVANA 15 MCG INH SCH ×2 (09:59→21:51)
[2017-01-16] MEDS: CALCIUM CARB/VITAMIN D 500MG/200IU PO SCH (11:21)
[2017-01-16] MEDS: GUAIFENESIN 600 MG TABCR PO SCH ×2 (11:22→22:46)
[2017-01-16] MEDS: CITALOPRAM 20 MG TABLET PO SCH (11:22)
--- NOTE | 2017-01-16 18:18 | Physical Therapy Tx Note ---
Physical Therapy Tx Note - Treatment Note Tolerated: Good Total Time Spent With Patient: 40 Physical Therapy Tx Note: Detail (Patient states doing good today. Patient transferred sit to and from stand independently. Patient ambulated 340 feet with 2L portable oxygen SBA x1. Patient performed the following exercises: seated marching x10, LAQ x10, seated hip abduction with red theraband x10, adductor squeeze x10, hamstring curls with red theraband x10, standing hip abduction x10, standing hip extension x10, standing hip flexion x10, squats x10 , marching at Ambric railing x2 lengths, sidestepping at Ambric railing x2 lengths, and walking backwards at Ambric railing x2 lengths. Patient transferred sit to and from stand independently. Patient performed the following balance exercises x30 seconds each: foam feet together, foam feet together with eyes closed, foam feet together with looking up and down, foam feet together looking side to side, foam feet together with pertubations, and tandem stance on floor. Patient ambulated 340 with 2L portable oxygen SBA x1. Patient tolerated treatment well. Patient declined further exercises due to fatigue. Patient displays decreased balance with foam feet together eyes closed , feet together with pertubations, feet together looking side to side, feet together looking up and down, and stride stance on floor. Patient was left seated in chair with call light within reach.) Physical Therapy Problem List: Detail (1) Decreased balance as measured by the Tinetti Balance Asessment Tool. 2) Decreased L LE strength 3) Unsteady gait pattern with fatigue 4) L ankle ROM deficits 5) Numerous recent falls 6) Decreased ablity to complete sustained physical activity.) Physical Therapy Goals: 1) Improve the patient's balance as measured using the Tinetti Balance Tool by 3 to 4 points. 2) Increase LE strength 1/3 muscle grade to increase stability of gait pattern. 3) Improve L dorsiflexion by 5 to 10 degrees. 4) The patient will ambulate community distances with safe gait pattern ie: minimal L foot drop even with fatigue. 5) Patient will be independent with safety awareness for fall prevention in a home environment. 6 ) The patient will acheive a floor transfer independently with use of object to pull up on. Prognosis: Good Physical Therapy Plan: PT 1-2 times a day M-F for balance and strengthening exercises, L ankle stretching exercises, gait training.
[2017-01-16] MEDS: ALBUTEROL HFA 8 GM INHALER INH PRN (21:59)
[2017-01-16] MEDS ORDERED: WARFARIN 1 MG TABLET PO SCH (22:00)
[2017-01-16] MEDS: ATORVASTATIN 20 MG TABLET PO SCH (22:45)
[2017-01-16] MEDS: DIPHENHYDRAMINE HCL 25 MG CAPSULE PO PRN (22:45)
[2017-01-17] MEDS: TIOTROPIUM BROMIDE 5 CAPSULES INH SCH (06:13)
[2017-01-17] MEDS: LEVOTHYROXINE SODIUM 25 MCG TABLET PO SCH (06:19)
[2017-01-17] MEDS: GUAIFENESIN 600 MG TABCR PO SCH ×2 (09:19→22:29)
[2017-01-17] MEDS: CALCIUM CARB/VITAMIN D 500MG/200IU PO SCH (09:19)
[2017-01-17] MEDS: CITALOPRAM 20 MG TABLET PO SCH (09:19)
[2017-01-17] MEDS: BROVANA 15 MCG INH SCH ×2 (10:00→21:45)
--- NOTE | 2017-01-17 10:07 | Rehab Discharge Summary ---
Patient Information - Patient Information Diagnosis: generalized weakness, COPD exacerbation Ordered Treatment: PT Evaluate and Treat Surgery: No History: Detail (Pt reports she has a 6 month history of losing her balance, hand shakiness and blackouts.) Past Medical/Surgical Hx: PAST MEDICAL/SURGICAL HISTORY Past Surgical History right salpingo-oopherectomy T and A bowel surgery r/t obstruction repair left lower leg fracture bladder sling cataract removal PMH - Respiratory Hx Respiratory Disorders Yes Hx Asthma Yes Hx Bronchitis No Hx Chronic Obstructive Yes Pulmonary Disease (COPD) Hx Dyspnea Yes Hx Pneumonia Yes Hx Pulmonary Embolism Yes Hx Sleep Apnea No Hx Tuberculosis No Hx of CPAP No Comment: 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, emphysema PMH - Cardiovascular Hx Cardiovascular Disorders Yes Hx Abnormal EKG No Hx Cardiac Catheterization No Hx Chest Pain No Hx Congestive Heart Failure No Hx Deep Vein Thrombosis No Hx Edema No Hx Heart Attack No Hx Hypertension Yes Hx Hypotension No Hx Irregular Heartbeat No Hx Palpitations No Hx Pacemaker/Defibrillator No Hx Vascular Disease No Comment: high cholesterol PMH - Neuro Hx Neurological Disorders No Hx Seizures No PMH - GI Hx Gastrointestinal Disorders No Hx Abdominal Pain No Hx Celiac Disease No Hx Crohn's Disease No Hx Diverticulitis No Hx Gastrointestinal Bleed No Hx Gastroesophageal Reflux No Hx Hepatitis/Jaundice No Hx Hiatal Hernia No Hx Irritable Bowel No Hx Liver Disease No Hx Nausea/Vomiting No Hx Obstructive Bowel Yes Hx Pancreatitis No Hx Rectal Bleeding No Hx Ulcer No Hx Weight Loss/Weight Gain No PMH - Hx Genitourinary Disorders No Hx Bladder Problem Yes Hx Dialysis No Hx Kidney Stones No Hx Renal Disease No Hx Urinary Tract Infection No PMH - Endocrine Hx Endocrine Disorders No Hx Diabetes No Hx Thyroid Disease Yes PMH - Musculoskeletal Hx Musculoskeletal Disorders Yes Hx Arthritis Yes Hx Back Injury No Hx Fibromyalgia No Hx Gout No Hx Musculoskeletal Disease No Hx Osteoporosis Yes Comment: leg fx PMH - Psych Hx Psychiatric Problems No Hx Anxiety Yes Hx Behavior Problems No Hx Depression Yes Hx Emotional Abuse No Hx Sexual Abuse No Hx Suicide Attempt No PMH - Hematology/Oncology Hx Hematology/Oncology Yes Disorders Hx Anemia No Hx Blood Disorders No Hx Bruising No Hx Cancer Yes: Lung Hx Chemotherapy Yes Hx Radiation Therapy Yes Hx Clotting Problems Yes: PE Hx Sickle Cell Disease No Hx Unexplained Bleeding No Hx Blood Transfusion Reaction No Comment: prophylactic radiation to brain Premorbid Status: Detail (Pt lives alone currently but is planning to discharge to her daughters house in [place]. Her daughter has a 2 story house (she will stay on the first floor), 2 steps with a hand railing at the entrance, a shower which is located on the second floor (she will be sponge bathing), and a standard height toilet. She ambulates without an assistive device and does not want to use one, she uses oxygen at home (constant at night, as needed during the day). Pt reports she did minimal home mgmt, meal prep and laundry prior to admission.) Precautions: [place], Fall - Time With Patient Total Time Spent With Patient (Min): 20 Treatment Procedures: Detail (Re-evaluation , Therapuetic Activity) Subjective Information - Subjective Information Per Patient (The patient reported she did not feel well today due to more difficulty breathing. The patient was up in room when PT arrived, using 2L of O2.) Objective Data - Mental Status Patient Orientation: Oriented x3 - Visual Perception Appears within normal limits for therapeutic activities - ROM Not within normal limits (The patient's L LE dorsiflexion is -5 degrees ( initially -25 degrees).) - Strength/Tone Not within normal limits (The patient's LE strength is currently 4+ to 5/5 throughout except for L dorsiflexors 3-/5 ( the patient uses toe extensors to acheive dorsiflexion.) - Bed Mobility Independent - Transfers Independent (The patient is independent with sit to stand, toilet transfers. The patient requires supervision/independent with floor transfer pushing up on a surface.) - Balance Balance Sitting: Good Balance Standing: Fair (The patient's balance using the Tinetti Assessment Tool was 25/28 which is in the low risk for falling category. The patient's balance reactions posteriorly remain impaired and the patient continues to have increased postural sway with Romberg and Sharpened Romberg position.) - Gait Detail (The patient ambulates without device distances of 300 feet plus with and at times without O2. The patient's gait pattern has improved with good foot clearance on the L LE. The patient does continue to exhibit L foot drop with fatigue and occasional postural sway. The patient ambulated on stairs independently/supervision with use of railings.) Therapy Assessment - Therapy Assessment Detail (The patient has improved balance, LE strength and ability to complete sustained physical activity.) Patient Education - Patient Education Teaching Topic: Exercise/Activity (LE strengthening exercises.) Response: Return Demonstration Teaching Method: Handout Teaching Recipient: Patient Barriers To Learning: Age Related Problem List - Problem List Physical Therapy Problem List: Detail (1) Decreased balance as measured by the Tinetti Balance Asessment Tool. 2) Decreased L LE strength 3) Unsteady gait pattern with fatigue 4) L ankle ROM deficits 5) Numerous recent falls 6) Decreased ablity to complete sustained physical activity.) Occupational Therapy Problem List: Detail (1. Decreased Ind with showering/ sponge bathing 2. Decreased UE and overall endurance needed for safe and Ind ADLs/IADLs 3. Decreased cognition/word finding/finance mgmt.) Goals - Goals Physical Therapy Goals: GOALS MET: 1) Improve the patient's balance as measured using the Tinetti Balance Tool by 3 to 4 points. 2) Increase LE strength 1/3 muscle grade to increase stability of gait pattern. 3) Improve L dorsiflexion by 5 to 10 degrees. 4) The patient will ambulate community distances with safe gait pattern ie: minimal L foot drop even with fatigue. 5 ) Patient will be independent with safety awareness for fall prevention in a home environment. 6) The patient will acheive a floor transfer independently with use of object to pull up on. Occupational Therapy Goals: 1. Pt will be safe and Ind with showering/sponge bathing. 2. Pt will demonstrate modified breathing techniques and improve endurance to allow safe ADLs. 3. Pt will participate in cognitive retraining to allow Ind with simple household financial mgmt. Plan - Plan Physical Therapy Plan: The patient is discharging from [facility] on 01/18/17 to daughter's home. Occupational Therapy Plan: OT 2-4 days per week to address self cares, functional mobility, endurance, breathing techniques, cognition.
[2017-01-17] MEDS: ALBUTEROL HFA 8 GM INHALER INH PRN ×2 (10:44→21:54)
--- NOTE | 2017-01-17 15:44 | Occupational Therapy Tx Note ---
Occupational Therapy Tx Note - Treatment Note Tolerated: Good Total Time Spent With Patient: 55 Occupational Therapy Treatment Note: Detail (S: Pt. stated she appreciated h/o of compensatory memory strategies, stating that's what she needed. O: Informal testing of visual attention, scanning, and figure ground resulted in no deficits. Holstein making part A (simple cognitive attn) completed in 117 secs ( norm=29 sec). Holstein making part B (alternating cognitive attn) completed in 270 secs (norm=75 sec), indicating s/s of moderate to severe difficulties with cognitive attn. Pt demo. ability to read a bill, answer 4/4 questions, and write out a check to "pay" the bill with 100% accuracy. Pt. correctly answered 7 /9 moderately complex math questions using a calculator with minimal auditory environmental distractions. Handout provided and reviewed with options to decrease environmental distractions and compensatory cognitive techniques, including use of a bill tracking sheet. We discussed possibility of benefits of someone she trusts reviewing her math for financial transactions, but pt. stated she feels uncomfortable with anyone else seeing her finances. A: Pt. demo. good visual and cognitive skills except for moderate to severe difficulties with cognitive attention. Pt. is able to think abstractly and recognizes her areas of deficits. Pt. demo. ability to remember/retain some cognitive compensatory strategies that were taught yesterday, and independently initiates use of strategies. Pt. may benefit from continued therapy services to support transition to new living environment. Pt. states she will be moving in with her daughter and her family. P: Pt. is scheduled to be d/c from hospital tomorrow. Pt. was instructed to call rehab dept. if she has questions/concerns.) Occupational Therapy Problem List: Detail (1. Decreased Ind with showering/ sponge bathing 2. Decreased UE and overall endurance needed for safe and Ind ADLs/IADLs 3. Decreased cognition/word finding/finance mgmt.) Occupational Therapy Goals: 1. Pt will be safe and Ind with showering/sponge bathing. 2. Pt will demonstrate modified breathing techniques and improve endurance to allow safe ADLs. 3. Pt will participate in cognitive retraining to allow Ind with simple household financial mgmt. Prognosis: Moderate Occupational Therapy Plan: OT 2-4 days per week to address self cares, functional mobility, endurance, breathing techniques, cognition.
[2017-01-17] MEDS: ATORVASTATIN 20 MG TABLET PO SCH (22:28)
[2017-01-17] MEDS: WARFARIN 1 MG TABLET PO SCH (22:28)
[2017-01-17] MEDS: DIPHENHYDRAMINE HCL 25 MG CAPSULE PO PRN (22:29)
[2017-01-18] MEDS: ALBUTEROL HFA 8 GM INHALER INH PRN (06:24)
[2017-01-18] MEDS: TIOTROPIUM BROMIDE 5 CAPSULES INH SCH (06:25)
[2017-01-18] MEDS: LEVOTHYROXINE SODIUM 25 MCG TABLET PO SCH (06:56)
[2017-01-18 08:13] LABS: INR 2.44; PROTHROMBIN TIME (PATIENT) 26.6 SECONDS (9.5-12.1)
[2017-01-18] MEDS: BROVANA 15 MCG INH SCH (09:58)
[2017-01-18] MEDS: CALCIUM CARB/VITAMIN D 500MG/200IU PO SCH (10:23)
[2017-01-18] MEDS: CITALOPRAM 20 MG TABLET PO SCH (10:23)
[2017-01-18] MEDS: GUAIFENESIN 600 MG TABCR PO SCH (10:23)
[2017-01-18] MEDS: VESICARE 10 MG PO PRN (10:25)
--- NOTE | 2017-01-21 07:31 | Rehab Discharge Summary ---
Patient Information - Patient Information Diagnosis: generalized weakness, COPD exacerbation Ordered Treatment: OT Evaluate and Treat Surgery: No History: Detail (Pt reports she has a 6 month history of losing her balance, hand shakiness and blackouts.) Past Medical/Surgical Hx: PAST MEDICAL/SURGICAL HISTORY Past Surgical History right salpingo-oopherectomy T and A bowel surgery r/t obstruction repair left lower leg fracture bladder sling cataract removal PMH - Respiratory Hx Respiratory Disorders Yes Hx Asthma Yes Hx Bronchitis No Hx Chronic Obstructive Yes Pulmonary Disease (COPD) Hx Dyspnea Yes Hx Pneumonia Yes Hx Pulmonary Embolism Yes Hx Sleep Apnea No Hx Tuberculosis No Hx of CPAP No Comment: 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, emphysema PMH - Cardiovascular Hx Cardiovascular Disorders Yes Hx Abnormal EKG No Hx Cardiac Catheterization No Hx Chest Pain No Hx Congestive Heart Failure No Hx Deep Vein Thrombosis No Hx Edema No Hx Heart Attack No Hx Hypertension Yes Hx Hypotension No Hx Irregular Heartbeat No Hx Palpitations No Hx Pacemaker/Defibrillator No Hx Vascular Disease No Comment: high cholesterol PMH - Neuro Hx Neurological Disorders No Hx Seizures No PMH - GI Hx Gastrointestinal Disorders No Hx Abdominal Pain No Hx Celiac Disease No Hx Crohn's Disease No Hx Diverticulitis No Hx Gastrointestinal Bleed No Hx Gastroesophageal Reflux No Hx Hepatitis/Jaundice No Hx Hiatal Hernia No Hx Irritable Bowel No Hx Liver Disease No Hx Nausea/Vomiting No Hx Obstructive Bowel Yes Hx Pancreatitis No Hx Rectal Bleeding No Hx Ulcer No Hx Weight Loss/Weight Gain No PMH - Hx Genitourinary Disorders No Hx Bladder Problem Yes Hx Dialysis No Hx Kidney Stones No Hx Renal Disease No Hx Urinary Tract Infection No PMH - Endocrine Hx Endocrine Disorders No Hx Diabetes No Hx Thyroid Disease Yes PMH - Musculoskeletal Hx Musculoskeletal Disorders Yes Hx Arthritis Yes Hx Back Injury No Hx Fibromyalgia No Hx Gout No Hx Musculoskeletal Disease No Hx Osteoporosis Yes Comment: leg fx PMH - Psych Hx Psychiatric Problems No Hx Anxiety Yes Hx Behavior Problems No Hx Depression Yes Hx Emotional Abuse No Hx Sexual Abuse No Hx Suicide Attempt No PMH - Hematology/Oncology Hx Hematology/Oncology Yes Disorders Hx Anemia No Hx Blood Disorders No Hx Bruising No Hx Cancer Yes: Lung Hx Chemotherapy Yes Hx Radiation Therapy Yes Hx Clotting Problems Yes: PE Hx Sickle Cell Disease No Hx Unexplained Bleeding No Hx Blood Transfusion Reaction No Comment: prophylactic radiation to brain Premorbid Status: Detail (Pt lives alone currently but is planning to discharge to her daughters house in [place]. Her daughter has a 2 story house (she will stay on the first floor), 2 steps with a hand railing at the entrance, a shower which is located on the second floor (she will be sponge bathing), and a standard height toilet. She ambulates without an assistive device and does not want to use one, she uses oxygen at home (constant at night, as needed during the day). Pt reports she did minimal home mgmt, meal prep and laundry prior to admission.) Precautions: [place], Fall Subjective Information - Subjective Information Per Patient Objective Data - Pain Pain Present: No - Mental Status Patient Orientation: Oriented x3 (See note dated 01/17/17 for details on cognitive retraining.) - Visual Perception Appears within normal limits for therapeutic activities - ROM Within normal limits (Will UE AROM WNL) - Strength/Tone Within normal limits (Will UE MMT 4+/5) - Coordination Appears within normal limits for therapeutic activities - Bed Mobility Independent - Transfers Independent - Balance Balance Sitting: Good Balance Standing: Good - Sensation Intact - Gait Detail (Ind with transfers and ambulating household distances) - ADL's/IADL's Detail (Ind with showering in standing and total body dressing. Shortness of breath continues with activity.) Therapy Assessment - Therapy Assessment Detail (Pt is safe and Ind with functional mobility and ADLs.) Problem List - Problem List Physical Therapy Problem List: Detail (1) Decreased balance as measured by the Tinetti Balance Asessment Tool. 2) Decreased L LE strength 3) Unsteady gait pattern with fatigue 4) L ankle ROM deficits 5) Numerous recent falls 6) Decreased ablity to complete sustained physical activity.) Occupational Therapy Problem List: Detail (1. Decreased Ind with showering/ sponge bathing 2. Decreased UE and overall endurance needed for safe and Ind ADLs/IADLs 3. Decreased cognition/word finding/finance mgmt.) Goals - Goals Physical Therapy Goals: GOALS MET: 1) Improve the patient's balance as measured using the Tinetti Balance Tool by 3 to 4 points. 2) Increase LE strength 1/3 muscle grade to increase stability of gait pattern. 3) Improve L dorsiflexion by 5 to 10 degrees. 4) The patient will ambulate community distances with safe gait pattern ie: minimal L foot drop even with fatigue. 5 ) Patient will be independent with safety awareness for fall prevention in a home environment. 6) The patient will acheive a floor transfer independently with use of object to pull up on. Occupational Therapy Goals: Goals Met: 1. Pt will be safe and Ind with showering/sponge bathing. 2. Pt will demonstrate modified breathing techniques and improve endurance to allow safe ADLs. 3. Pt will participate in cognitive retraining to allow Ind with simple household financial mgmt. Prognosis - Prognosis Good Plan - Plan Physical Therapy Plan: The patient is discharging from [facility] on 01/18/17 to daughter's home. Occupational Therapy Plan: Pt discharged to daughters home on 01/18/17.
== END 2017-01-18 11:20 | disposition home health service (06) | DRG 948 ==
LOC: MEDSURG 12:17
PROVIDERS: ADMIT Family Medicine; ATTEND Family Medicine
DX: R53.1 Weakness (principal); J44.9 Chronic obstructive pulmonary disease, unspecified; Z99.81 Dependence on supplemental oxygen; M89.9 Disorder of bone, unspecified; R09.02 Hypoxemia; Z66 Do not resuscitate; E78.00 Pure hypercholesterolemia, unspecified; E03.9 Hypothyroidism, unspecified; M81.0 Age-related osteoporosis without current pathological fracture; F32.9 Major depressive disorder, single episode, unspecified; Z85.118 Personal history of other malignant neoplasm of bronchus and lung
CPT/HCPCS: 85610; 94640; 94760; 94761; 97110; 97165; 97530; 97535; 99306; 99309; 99316; J2930

== ENCOUNTER 2018-10-03 16:06 | Emergency (ER) | payer MEDICARE, BC ==
--- NOTE | 2018-10-03 17:25 | Emergency Department Record ---
History of Present Illness - General Chief complaint: Pain Stated complaint: KNEE PROBLEMS Time Seen by Provider: 10/03/18 17:07 Source: Patient, Family Mode of Arrival: Ambulatory Limitations: No limitations - History of Present Illness Initial comments: 72 yo female presents with about two months of left knee pain. She fell in her home at that time. She did not seek medical attention. The knee has hurt since then. It hurts more or less at different times. She feels popping at different times. No swelling. No other injuries. No swelling, warmth or redness. No other joint pains at this point. She had a remote injury to the left lower leg with complications many years ago. MD Complaint: Extremity pain, Joint pain Onset/Timin -: Month(s) Location: Left History of Same: Yes -: Yes Arthralgia Radiation: Distal Quality: Aching Consistency: Constant Improves with: Rest Worsens with: Exertion, Walking, Weight bearing Associated Symptoms: Denies other symptoms - Related Data Previous Rx's Medication Instructions Recorded Acetaminophen [Tylenol 500Mg Tab] 1,000 mg PO Q6H PRN 01/06/17 Allergies Allergy/AdvReac Type Severity Reaction Status Date / Time regadenoson [From Lexiscan] AdvReac HYPERSENSIT Unverified 10/03/18 17:10 IVITY Travel Screening - Travel/Exposure Within Last 30 Days Have you traveled within the last 30 days?: No - Travel/Exposure Within Last Year Have you traveled outside the [place] in the last year?: No - Additonal Travel Details Have you been exposed to anyone with a communicable illness?: No - Travel Symptoms Symptom Screening: None Review of Systems Constitutional: Denies: Chills, Fever, Malaise, Weakness Eyes: Denies: Eye discharge ENT: Denies: Congestion Respiratory: Reports: Cough (chronic). Denies: Dyspnea Cardiovascular: Denies: Chest pain, Palpitations, Syncope Endocrine: Denies: Fatigue Gastrointestinal: Denies: Abdominal pain, Diarrhea, Nausea, Vomiting Genitourinary: Denies: Dysuria Musculoskeletal: Reports: Arthralgia. 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, emphysema - CARDIOVASCULAR Hx Cardio Disorders: Yes Hx Hypertension: Yes Comment:: high cholesterol - NEURO Hx Neuro Disorders: No Hx Seizures: No - GI Hx GI Disorders: No Hx Obstructive Bowel: Yes - Hx Genitourinary Disorders: No Hx Bladder Problem: Yes - ENDOCRINE Hx Endocrine Disorders: No Hx Diabetes: No Hx Thyroid Disease: Yes - MUSCULOSKELETAL Hx Musculoskeletal Disorders: Yes Hx Arthritis: Yes Hx Osteoporosis: Yes - PSYCH Hx Psych Problems: No Hx Anxiety: Yes Hx Behavior Problems: No Hx Depression: Yes Hx Emotional Abuse: No Hx Sexual Abuse: No Hx Suicide Attempt: No - HEMATOLOGY/ONCOLOGY Hx Hematology/Oncology Disorders: Yes Hx Cancer: Yes (Lung) Hx Chemotherapy: Yes Hx Radiation Therapy: Yes Comment:: prophylactic radiation to brain Family Medical History Any Significant Family History?: No Hx Dementia: Grandparents Hx Depression: Mother Hx Heart Disease: Father, Mother, Brother/Sister Hx HTN: Brother/Sister Hx Resp Disorders: Mother Physical Exam - General General Appearance: Alert, Oriented x3, Cooperative, No acute distress Limitations: No limitations - Head Head exam: Atraumatic, Normal inspection - Eye Eye exam: Normal appearance - ENT ENT exam: Normal exam Ear exam: Normal external inspection Nasal Exam: Normal inspection Mouth exam: Normal external inspection - Neck Neck exam: Normal inspection. negative: Tenderness - Respiratory Respiratory exam: Decreased breath sounds - Rectal Rectal exam: Deferred - exam: Deferred - Extremities Extremities exam: Normal inspection, Full ROM, Normal capillary refill, Tenderness. negative: Joint swelling, Pedal edema Image of Full Body: 1 - full ROM, mild medial and lateral joint line tenderness, patella is intact - Back Back exam: Denies: CVA tenderness (R), CVA tenderness (L) - Neurological Neurological exam: Alert, Oriented X3 - Psychiatric Psychiatric exam: Normal affect, Normal mood. negative: Agitated, Anxious - Skin Skin exam: Dry, Intact, Normal color, Warm. negative: Erythema Course Vital Signs 10/03/18 16:17 Temperature 98.1 F Pulse Rate 92 H Respiratory 16 Rate Blood Pressure 129/79 Pulse Ox 99 - Reevaluation(s) Reevaluation #1: 10/03/18 18:08 The knee XR was reviewed No acute fracture identified She will be referred to her PCP and Ortho for follow up of the knee pain. Disposition Disposition: Discharge Clinical Impression: Knee pain, left Qualifiers: Chronicity: acute Qualified Code(s): M25.562 - Pain in left knee Disposition: Home, Self-Care Condition: (1) Good Instructions: Knee Pain (ED) Additional Instructions: Call your doctor for the next available follow up appointment Review this ER visit and the tests performed with your family doctor Return to the ER for a recheck if worse, any new concerns or questions You have been referred to the orthopedic clinic for follow up of the knee pain Referrals: SADIE ALICEA [DOCTOR OF OSTEOPATH] - [facility] Special[facility] Clin[facility] [Provider Group] Forms: Patient Portal Access Time of Disposition: 18:11 Quality - Quality Measures Quality Measures: N/A - Blood Pressure Screening Does Patient Have Any of the Following: No Blood Pressure Classification: Pre-Hypertensive BP Reading Systolic Measurement: 129 Diastolic Measurement: 79 Screening for High Blood Pressure: < Pre-Hypertensive BP, F/U Documented > [G8950] Pre-Hypertensive Follow-up Interventions: Referral to alternative/primary care provider.
--- NOTE | 2018-10-06 07:25 | RADIOLOGY REPORT ---
DATE: 10/03/2018. EXAM: LEFT KNEE, FOUR VIEWS. HISTORY: FALL TWO MONTHS PRIOR. TECHNIQUE: Four views of the left knee. COMPARISON: None. FINDINGS: The bones appear osteopenic. No clearly acute osseus abnormalities seen. No joint effusion. There are moderate tri-compartmental degenerative changes. IMPRESSION: 1. NO CLEARLY ACUTE LEFT KNEE ABNORMALITY. 2. PROMINENT OSTEOPENIA. 3. TRI-COMPARTMENTAL DEGENERATIVE CHANGE. Job Number: [id number] MTDD
== END 2018-10-03 18:53 | disposition home or self-care (01) ==
LOC: ER 16:06
DX: G89.11 Acute pain due to trauma (principal); M25.562 Pain in left knee; Y92.009 Unspecified place in unspecified non-institutional (private) residence as the place of occurrence of the external cause; J44.9 Chronic obstructive pulmonary disease, unspecified; I10 Essential (primary) hypertension; Z87.891 Personal history of nicotine dependence; Z85.118 Personal history of other malignant neoplasm of bronchus and lung
CPT/HCPCS: 99283

== ENCOUNTER 2018-10-21 17:41 | Observation (INO) | payer MEDICARE, BC ==
[2018-10-21 18:20] LABS: ABSOLUTE NEUTROPHIL COUNT 9.56; HEMATOCRIT 36.5 % (35.0-47.0); HEMOGLOBIN 11.4 gm/dl (11.6-16.0); MEAN CELL VOLUME 89.7 fl (81-97); MEAN CORPUSCULAR HGB CONC 31.2 g/dl (32-36); MEAN PLATELET VOLUME 9.3 fl (7.4-10.4); PLATELET COUNT 295 K/uL (130-400); RED BLOOD COUNT 4.07 M/uL (3.80-5.40); RED CELL DISTRIBUTION WIDTH 13.7 % (11.5-14.5); WHITE BLOOD COUNT W/O DIFF 11.6 K/uL (4.2-12.2)
--- NOTE | 2018-10-21 18:29 | Emergency Department Record ---
History of Present Illness - General Chief Complaint: Fall Injury Stated Complaint: FALL/LIGHTED HEADED Time Seen by Provider: 10/21/18 18:04 Source: Patient Mode of Arrival: Wheelchair Limitations: No limitations - History of Present Illness Initial Comments: 72 yo female presents to ED for evaluation of witnessed syncope at home this afternoon. Patient's friend reports that the patient became dizzy, diaphoretic, and was assisted to the floor to avoid injury. Patient denies chest pain or discomfort, denies recent illness. Patient reports history of COPD, was seen and examined at [facility] last week and diagnosed with COPD and released. Patient denies productive cough symptoms or fevers. Patient denies previous cardiac disease or arrhythmias, denies use of anticoagulation medications. Patient reports that she used to take Coumadin for DVT 4 years ago. Patient denies calf pain or swelling on examination. Patient is oxygen dependent at home. 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 Witnessed: Yes, by family Place Fall Occurred: Home Loss of Consciousness: None Prolonged Down Time?: No Symptoms Prior to Fall: Dizziness Associated Symptoms: Denies - [place] Coma Scale Eye Response: (4) Open spontaneously Motor Response: (6) Obeys commands Verbal Response: (5) Oriented Best Total: 15 - Related Data Previous Rx's Medication Instructions Recorded Acetaminophen [Tylenol 500Mg Tab] 1,000 mg PO Q6H PRN 01/06/17 Allergies Allergy/AdvReac Type Severity Reaction Status Date / Time regadenoson [From Lexiscan] AdvReac HYPERSENSIT Verified 10/21/18 17:57 IVITY Travel Screening - Travel/Exposure Within Last 30 Days Have you traveled within the last 30 days?: No - Travel/Exposure Within Last Year Have you traveled outside the [place] in the last year?: No - Additonal Travel Details Have you been exposed to anyone with a communicable illness?: No - Travel Symptoms Symptom Screening: None Review of Systems Constitutional: Denies: Chills, Fever, Malaise, Night sweats Eyes: Denies: Eye discharge, Eye pain ENT: Denies: Congestion, Ear pain, Epistaxis Respiratory: Reports: Dyspnea. Denies: Cough, Wheezes Cardiovascular: Reports: Dyspnea on exertion. Denies: Chest pain, Edema Endocrine: Denies: Fatigue, Heat or cold intolerance Gastrointestinal: Denies: Abdominal pain, Nausea, Vomiting Genitourinary: Denies: Incontinence, Retention Musculoskeletal: Denies: Arthralgia, Back pain, Gout, Joint swelling Skin: Denies: Bruising, Change in color Neurological: Denies: Abnormal gait, Confusion, Headache, Tingling, Tremors Psychiatric: Denies: Anxiety Hematological/Lymphatic: Reports: Blood Clots. 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, emphysema - CARDIOVASCULAR Hx Cardio Disorders: Yes Hx Hypertension: Yes Comment:: high cholesterol - NEURO Hx Neuro Disorders: No Hx Seizures: No - GI Hx GI Disorders: No Hx Obstructive Bowel: Yes - Hx Genitourinary Disorders: No Hx Bladder Problem: Yes - ENDOCRINE Hx Endocrine Disorders: No Hx Diabetes: No Hx Thyroid Disease: Yes - MUSCULOSKELETAL Hx Musculoskeletal Disorders: Yes Hx Arthritis: Yes Hx Osteoporosis: Yes - PSYCH Hx Psych Problems: No Hx Anxiety: Yes Hx Behavior Problems: No Hx Depression: Yes Hx Emotional Abuse: No Hx Sexual Abuse: No Hx Suicide Attempt: No - HEMATOLOGY/ONCOLOGY Hx Hematology/Oncology Disorders: Yes Hx Cancer: Yes (Lung) Hx Chemotherapy: Yes Hx Radiation Therapy: Yes Comment:: prophylactic radiation to brain Family Medical History Any Significant Family History?: Yes Hx Dementia: Grandparents Hx Depression: Mother Hx Heart Disease: Father, Mother, Brother/Sister Hx HTN: Brother/Sister Hx Resp Disorders: Mother Physical Exam - General General Appearance: Alert, Oriented x3, Cooperative Limitations: No limitations - Head Head exam: Atraumatic, Normocephalic, Normal inspection Head exam detail: negative: Abrasion, Contusion, Huitron's sign, General tenderness, Hematoma, Laceration - Eye Eye exam: Normal appearance. negative: Conjunctival injection, Periorbital swelling, Periorbital tenderness, Scleral icterus - ENT Ear exam: negative: Auricular hematoma, Auricular trauma Nasal Exam: negative: Active bleeding, Discharge, Dried blood, Foreign body Mouth exam: negative: Drooling, Laceration, Muffled voice, Tongue elevation - Neck Neck exam: Normal inspection. negative: Meningismus, Tenderness - Respiratory Respiratory exam: Decreased breath sounds. negative: Respiratory distress, Rhonchi, Stridor, Wheezes - Cardiovascular Cardiovascular Exam: Regular rate, Normal rhythm, Normal heart sounds - GI/Abdominal GI/Abdominal exam: Soft. negative: Distended, Rebound, Rigid, Tenderness - Rectal Rectal exam: Deferred - exam: Deferred - Extremities Extremities exam: Normal inspection. negative: Pedal edema, Tenderness - Back Back exam: Denies: CVA tenderness (R), CVA tenderness (L) - Neurological Neurological exam: Alert, Normal gait, Oriented X3 - Psychiatric Psychiatric exam: Normal affect, Normal mood - Skin Skin exam: Normal color. negative: Abrasion Type of lesion: negative: abrasion Course Vital Signs 10/21/18 18:03 Temperature 98.7 F Pulse Rate 67 Respiratory 20 Rate Blood Pressure 115/85 Pulse Ox 99 - Reevaluation(s) Reevaluation #1: 10/21/18 18:28 EKG: NSR 59 Normal axis, normal intervals Artifact present, no acute ST-T wave changes are seen. Reevaluation #2: 10/21/18 18:33 Previous records reviewed from 10/12/18: CXR demonstrates cardiomegaly, no acute process Laboratory studies were reviewed: Hgb 10.10.8, BNP 346. Labs are otherwise grossly unremarkable for an acute process. No d-dimer performed. Patient was discharged home on Zithromax and Prednisone for treatment of COPD/Bronchitis. Reevaluation #3: 10/21/18 20:06 Laboratory studies were reviewed: Hgb 11.4 85% neutrophils Laboratory studies are otherwise grossly unremarkable for an acute process. Reevaluation #4: 10/21/18 20:53 CTA Chest: Chronic changes left hilum No Pneumonia No PE CT Brain: Chronic changes Patient was updated on all results, will admit for syncope and cardiac monitoring to exclude arrhythmia as the etiology for syncope. Reevaluation #5: 10/21/18 20:58 Case was discussed with Angelia Wang NP, will accept admission at this time. Medical Decision Making - Lab Data Result diagrams: 10/21/18 18:10 10/21/18 18:10 Lab Results 10/21/18 Range/Units 18:10 WBC 11.6 (4.2-12.2) K/uL RBC 4.07 (3.80-5.40) M/uL Hgb 11.4 L (11.6-16.0) gm/dl Hct 36.5 (35.0-47.0) % MCV 89.7 (81-97) fl MCH 28.0 (27-33) pg MCHC 31.2 L (32-36) g/dl RDW 13.7 (11.5-14.5) % Plt Count 295 (130-400) K/uL MPV 9.3 (7.4-10.4) fl Eosinophils % Not Reportable Basophils % Not Reportable Absolute Neutrophils 9.56 Disposition Disposition: Admit Clinical Impression: Syncope Qualifiers: Syncope type: unspecified Qualified Code(s): R55 - Syncope and collapse COPD (chronic obstructive pulmonary disease) Qualifiers: COPD type: unspecified COPD Qualified Code(s): J44.9 - Chronic obstructive pulmonary disease, unspecified Disposition: Still a Patient at [facility] Decision to Admit: Admit from ER Decision to Admit Date: 10/21/18 Decision to Admit Time: 20:55 Condition: (2) Stable Forms: Patient Portal Access Time of Disposition: 20:55 Quality - Quality Measures Quality Measures: N/A - Blood Pressure Screening Does Patient Have Any of the Following: No Blood Pressure Classification: Pre-Hypertensive BP Reading Systolic Measurement: 115 Diastolic Measurement: 85 Screening for High Blood Pressure: < Pre-Hypertensive BP, F/U Documented > [G895 0] Pre-Hypertensive Follow-up Interventions: Referral to alternative/primary care provider.
[2018-10-21 18:34] LABS: BLOOD UREA NITROGEN 15 mg/dL (8-23); CREATININE 0.8 mg/dL (0.5-0.9); EST GLOMERULAR FILTRATION RATE > 60 mL/min
[2018-10-21 18:35] LABS: TOTAL PROTEIN 6.3 g/dL (6.6-8.7)
[2018-10-21 18:37] LABS: GLUCOSE,RANDOM 170 mg/dL (74-109)
[2018-10-21 18:39] LABS: ALT/SGPT 11 U/L (<33); AST/SGOT 14 U/L (10.0-35.0)
[2018-10-21 18:40] LABS: ALB/GLOB RATIO 1.5 (1.1-1.8); ALBUMIN 3.8 g/dL (4.0-5.0); ALKALINE PHOSPHATASE 66 U/L (35-104)
[2018-10-21 19:16] LABS: URINE APPEARANCE CLEAR; URINE BILIRUBIN NEGATIVE (NEGATIVE); URINE BLOOD NEGATIVE (NEGATIVE); URINE COLOR YELLOW; URINE GLUCOSE (UA) NEGATIVE (NEGATIVE); URINE KETONE NEGATIVE (NEGATIVE); URINE LEUKOCYTE ESTERASE NEGATIVE (NEGATIVE); URINE NITRITE NEGATIVE (NEGATIVE); URINE PROTEIN NEGATIVE (NEGATIVE); URINE UROBILINOGEN 0.2 E.U./dL (0.20 - 1.00)
[2018-10-21] MEDS ORDERED: 0.9 % SODIUM CHLORIDE 1000ML 1,000 ML IV PRN (21:15)
--- NOTE | 2018-10-21 21:47 | History & Physical ---
History of Present Illness - Date of Service Date of Service for History & Physical: 10/22/18 - History of Present Illness Admitting Diagnosis: Syncope-exclude arrhythmia. COPD-oxygen dependent History of Present Illness: Mrs. Dominguez is a 72 yo female who presented to ED for evaluation of a witnessed syncopal episode at home this afternoon. Patient's friend reports that the patient became dizzy, diaphoretic, and was assisted to the floor to avoid injury. Patient denies chest pain or discomfort, denies recent illness. Patient reports history of COPD, was seen and examined at [facility] last week and diagnosed with COPD and released. Patient denies productive cough symptoms or fevers. Patient denies previous cardiac disease or arrhythmias, denies use of anticoagulation medications. Patient reports that she used to take Coumadin for DVT 4 years ago. Patient denies calf pain or swelling on examination. Patient is oxygen dependent at home. 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 In the ED, her vitals were stable- BP 115/85, HR 67, RR 20, 99% on room air, T 98.7F. EKG demonstrated NSR, rate 59, normal axis, normal interals, no acute ST-T wave changes. CXR demonstrated cardiomegaly, no acute process. Labs were unremarkable for acute process. CTA chest shows chronic changes left hilum, no pneumonia, no PE. CT brain shows chronic changes. Pt. was admitted observation for syncopal episode, plan cardiac monitoring to exclude arrhythmia as etiology of syncope. 10/22/18: Pt. is resting in bed. Labs this am and VS wnl. She denies further syncopal episodes since admission. She does admit to falling 3 times in the recent past due to a "bad knee". She states that she lives alone and her daughter and grandson visit her in the evenings. She admits to drinking mainly coffee- about 3 cups per day. Plan for PT/OT eval, possible need for home care services. Cardiology consult planned for today. Orthostats are in progress at the present time. PCP: Dr. Albert Travel Screening - Travel/Exposure Within Last 30 Days Have you traveled within the last 30 days?: No - Travel/Exposure Within Last Year Have you traveled outside the [place] in the last year?: No - Additonal Travel Details Have you been exposed to anyone with a communicable illness?: No - Travel Symptoms Symptom Screening: None Review of Systems Constitutional: Denies: Chills, Fever, Malaise, Night sweats Eyes: Denies: Eye discharge, Eye pain ENT: Denies: Congestion, Ear pain, Epistaxis Respiratory: Reports: Dyspnea. Denies: Cough, Wheezes Cardiovascular: Reports: Dyspnea on exertion. Denies: Chest pain, Edema Endocrine: Denies: Fatigue, Heat or cold intolerance Gastrointestinal: Denies: Abdominal pain, Nausea, Vomiting Genitourinary: Denies: Incontinence, Retention Musculoskeletal: Denies: Arthralgia, Back pain, Gout, Joint swelling Skin: Denies: Bruising, Change in color Neurological: Denies: Abnormal gait, Confusion, Headache, Tingling, Tremors Psychiatric: Denies: Anxiety Hematological/Lymphatic: Reports: Blood Clots. 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, emphysema - CARDIOVASCULAR Hx Cardio Disorders: Yes Hx Hypertension: Yes Comment:: high cholesterol - NEURO Hx Neuro Disorders: No Hx Seizures: No - GI Hx GI Disorders: No Hx Obstructive Bowel: Yes - Hx Genitourinary Disorders: No Hx Bladder Problem: Yes - ENDOCRINE Hx Endocrine Disorders: No Hx Diabetes: No Hx Thyroid Disease: Yes - MUSCULOSKELETAL Hx Musculoskeletal Disorders: Yes Hx Arthritis: Yes Hx Osteoporosis: Yes - PSYCH Hx Psych Problems: No Hx Anxiety: Yes Hx Behavior Problems: No Hx Depression: Yes Hx Emotional Abuse: No Hx Sexual Abuse: No Hx Suicide Attempt: No - HEMATOLOGY/ONCOLOGY Hx Hematology/Oncology Disorders: Yes Hx Cancer: Yes (Lung) Hx Chemotherapy: Yes Hx Radiation Therapy: Yes Comment:: prophylactic radiation to brain Family Medical History Any Significant Family History?: Yes Hx Dementia: Grandparents Hx Depression: Mother Hx Heart Disease: Father, Mother, Brother/Sister Hx HTN: Brother/Sister Hx Resp Disorders: Mother H&P Meds/Allergies - Allergies Allergies: Allergies Allergy/AdvReac Type Severity Reaction Status Date / Time regadenoson [From Lexiscan] AdvReac HYPERSENSIT Verified 10/21/18 17:57 IVITY - Home Medications Previous Rx's Medication Instructions Recorded Acetaminophen [Tylenol 500Mg Tab] 1,000 mg PO Q6H PRN 01/06/17 - Active Medications Active Medications: Current Medications Citalopram Hydrobromide (Celexa) mg PO DAILY [facility] Sodium Chloride () 1,000 mls @ 100 mls/hr IV .Q10H PRN PRN Reason: LARGE VOLUME IV Levothyroxine Sodium (Synthroid) 25 mcg PO DAILYTHY ESTRELLA Non-Formulary Medication (Arformoterol Tartrate [Brovana]) 15 mcg IH BID ESTRELLA Non-Formulary Medication (Atorvastatin Calcium [Atorvastatin Calcium]) 40 mg PO QD ESTRELLA Physical Exam - Vital Signs Vital Signs: Vital Signs - Last 24 Hrs Temp Pulse Pulse Resp BP BP Pulse Ox 10/21/18 20:57 60 20 158/69 100 10/21/18 18:55 98.6 F 57 L 17 10/21/18 18:03 98.7 F 67 20 115/85 99 - General General Appearance: Alert, Oriented x3, Cooperative Limitations: No limitations - Head Head exam: Atraumatic, Normocephalic, Normal inspection Head exam detail: negative: Abrasion, Contusion, Huitron's sign, General tenderness, Hematoma, Laceration - Eye Eye exam: Normal appearance. negative: Conjunctival injection, Periorbital swelling, Periorbital tenderness, Scleral icterus - ENT Ear exam: negative: Auricular hematoma, Auricular trauma Nasal Exam: negative: Active bleeding, Discharge, Dried blood, Foreign body Mouth exam: negative: Drooling, Laceration, Muffled voice, Tongue elevation - Neck Neck exam: Normal inspection. negative: Meningismus, Tenderness - Respiratory Respiratory exam: Normal lung sounds bilaterally. negative: Respiratory distress, Rhonchi, Stridor, Wheezes - Cardiovascular Cardiovascular Exam: Regular rate, Normal rhythm, Normal heart sounds - GI/Abdominal GI/Abdominal exam: Soft. negative: Distended, Rebound, Rigid, Tenderness - Rectal Rectal exam: Deferred - exam: Deferred - Extremities Extremities exam: Normal inspection. negative: Pedal edema, Tenderness - Back Back exam: Denies: CVA tenderness (R), CVA tenderness (L) - Neurological Neurological exam: Alert, Oriented X3 - Psychiatric Psychiatric exam: Normal affect, Normal mood - Skin Skin exam: Normal color. negative: Abrasion Type of lesion: negative: abrasion Results - Labs Result Diagrams: 10/22/18 06:23 10/22/18 06:00 Labs Last 24 Hours: Laboratory Results - last 24 hr 10/21/18 10/21/18 10/21/18 18:10 18:10 18:10 WBC 11.6 RBC 4.07 Hgb 11.4 L Hct 36.5 MCV 89.7 MCH 28.0 MCHC 31.2 L RDW 13.7 Plt Count 295 MPV 9.3 Neutrophils % 85.0 H Band Neutrophils % 0.0 Eosinophils % Not Reportable Basophils % Not Reportable Absolute Neutrophils 9.56 Lymphocytes 9.0 L Monocytes 5.0 Basophils 0.0 Eosinophil Count 1.0 Sodium 136 Potassium 3.8 Chloride 97 L Carbon Dioxide 31.0 H Anion Gap 8.0 BUN 15 Creatinine 0.8 Estimated GFR > 60 Random Glucose 170 H Calcium 8.9 Total Bilirubin 0.40 AST 14 ALT 11 Alkaline Phosphatase 66 Troponin T < 0.010 Total Protein 6.3 L Albumin 3.8 L Globulin 2.5 Albumin/Globulin Ratio 1.5 Urine Color Urine Appearance Urine pH Ur Specific Peel Urine Protein Urine Glucose (UA) Urine Ketones Urine Blood Urine Nitrite Urine Bilirubin Urine Urobilinogen Ur Leukocyte Esterase 10/21/18 19:17 WBC RBC Hgb Hct MCV MCH MCHC RDW Plt Count MPV Neutrophils % Band Neutrophils % Eosinophils % Basophils % Absolute Neutrophils Lymphocytes Monocytes Basophils Eosinophil Count Sodium Potassium Chloride Carbon Dioxide Anion Gap BUN Creatinine Estimated GFR Random Glucose Calcium Total Bilirubin AST ALT Alkaline Phosphatase Troponin T Total Protein Albumin Globulin Albumin/Globulin Ratio Urine Color Yellow Urine Appearance Clear Urine pH 6.0 Ur Specific [place]el 1.010 Urine Protein Negative Urine Glucose (UA) Negative Urine Ketones Negative Urine Blood Negative Urine Nitrite Negative Urine Bilirubin Negative Urine Urobilinogen 0.2 Ur Leukocyte Esterase Negative - Imaging and Cardiology CT scan - head Status: Report reviewed (No acute process) CT scan - chest Status: Report reviewed (No acute process) VTE H&P Assessment - Risk for VTE Risk for VTE: Yes Risk Level: Low Risk Assessment Date: 10/21/18 Risk Assessment Time: 21:48 VTE Orders Placed or Will Be Placed: Yes Plan - Detailed Diagnosis and Plan (1) Syncope Current Visit: Yes Status: Acute Qualifiers: Syncope type: unspecified Qualified Code(s): R55 - Syncope and collapse Base Code: R55 - SYNCOPE AND COLLAPSE Comment: 10/22/18: -witnessed syncopal episode on 10/21 when pt stood up from sitting position -Neg head CT, neg chest CTA, no acute changes on EKG -NSR on tele -orthostats ordered today -Cardiology consult today- r/o underlying cardiac cause of syncopal episode (2) COPD (chronic obstructive pulmonary disease) Current Visit: Yes Status: Acute Qualifiers: COPD type: unspecified COPD Qualified Code(s): J44.9 - Chronic obstructive pulmonary disease, unspecified Base Code: J44.9 - CHRONIC OBSTRUCTIVE PULMONARY DISEASE, UNSPECIFIED Comment: 10/22/18: -Chest CTA demonstrates chronic changes -Continue Brovana 15mcg BID and atrovent neb qh4 [place] (3) Anemia Current Visit: Yes Status: Acute Base Code: D64.9 - ANEMIA, UNSPECIFIED Comment: 10/22/18: -Hgb on admission was 11.4, 10.3 today (likely hemodilution) -Start 325mg iron bid (4) Urinary frequency Current Visit: Yes Status: Acute Base Code: R35.0 - FREQUENCY OF MICTURITION Comment: 10/22/18: -Pt. takes vesicare prn for urinary frequency and urge incontinence -Will start 5mg ditropan bid (5) DVT prophylaxis Current Visit: No Status: Acute Base Code: [id number] - Comment: 10/22/18: -Will hold anticoagulant due to high fall risk, PT/OT eval ordered for today (6) DNR (do not resuscitate) Current Visit: No Status: Acute Base Code: Z66 - DO NOT RESUSCITATE Comment: 10/22/18: -Pt. is a DNR
[2018-10-21] MEDS: ARFORMOTEROL TARTRATE 15 MCG INH SCH (22:38)
[2018-10-21] MEDS ORDERED: IPRATROPIUM BR 0.02% NEB (0.5MG) INH SCH (23:00)
[2018-10-22] MEDS: IPRATROPIUM BR 0.02% NEB (0.5MG) INH SCH ×4 (03:32→14:41)
[2018-10-22] MEDS ORDERED: LEVOTHYROXINE SODIUM 25 MCG TABLET PO SCH (07:00)
[2018-10-22 07:14] LABS: ABSOLUTE NEUTROPHIL COUNT 5.88; BASO % 0.1 % (0-6); EOS % 2.7 % (0-6); GRAN % 68.5 % (47-80); HEMATOCRIT 33.9 % (35.0-47.0); HEMOGLOBIN 10.3 gm/dl (11.6-16.0); LYMPH % 15.7 % (16-45); MEAN CELL VOLUME 90.9 fl (81-97); MEAN CORPUSCULAR HEMOGLOBIN 27.6 pg (27-33); MEAN CORPUSCULAR HGB CONC 30.4 g/dl (32-36); PLATELET COUNT 281 K/uL (130-400); RED BLOOD COUNT 3.73 M/uL (3.80-5.40); RED CELL DISTRIBUTION WIDTH 13.7 % (11.5-14.5); WHITE BLOOD COUNT W/O DIFF 8.6 K/uL (4.2-12.2)
[2018-10-22 07:33] LABS: ALB/GLOB RATIO 1.5 (1.1-1.8); ALBUMIN 3.3 g/dL (4.0-5.0); ALKALINE PHOSPHATASE 56 U/L (35-104); ALT/SGPT 10 U/L (<33); AST/SGOT 11 U/L (10.0-35.0); BLOOD UREA NITROGEN 13 mg/dL (8-23); CREATININE 0.8 mg/dL (0.5-0.9); EST GLOMERULAR FILTRATION RATE > 60 mL/min; GLUCOSE,RANDOM 88 mg/dL (74-109); TOTAL PROTEIN 5.5 g/dL (6.6-8.7)
[2018-10-22] MEDS ORDERED: ATORVASTATIN 20 MG TABLET PO SCH (09:00)
[2018-10-22] MEDS: ARFORMOTEROL TARTRATE 15 MCG INH SCH (09:48)
[2018-10-22] MEDS ORDERED: CITALOPRAM 20 MG TABLET PO SCH (10:00)
[2018-10-22] MEDS ORDERED: FERROUS SULFATE 325 MG TAB PO SCH (11:15)
[2018-10-22] MEDS ORDERED: OXYBUTYNIN CHLORIDE 5MG TABLET PO SCH (11:30)
--- NOTE | 2018-10-22 12:40 | CT SCAN REPORT ---
EXAM: HEAD CT WITHOUT CONTRAST HISTORY: HEADACHE. HISTORY OF SMALL CELL LUNG CANCER IN 2008. POSSIBLE METASTASES. TECHNIQUE: Axial CT scan of the head was performed without IV contrast. Comparison: Head CT 01/02/17. FINDINGS: No definite acute intracranial hemorrhage identified. No focal mass effect or midline shift evident. Moderate generalized atrophy. Chronic appearing deep white matter changes as before, nonspecific, but likely representing some chronic small vessel deep white matter ischemic disease. No definite acute infarct or intracranial mass lesion seen, however, noncontrast CT is not particularly sensitive for small metastatic foci. If this remains of clinical suspicion, follow-up brain MRI with contrast would be suggested for further evaluation if not contraindicated. Persistent opacification of some right mastoid air cells similar to before. No depressed calvarial fracture evident. Oval radiolucency posteriorly in the right parietal bone has not progressed from the previous study. IMPRESSION: 1. GENERALIZED ATROPHY WITH CHRONIC APPEARING DEEP WHITE MATTER CHANGES BEFORE. 2. NO DEFINITE ACUTE INTRACRANIAL HEMORRHAGE OR FOCAL MASS EFFECT IDENTIFIED. JOB NUMBER: [id number] [facility]
--- NOTE | 2018-10-22 12:49 | CT ANGIOGRAM REPORT ---
EXAM: EMERGENCY CTA OF THE CHEST FOR PE WITH POST PROCESSING HISTORY: SYNCOPE, HISTORY OF DVT, DIFFICULTY IN BREATHING. HISTORY OF LUNG CANCER. POSSIBLE PE. TECHNIQUE: CTA of the chest was performed following the intravenous administration of iodinated contrast media. Please see the medical record for IV contrast specifics. Post processing on an independent workstation was performed with multiple 3D MIP series obtained. Comparison: Chest CTA 12/26/17. FINDINGS: No definite PE identified. No thoracic aortic aneurysm is evident. The heart size is normal. Some coronary artery calcification is present. No pleural effusion evident. A small amount of pericardial fluid is present. No definite hilar or mediastinal adenopathy is seen. No definite acute infiltrate seen. There is some soft tissue prominence posterior to the superior aspect of the left hilum. This appears unchanged from before. Pleural thickening along the posteromedial aspect of the mid hemithorax on the left also unchanged from before. Persistent interstitial prominence in the left paramediastinal region also unchanged from before and this may all represent post radiation change as previously reported given its stable appearance. Tiny bullae in the lungs again seen consistent with centrilobular emphysema. Some presumed mucus in the trachea noted previously is no longer apparent. Prominent spurring in the thoracic spine. IMPRESSION: 1. NO DEFINITE ACUTE PE IDENTIFIED. 2. HISTORY OF LUNG CANCER WITH CHANGES ABOUT THE LEFT HILUM AND ADJACENT INTERSTITIUM WELL IN THE REGION OF THE POSTEROMEDIAL PLEURA ON THE LEFT ALL APPEARING ESSENTIALLY UNCHANGED FROM BEFORE AND MAY REPRESENT POST RADIATION SCARRING BEFORE. 3. CENTRILOBULAR EMPHYSEMA BEFORE. JOB NUMBER: [id number] [facility]
--- NOTE | 2018-10-22 14:56 | Rehab Evaluation ---
Patient Information - Patient Information Diagnosis: Syncope Ordered Treatment: PT Evaluate and Treat Status: Initial Evaluation Surgery: No History: Detail (Pt presented to ED on 10/21/18 after experiencing a witnessed syn copal episode at home, after coming to standing from sitting. She was assisted to the floor after becoming dizzy and diaphoretic.) Past Medical/Surgical Hx: PAST MEDICAL/SURGICAL HISTORY Past Surgical History right salpingo-oopherectomy T and A bowel surgery r/t obstruction repair left lower leg fracture bladder sling cataract removal PMH - Respiratory Hx Respiratory Disorders Yes Hx Asthma Yes Hx Bronchitis No Hx Chronic Obstructive Yes Pulmonary Disease (COPD) Hx Dyspnea Yes Hx Pneumonia Yes Hx Pulmonary Embolism Yes Hx Sleep Apnea No Hx Tuberculosis No Hx of CPAP No Comment: 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, emphysema PMH - Cardiovascular Hx Cardiovascular Disorders Yes Hx Abnormal EKG No Hx Cardiac Catheterization No Hx Chest Pain No Hx Congestive Heart Failure No Hx Deep Vein Thrombosis No Hx Edema No Hx Heart Attack No Hx Hypertension Yes Hx Hypotension No Hx Irregular Heartbeat No Hx Palpitations No Hx Pacemaker/Defibrillator No Hx Vascular Disease No Comment: high cholesterol PMH - Neuro Hx Neurological Disorders No Hx Seizures No PMH - GI Hx Gastrointestinal Disorders No Hx Abdominal Pain No Hx Celiac Disease No Hx Crohn's Disease No Hx Diverticulitis No Hx Gastrointestinal Bleed No Hx Gastroesophageal Reflux No Hx Hepatitis/Jaundice No Hx Hiatal Hernia No Hx Irritable Bowel No Hx Liver Disease No Hx Nausea/Vomiting No Hx Obstructive Bowel Yes Hx Pancreatitis No Hx Rectal Bleeding No Hx Ulcer No Hx Weight Loss/Weight Gain No PMH - Hx Genitourinary Disorders No Patient No Hx Bladder Problem Yes Hx Dialysis No Hx Kidney Stones No Hx Renal Disease No Hx Urinary Tract Infection No PMH - Endocrine Hx Endocrine Disorders No Hx Diabetes No Hx Thyroid Disease Yes PMH - Musculoskeletal Hx Musculoskeletal Disorders Yes Hx Arthritis Yes Hx Back Injury No Hx Fibromyalgia No Hx Gout No Hx Musculoskeletal Disease No Hx Osteoporosis Yes Comment: leg fx PMH - Psych Hx Psychiatric Problems No Hx Anxiety Yes Hx Behavior Problems No Hx Depression Yes Hx Emotional Abuse No Hx Sexual Abuse No Hx Suicide Attempt No PMH - Hematology/Oncology Hx Hematology/Oncology Yes Disorders Hx Anemia No Hx Blood Disorders No Hx Bruising No Hx Cancer Yes: Lung Hx Chemotherapy Yes Hx Radiation Therapy Yes Hx Clotting Problems Yes: PE Hx Sickle Cell Disease No Hx Unexplained Bleeding No Hx Blood Transfusion Reaction No Comment: prophylactic radiation to brain Premorbid Status: Detail (Pt lives in a single story home with her daughter and grandson; she is alone during the day. She normally does not use any assistive device for ambulation; has 50 ft tubing for oxygen that she manages through her home. She has a tub-shower combination and no tub bench; she states she holds onto grab bar and stands for a shower, but she doesn't do this frequently (two weeks ago). She has four steps into the house, with a single handrail. No steps indoors. She does not drive. Her daughter does laundry and housekeeping. Pt states that most activities are limited by breathing difficulties. She has had 3 falls in the past year, that she attributes to her left knee.) Social History: Detail Precautions: [place], Fall - Time With Patient Total Time Spent With Patient (Min): 35 Treatment Procedures: Detail (PT Evaluation) Subjective Information - Subjective Information Per Patient (Pt is sitting up at side of bed, drinking coffee; nrsg just discontinued IV. Cooperative for therapy evaluation.) Objective Data - Pain Pain Present: No - Mental Status Patient Orientation: Oriented x3 - Visual Perception Appears within normal limits for therapeutic activities - ROM Not within normal limits (WNL in hips, knees, and right ankle. Dorsiflexion limited in L ankle, apparently related to soft tissue debridement of anterior tibialis long ago due to infection following fracture.) - Strength/Tone Not within normal limits (Grossly 4+/5 in all major muscle groups of B LE's with the exception of L hip flexion which is 4-/5.) - Coordination Appears within normal limits for therapeutic activities - Bed Mobility Independent - Transfers Independent - Balance Balance Sitting: Good Balance Standing: Fair (Completed Beckwith Balance test, pt scored 43/56 which is moderate risk for falls.) - Sensation Intact - Gait Detail (Ambulated w/CGA from bedside to doorway and back to bedside. No loss of balance but wanted to steady herself on bedside table. Was able to step over oxygen tubing and manage it with her hands.) Therapy Assessment - Therapy Assessment Detail (Pt exhibits L hip weakness and unsteadiness and has history of falls; she may benefit from assistive device such as four wheeled walker w/seat, as well as home safety evaluation and home physical therapy. Pt is not receptive to home PT, but is receptive to four wheeled walker.) Patient Education - Patient Education Teaching Topic: Precautions, Risk Factors Response: Reinforcement Needed Teaching Method: Discussion Teaching Recipient: Patient Barriers To Learning: None Problem List - Problem List Physical Therapy Problem List: Detail (1. L hip weakness 2. Impaired balance 3. History of falls) Goals - Goals Physical Therapy Goals: Anticipate patient going home this afternoon; no goals established. Prognosis - Prognosis Moderate (Pt expects to go home this afternoon. Declines recommendation for home safety evaluation and home PT; receptive to four wheeled walker. Pt is discharged from PT at this time.)
--- NOTE | 2018-10-22 16:11 | Discharge Summary ---
Providers Discharge Summary Date: 10/22/18 Date of admission: 10/21/18 21:10 Expected Date of Discharge: 10/22/18 Attending physician: DARRION BRASWELL Primary care physician: JOSHUA ALBERT M.D. Consults: Consult Orders 10/21/18 21:25 Consult - Cardiology NOW Consulting Provider: MIRANDA HAWK Physician Instructions: Reason For Exam: Syncope Does pt have current food supervisor?: Not Established Physical Exam - Vital Signs Vital Signs: Vital Signs - Last 24 Hrs Temp Pulse Pulse Resp BP BP Pulse Ox 10/22/18 14:42 74 20 99 10/22/18 14:41 70 20 99 10/22/18 09:55 71 18 99 10/22/18 09:00 54 L 18 10/22/18 08:00 97.6 F 54 L 17 117/54 100 10/22/18 05:45 88 16 98 10/22/18 03:44 88 16 10/22/18 03:34 88 16 10/21/18 23:50 55 L 18 10/21/18 23:00 88 16 10/21/18 21:15 98.1 F 18 145/77 100 10/21/18 20:57 60 20 158/69 100 10/21/18 18:55 98.6 F 57 L 17 10/21/18 18:03 98.7 F 67 20 115/85 99 - General General Appearance: Alert, Oriented x3, Cooperative Limitations: No limitations - Head Head exam: Atraumatic, Normocephalic, Normal inspection Head exam detail: negative: Abrasion, Contusion, Huitron's sign, General tenderness, Hematoma, Laceration - Eye Eye exam: Normal appearance. negative: Conjunctival injection, Periorbital swelling, Periorbital tenderness, Scleral icterus - ENT Ear exam: negative: Auricular hematoma, Auricular trauma Nasal Exam: negative: Active bleeding, Discharge, Dried blood, Foreign body Mouth exam: negative: Drooling, Laceration, Muffled voice, Tongue elevation - Neck Neck exam: Normal inspection. negative: Meningismus, Tenderness - Respiratory Respiratory exam: Normal lung sounds bilaterally. negative: Respiratory distress, Rhonchi, Stridor, Wheezes - Cardiovascular Cardiovascular Exam: Regular rate, Normal rhythm, Normal heart sounds - GI/Abdominal GI/Abdominal exam: Soft. negative: Distended, Rebound, Rigid, Tenderness - Rectal Rectal exam: Deferred - exam: Deferred - Extremities Extremities exam: Normal inspection. negative: Pedal edema, Tenderness - Back Back exam: Denies: CVA tenderness (R), CVA tenderness (L) - Neurological Neurological exam: Alert, Oriented X3 - Psychiatric Psychiatric exam: Normal affect, Normal mood - Skin Skin exam: Normal color. negative: Abrasion Type of lesion: negative: abrasion Hospitalization - Hospitalization Admission Diagnosis: Syncope-exclude arrhythmia. COPD-oxygen dependent - Problem List/Discharge Diagnosis (1) Syncope Current Visit: Yes Status: Acute Discharge Diagnosis: Syncope type: unspecified Qualified Code(s): R55 - Syncope and collapse Base Code: R55 - SYNCOPE AND COLLAPSE Comment: 10/22/18: -Cardiology consult today- per Dr. Hawk, likely vasovagal response causing syncopal episode, he recommends OP f/u with echo and stress test (2) COPD (chronic obstructive pulmonary disease) Current Visit: Yes Status: Acute Discharge Diagnosis: COPD type: unspecified COPD Qualified Code(s): J44.9 - Chronic obstructive pulmonary disease, unspecified Base Code: J44.9 - CHRONIC OBSTRUCTIVE PULMONARY DISEASE, UNSPECIFIED Comment: 10/22/18: -Chest CTA demonstrates chronic changes -Continue Brovana 15mcg BID and atrovent neb qh4 [place] (3) Anemia Current Visit: Yes Status: Acute Base Code: D64.9 - ANEMIA, UNSPECIFIED Comment: 10/22/18: -Hgb on admission was 11.4, 10.3 today (likely hemodilution) -Start 325mg iron bid (4) Urinary frequency Current Visit: Yes Status: Acute Base Code: R35.0 - FREQUENCY OF MICTURITION Comment: 10/22/18: -Pt. takes vesicare prn for urinary frequency and urge incontinence -Will start 5mg ditropan bid (5) DVT prophylaxis Current Visit: No Status: Acute Base Code: [id number] - Comment: 10/22/18: -Will hold anticoagulant due to high fall risk, PT/OT eval ordered for today (6) DNR (do not resuscitate) Current Visit: No Status: Acute Base Code: Z66 - DO NOT RESUSCITATE Comment: 10/22/18: -Pt. is a DNR - Hospitalization Course Disposition: Home, Self-Care Hospital Course: Mrs. Dominguez is a 72 yo female who presented to ED for evaluation of a witnessed syncopal episode at home this afternoon. Patient's friend reports that the patient became dizzy, diaphoretic, and was assisted to the floor to avoid injury. Patient denies chest pain or discomfort, denies recent illness. Patient reports history of COPD, was seen and examined at [facility] last week and diagnosed with COPD and released. Patient denies productive cough symptoms or fevers. Patient denies previous cardiac disease or arrhythmias, denies use of anticoagulation medications. Patient reports that she used to take Coumadin for DVT 4 years ago. Patient denies calf pain or swelling on examination. Patient is oxygen dependent at home. 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 In the ED, her vitals were stable- BP 115/85, HR 67, RR 20, 99% on room air, T 98.7F. EKG demonstrated NSR, rate 59, normal axis, normal interals, no acute ST-T wave changes. CXR demonstrated cardiomegaly, no acute process. Labs were unremarkable for acute process. CTA chest shows chronic changes left hilum, no pneumonia, no PE. CT brain shows chronic changes. Pt. was admitted observation for syncopal episode, plan cardiac monitoring to exclude arrhythmia as etiology of syncope. 10/22/18: Pt. is resting in bed. Labs this am and VS wnl. She denies further syncopal episodes since admission. She does admit to falling 3 times in the recent past due to a "bad knee". She states that she lives alone and her daughter and grandson visit her in the evenings. She admits to drinking mainly coffee- about 3 cups per day. Plan for PT/OT eval, possible need for home care services. Cardiology consult planned for today. Orthostats are in progress at the present time. 1600: PT/OT eval completed- recommend home PT services, pt refuses home services at this time. She states that she has a life alert necklace, she always has her cell in her pocket, and her grandson will be done with school in 2 days and he will be spending more time with her. Dr. Hawk saw pt- he states that syncopal episode was likely a vasovagal response, he recommend OP f/u with echo and stress test. Will d/c pt home, pt to f/u with PCP in 10-14 days. PCP: Dr. 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 .Continuous Abnormal Labs: Abnormal Lab Results 10/21/18 10/21/18 10/22/18 Range/Units 18:10 18:10 06:00 RBC (3.80-5.40) M/uL Hgb 11.4 L (11.6-16.0) gm/dl Hct (35.0-47.0) % MCHC 31.2 L (32-36) g/dl Neutrophils % 85.0 H (47-80) % Lymphocytes % (16-45) % Monocytes % (0-9) % Lymphocytes 9.0 L (16-45) % Chloride 97 L (98-107) mmol/L Carbon Dioxide 31.0 H 30.0 H (22-29) mmol/L Anion Gap 6.0 L (7-16) Random Glucose 170 H (74-109) mg/dL Calcium 8.4 L (8.8-10.2) mg/dL Total Protein 6.3 L 5.5 L (6.6-8.7) g/dL Albumin 3.8 L 3.3 L (4.0-5.0) g/dL 10/22/18 Range/Units 06:23 RBC 3.73 L (3.80-5.40) M/uL Hgb 10.3 L (11.6-16.0) gm/dl Hct 33.9 L (35.0-47.0) % MCHC 30.4 L (32-36) g/dl Neutrophils % (47-80) % Lymphocytes % 15.7 L (16-45) % Monocytes % 13.0 H (0-9) % Lymphocytes (16-45) % Chloride (98-107) mmol/L Carbon Dioxide (22-29) mmol/L Anion Gap (7-16) Random Glucose (74-109) mg/dL Calcium (8.8-10.2) mg/dL Total Protein (6.6-8.7) g/dL Albumin (4.0-5.0) g/dL Condition at Discharge: (2) Stable VTE Discharge VTE Reason For No Overlap Therapy: Not Indicated Discharge Medications - Discharge Medications Prescriptions: Oxybutynin Chloride [Ditropan] 5 mg PO BID 30 Days #60 tab Ferrous Sulfate [Iron] 325 mg PO BID 30 Days #60 tablet Home Medications: Ambulatory Orders Acetaminophen [Tylenol 500Mg Tab] 1,000 mg PO Q6H PRN 01/06/17 [Last Taken 10/21/18] Arformoterol Tartrate [Brovana] 15 mcg IH BID ml 04/27/18 [Last Taken 10/21/18] Cholecalciferol [Vitamin D3] 1,000 unit PO tab 04/27/18 [Last Taken 10/21/18] Ferrous Sulfate [Iron] 325 mg PO BID 30 Days #60 tablet 10/22/18 [Last Taken Unknown] Oxybutynin Chloride [Ditropan] 5 mg PO BID 30 Days #60 tab 10/22/18 [Last Taken Unknown] Discharge Plan - Discharge Instructions Activity at Discharge: Increase Activity as Tolerated Additional Instructions: Follow up appointment with Dr. Albert November 05 at 3:20pm, [facility]. Quality Measures - Quality Measures Quality Measures: Advance Directives, Documentation of Current Medications in Medical Record, Elder Maltreatment Screen and Follow-Up Plan, Screening for High Blood Pressure and F/U Documented - Current Medications Quality Measure: Measure #130: Documentation of Current Medications Documentation of Current Medications: <Current Medications Documented/Reviewed> [G8427] - Blood Pressure Screening Quality Measure: Screening for High Blood Pressure and Follow-Up Documented Does Patient Have Any of the Following: No, Active Dx of HTN Blood Pressure Classification: Pre-Hypertensive BP Reading Systolic Measurement: 115 Diastolic Measurement: 85 Screening for High Blood Pressure: < Pre-Hypertensive BP, F/U Documented > [G8950] Pre-Hypertensive Follow-up Interventions: Referral to alternative/primary care provider. - Advance Directives Quality Measure: Measure #47: Care Plan Advance Directives Established: Yes Advance Directives Information Provided To Patient: No Advance Directives on File: No Living Will: No Power of Bookkeeper Assistant: Yes Power of Bookkeeper Assistant Name: Nohemi Dominguez Advance Care Planning: <Care Plan/Decision Maker Documented; Discussed & Documented> [3723F] - Elder Abuse Suspicion Index Screening: Elder Abuse Suspicion Index Screening Rely on people for bathing, dressing, shopping, banking, etc: No Prevented from getting food, clothes, medication, etc: No Made to feel shamed or threatened by someone: No Forced to sign papers or use money against will: No Feel afraid, touched in ways not wanted or hurt physically: No Poor eye contact, withdrawn, malnourished, cuts or bruises: No Screening Result: Negative result EASI Reference Information: Calvin MENDENHALL, Yoanna C, Luis D, Shakila Eldridge.Development and validation of a tool to assist physicians identification of elder abuse: The Elder Abuse Suspicion Index (EASI ). Journal of Elder Abuse and Neglect, 2008; 20 (3): 276-300. - Elder Maltreatment Screen Quality Measures: Elder Maltreatment Screen and Follow-Up Plan Elder Maltreatment Screen: <Negative, No Follow-Up Plan Required> [G5585]
--- NOTE | 2018-10-23 09:40 | Occupational Therapy Tx Note ---
Occupational Therapy Tx Note - Treatment Note Occupational Therapy Treatment Note: Detail (Patient discharged home prior to OT evalulation)
== END 2018-10-22 18:11 | disposition home or self-care (01) ==
LOC: ER 17:41 → MEDSURG 21:10
PROVIDERS: ADMIT Internal Medicine; ATTEND Internal Medicine
DX: J44.9 Chronic obstructive pulmonary disease, unspecified (principal); J43.9 Emphysema, unspecified; J45.909 Unspecified asthma, uncomplicated; Z99.81 Dependence on supplemental oxygen; R06.02 Shortness of breath; R35.0 Frequency of micturition; D64.9 Anemia, unspecified; I10 Essential (primary) hypertension; E78.00 Pure hypercholesterolemia, unspecified; E03.9 Hypothyroidism, unspecified; M19.90 Unspecified osteoarthritis, unspecified site; M81.0 Age-related osteoporosis without current pathological fracture; Z87.891 Personal history of nicotine dependence; Z66 Do not resuscitate; Z86.711 Personal history of pulmonary embolism; Z85.118 Personal history of other malignant neoplasm of bronchus and lung; Z86.718 Personal history of other venous thrombosis and embolism
CPT/HCPCS: 85025; 80053 ×2; 81003; 84484 ×2; 85027; 71275; 70450; 94640 ×2; 94761; 93005; 93010; 94760; G0378 ×2; Q9967; J3490; 99220; 99285

== ENCOUNTER 2019-03-25 21:13 | Emergency (ER) | payer MEDICARE, BC ==
--- NOTE | 2019-03-25 21:25 | Emergency Department Record ---
History of Present Illness - General Chief complaint: Lower Extremity Pain Stated complaint: KNEE PAIN Time Seen by Provider: 03/25/19 21:19 Source: Patient, EMS Mode of Arrival: Stretcher Limitations: No limitations - History of Present Illness Initial comments: 73 yo female presents by EMS. She used her medical alert because she was unable to get up out of a chair due to knee pain. She states she has chronic pain and instability of the left knee. She states it gives out and feels like it moves out of place at times. She was sitting in a chair tonight and tried to get up but she was not able. She lives alone and had no help to get her up. She states due to the pain and instability she was unable to ambulate. She denies normally using a cane or walker. She is on home oxygen for COPD. She states it is "bad all the time". She denies any falls or trauma. MD Complaint: Extremity pain, Joint pain -: Hour(s) Location: Left, Knee History of Same: Yes -: Yes Arthralgia Radiation: Distal Quality: Aching Consistency: Constant Improves with: Nothing Worsens with: Exertion, Walking, Weight bearing Associated Symptoms: Denies other symptoms - Related Data Home Medications Medication Instructions Recorded Confirmed Last Taken Albuterol Sulfate 0.083% [Neb] 1 unit INH Q4HR 03/25/19 03/25/19 03/25/19 [Albuterol Sulfate] Previous Rx's Medication Instructions Recorded Acetaminophen [Tylenol 500Mg Tab] 1,000 mg PO Q6H PRN 01/06/17 Allergies Allergy/AdvReac Type Severity Reaction Status Date / Time regadenoson [From Lexiscan] AdvReac HYPERSENSIT Verified 03/25/19 21:31 IVITY Review of Systems Constitutional: Reports: Weakness. Denies: Chills, Fever, Malaise Eyes: Denies: Eye discharge ENT: Denies: Congestion, Throat pain Respiratory: Reports: Cough, Wheezes Cardiovascular: Reports: Dyspnea on exertion. Denies: Chest pain, Edema, Palpitations, Syncope Endocrine: Denies: Fatigue, Polydipsia, Polyuria Gastrointestinal: Denies: Abdominal pain, Diarrhea, Nausea, Vomiting Genitourinary: Denies: Dysuria Musculoskeletal: Reports: Arthralgia, Myalgia. Denies: Back pain, Joint swelling, Neck pain Skin: Denies: Bruising, Change in color, Rash Neurological: Denies: Headache, Numbness, Vertigo, Weakness Psychiatric: Denies: Anxiety Hematological/Lymphatic: Denies: Easy bleeding, Easy bruising Past Medical History - SOCIAL HISTORY Smoking Status: Former smoker Drug Use: None - RESPIRATORY Hx Respiratory Disorders: Yes Hx Asthma: Yes Hx COPD: Yes Hx Pulmonary Embolism: Yes Comment:: 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, emphysema - CARDIOVASCULAR Hx Cardio Disorders: Yes Hx Hypertension: Yes Comment:: high cholesterol - NEURO Hx Neuro Disorders: No Hx Seizures: No - GI Hx GI Disorders: No Hx Obstructive Bowel: Yes - Hx Genitourinary Disorders: No Hx Bladder Problem: Yes - ENDOCRINE Hx Endocrine Disorders: No Hx Diabetes: No Hx Thyroid Disease: Yes - MUSCULOSKELETAL Hx Musculoskeletal Disorders: Yes Hx Arthritis: Yes Hx Osteoporosis: Yes - PSYCH Hx Psych Problems: No Hx Anxiety: Yes Hx Behavior Problems: No Hx Depression: Yes Hx Emotional Abuse: No Hx Sexual Abuse: No Hx Suicide Attempt: No - HEMATOLOGY/ONCOLOGY Hx Hematology/Oncology Disorders: Yes Hx Cancer: Yes (Lung) Hx Chemotherapy: Yes Hx Radiation Therapy: Yes Comment:: prophylactic radiation to brain Family Medical History Hx Dementia: Grandparents Hx Depression: Mother Hx Heart Disease: Father, Mother, Brother/Sister Hx HTN: Brother/Sister Hx Resp Disorders: Mother Physical Exam - General General Appearance: Alert, Oriented x3, Cooperative, No acute distress Limitations: No limitations - Head Head exam: Atraumatic, Normocephalic, Normal inspection Head exam detail: negative: Abrasion, Contusion, Hematoma, Laceration - Eye Eye exam: Normal appearance, PERRL. negative: Conjunctival injection, Scleral icterus Pupils: Normal accommodation - ENT ENT exam: Normal exam, Mucous membranes moist Ear exam: Normal external inspection Nasal Exam: Normal inspection Mouth exam: Normal external inspection - Neck Neck exam: Normal inspection, Full ROM. negative: Tenderness - Respiratory Respiratory exam: Decreased breath sounds, Prolonged expiratory, Wheezes. negative: Normal lung sounds bilaterally, Accessory muscle use, Respiratory distress - Cardiovascular Cardiovascular Exam: Regular rate, Normal rhythm, Normal heart sounds - GI/Abdominal GI/Abdominal exam: Soft. negative: Distended, Guarding, Tenderness - Rectal Rectal exam: Deferred - exam: Deferred - Extremities Extremities exam: Joint swelling, Normal capillary refill, Tenderness, Other (She is able to bear weight at the bedside, she pivots, and has no pain.). negative: Calf tenderness, Full ROM, Pedal edema Image of Full Body: 1 - mild swelling, consistent with chronic arthritic changes, no abnormal warmth or redness, patella tracks normally, lateral joint line tenderness. - Back Back exam: Denies: CVA tenderness (R), CVA tenderness (L) - Neurological Neurological exam: Alert, Oriented X3. negative: Motor sensory deficit - Psychiatric Psychiatric exam: Normal affect, Normal mood. negative: Agitated, Anxious - Skin Skin exam: Dry, Intact, Normal color, Warm Course Vital Signs 03/25/19 21:19 Pulse Rate [ 89 Pulse Ox Probe] Respiratory 24 Rate Blood Pressure 168/94 [Left Arm] Pulse Ox 98 - Reevaluation(s) Reevaluation #1: 03/25/19 21:42 The patient on arrival is able to stand without pain and move within the room Her vitals were reviewed No acute abnormalities She denies a need for a nebulizer treatment at this time 03/25/19 22:00 The CBC is normal 03/25/19 22:03 The patient's daughter is in the ED. She states this knee has been an issue for a long time. The patient declined prior orthopedic referrals. She does have a walker in her house but does not use it frequently 03/25/19 22:13 UA and BMP is normal 03/25/19 22:15 The XR was reviewed. Significant degenerative changes noted. No fracture or dislocation The patient expresses a wish for DC home given she is back at her baseline Given the pain is gone and she is at baseline she will be discharged with her daughter She was given a referral to orthopedics for outpatient follow up We discussed that she can return at any time if the knee pain returns, any concerns for her safety or well being. 03/25/19 22:26 The patient ambulated independently without pain, stable prior to DC Medical Decision Making - Lab Data Result diagrams: 03/25/19 21:55 03/25/19 21:55 Disposition Disposition: Discharge Clinical Impression: Arthritis of knee Disposition: Home, Self-Care Condition: (1) Good Instructions: Osteoarthritis (ED) Additional Instructions: Review this ER visit and the tests performed with your family doctor You have been referred to the orthopedic clinic at [facility] for follow up Return to the ER for a recheck if worse, any new concerns or questions Use your brace and walker at all times to minimize the chance of falls Referrals: [place] [DOCTOR OF OSTEOPATH] - [facility] Specialty Clin[facility] [Provider Group] Forms: Patient Portal Access Time of Disposition: 22:15 Quality - Quality Measures Quality Measures: N/A - Blood Pressure Screening Does Patient Have Any of the Following: No Blood Pressure Classification: Hypertensive Reading Systolic Measurement: 166 Diastolic Measurement: 70 Screening for High Blood Pressure: < Pre-Hypertensive BP, F/U Documented > [G8950] Pre-Hypertensive Follow-up Interventions: Referral to alternative/primary care provider.
[2019-03-25 21:36] LABS: URINE APPEARANCE CLEAR; URINE BILIRUBIN NEGATIVE (NEGATIVE); URINE BLOOD NEGATIVE (NEGATIVE); URINE COLOR YELLOW; URINE GLUCOSE (UA) NEGATIVE (NEGATIVE); URINE KETONE NEGATIVE (NEGATIVE); URINE LEUKOCYTE ESTERASE NEGATIVE (NEGATIVE); URINE NITRITE NEGATIVE (NEGATIVE); URINE PROTEIN NEGATIVE (NEGATIVE); URINE UROBILINOGEN 0.2 E.U./dL (0.20 - 1.00)
[2019-03-25 21:57] LABS: ABSOLUTE NEUTROPHIL COUNT 4.33; BASO % 0.4 % (0-6); GRAN % 64.8 % (47-80); HEMATOCRIT 39.5 % (35.0-47.0); LYMPH % 20.7 % (16-45); MEAN CELL VOLUME 89.6 fl (81-97); MEAN CORPUSCULAR HEMOGLOBIN 27.2 pg (27-33); MEAN CORPUSCULAR HGB CONC 30.4 g/dl (32-36); MEAN PLATELET VOLUME 9.7 fl (7.4-10.4); MONO % 13.1 % (0-9); PLATELET COUNT 342 K/uL (130-400); RED BLOOD COUNT 4.41 M/uL (3.80-5.40); RED CELL DISTRIBUTION WIDTH 13.5 % (11.5-14.5); WHITE BLOOD COUNT W/O DIFF 6.7 K/uL (4.2-12.2)
[2019-03-25 22:10] LABS: BLOOD UREA NITROGEN 12 mg/dL (8-23); CREATININE 0.7 mg/dL (0.5-0.9); EST GLOMERULAR FILTRATION RATE > 60 mL/min
[2019-03-25 22:11] LABS: TOTAL PROTEIN 7.8 g/dL (6.6-8.7)
[2019-03-25 22:13] LABS: GLUCOSE,RANDOM 91 mg/dL (74-109)
[2019-03-25 22:16] LABS: ALB/GLOB RATIO 1.5 (1.1-1.8); ALBUMIN 4.7 g/dL (4.0-5.0); ALKALINE PHOSPHATASE 79 U/L (35-104); ALT/SGPT 9 U/L (<33); AST/SGOT 15 U/L (10.0-35.0)
--- NOTE | 2019-03-25 22:21 | RADIOLOGY REPORT ---
EXAMINATION: Left Knee Complete, Four or More Views EXAM DATE: 03/25/2019 10:14 PM TECHNIQUE: Frontal, lateral, oblique and sunrise view INDICATION: knee pain COMPARISON: None ENCOUNTER: Initial FINDINGS: There are no acute fractures or dislocations noted. There is generalized osseous demineralization. Th ere appears to be a osteochondroma arising from the medial aspect of the proximal fibula. Mild tricom partmental degenerative changes are noted. IMPRESSION: 1. No acute abnormalities. 2. Nonacute findings, as above. Dictated by: Viola Pandey MD on 03/25/2019 10:15 PM. .
[2019-03-25] MEDS ORDERED: IPRATROPIUM/ALBUTEROL (0.5MG/3MG) NEB INH ONE (22:31)
== END 2019-03-25 23:14 | disposition home or self-care (01) ==
LOC: ER 21:13
DX: M13.861 Other specified arthritis, right knee (principal); J44.9 Chronic obstructive pulmonary disease, unspecified; Z99.81 Dependence on supplemental oxygen; Z87.891 Personal history of nicotine dependence; I10 Essential (primary) hypertension
CPT/HCPCS: 80053; 81003; 85025; 94640; 99284